=== PATIENT | male | born 1945 | race Caucasian/White ===

== ENCOUNTER 2020-08-14 23:29 | Emergency (ER) | payer MEDICARE, SELFPAY ==
[2020-08-14 23:42] VITALS: BP 143/68; PULSE 74; RESP 16; TEMP 36.4; O2SAT 96; BMI 28.4
--- NOTE | 2020-08-15 00:02 | ED_ITS ---
HPI - Male Genitourinary General Chief complaint: Urogenital-Male Stated complaint: blood in catheter Time Seen by Provider: 08/15/20 00:00 History of Present Illness HPI Narrative: Patient is a 75-year-old male paraplegic presented today with having blood in the Beth catheter. Question unable to urinate. Patient had a Beth catheter chronically. Apparently was not draining well this morning. Visiting nurse put in a new Beth catheter. Patient has no specific complaints. No coughing congestion upper respiratory symptoms. Baseline patient unable to move lower extremity. Related Data Allergies Allergy/AdvReac Type Severity Reaction Status Date / Time No Known Allergies Allergy Verified 08/14/20 23:40 [No Known Allergies*] Review of Systems Review of Systems: Constitutional: No Weight loss, No Fever, No Chills, No Night Sweats, No Fatigue, No Malaise ENT/Mouth: No Hearing loss, No Ear Pain, No Nasal Congestion, No Sinus Pain, No Hoarseness, No sore throat, No Rhinorrhea, No Swallowing Difficulty Eyes: No Eye Pain, No Swelling, No Redness, No Foreign Body, No Discharge, No Vision Changes Cardiovascular: No Chest Pain, No SOB, No Dyspnea on Exertion, No Orthopnea, No Edema, No Palpitations Respiratory: No Cough, No Sputum, No Wheezing, No Smoke Exposure, No Dyspnea Gastrointestinal: No Nausea, No Vomiting, No Diarrhea, No Constipation, No abdominal Pain, No Hematochezia, No Melena Genitourinary: no irregular bleeding, No Dysuria, No Urinary Frequency, Musculoskeletal: No joint pain, No Myalgias, No Joint Swelling Skin: No Skin Lesions, No rash Neuro: No Weakness, No Numbness, No Paresthesias, No Loss of Consciousness, No Dizziness, No Headache Psych: No Anxiety/Panic, No Depression, No SI/HI/AH/VH, No Social Issues, Heme/Lymph: No Bruising, No Bleeding,No Lymphadenopathy Endocrine: No Polyuria, No Polydipsia, No Temperature Intolerance PMFSH Past Medical History Attestation statement: The following information was validated with the patient. Medical History Spinal cord injury Physical Exam Vital Signs: Vital Signs: Last Vital Signs Temp 97.6 F 08/14/20 23:42 Pulse 74 08/14/20 23:42 Resp 16 11/07/20 23:42 BP 143/68 H 08/14/20 23:42 Pulse Ox 96 08/14/20 23:42 Body Mass Index 28.4 Appearance: Alert. Oriented X3. No acute distress. Eyes: Pupils equal, round and reactive to light. ENT: Pharynx normal. Neck: Normal inspection. Neck supple. No lymph nodes noted. No crepitus CVS: Normal heart rate and rhythm. Pulses normal. Normal S1 and S2 Respiratory: No respiratory distress. Breath sounds normal. No Wheezing. No rales Abdomen: Soft and nontender. No rigidity. No distention. good BS x4 Skin: Skin warm and dry. Normal skin color. Normal skin turgor. Extremities: No lower extremity edema. Neurovascular intact to all extremities. No Lacerations. No Rash Neuro: Oriented X 3. No motor function in bilateral lower extremity MDM - Male Genitourinary MDM Narrative Medical decision making narrative: Patient's bladder scan showed residual of 0. No evidence of retention. There is urine draining out of the catheter. It appears a Beth catheter is working. Patient's hemoglobin is 15.7. No evidence for anemia. Patient's electrolytes consistent with some mild dehydration. There is positive colonization noted in the urine. Patient has no fever no chills no symptoms. The leukocyte esterase and bacteria likely secondary to colonization. Patient in no distress. Will discharge patient home. Medical Records Attestation: I reviewed the patient's medical records. Lab Data Attestation: I reviewed the patient's lab results. Result diagrams: 08/15/20 00:17 08/15/20 00:17 Labs: Lab Results 08/15/20 08/15/20 08/15/20 Range/Units 00:17 00:17 00:17 WBC 7.3 (4.8-10.8) X10*3/uL RBC 5.01 (4.60-5.80) X10*6/uL Hgb 15.7 (14.0-18.0) g/dl Hct 48.1 (42-52) % MCV 96.0 (80-98) fL MCH 31.3 (27.0-33.0) pg MCHC 32.6 (31.0-36.0) g/dl RDW 12.8 (11.0-16.0) % Plt Count 158 L (160-400) X10*3/uL MPV 10.0 (9.4-12.4) fL Immature Gran % (Auto) 0.3 (0.0-0.4) % Neut % (Auto) 75.1 H (45-73) % Lymph % (Auto) 14.9 L (20-40) % [place] % (Auto) 7.4 (2-11) % Eos % (Auto) 1.9 (0-4) % Baso % (Auto) 0.4 (0-2) % Lymph # (Auto) 1.1 L (1.2-4.9) X10*3/uL [place] # (Auto) 0.5 (0.1-1.2) X10*3/uL Eos # (Auto) 0.1 (0.0-0.4) X10*3/uL Baso # (Auto) 0.0 (0.0-0.2) X10*3/uL Abs Immat Gran (auto) 0.02 (0.00-0.03) X10*3/uL Absolute Neuts (auto) 5.5 (2.0-8.3) X10*3/uL Absolute Nucleated RBC 0.000 (0.0-0.012) X10*3/uL Nucleated RBC % (auto) 0.0 (0.0-0.2) /100WBC Sodium 141 (135-145) mmol/L Potassium 4.6 (3.3-5.1) mmol/l Chloride 107 (96-108) mmol/L Carbon Dioxide 25 (22-29) mmol/L Anion Gap 14 (12-20) BUN 27 H (9-16) mg/dL Creatinine 0.97 (0.5-1.4) mg/dL Estim Creat Clear Calc 79.9 Estimated GFR > 60 Random Glucose 97 (60-115) mg/dL Calcium 9.1 (8.4-10.2) mg/dL Urine Color DARK YELLOW Urine Appearance HAZY Urine pH 7.0 (5.0-8.0) Ur Specific [place] 1.010 (1.005-1.025) Urine Protein 1+ H (NEG-TRACE) MG/DL Urine Glucose (UA) NEG (NEG) MG/DL Urine Ketones NEG (NEG) MG/DL Urine Blood 3+ H (NEG) Urine Nitrite POS H (NEG) Ur Leukocyte Esterase 3+ H (NEG) Urine RBC 15-29 H (0) /HPF Urine WBC 15-29 H (0-4) /HPF Ur Squamous Epith Cells NONE /LPF Triple Phos Crystals 1+ /LPF Urine Bacteria 3+ /LPF Discharge Plan Discharge Clinical Impression: Chronic indwelling Beth catheter Patient Disposition: Home, Self-Care Instructions: Beth Catheter Placement and Care (ED) Referrals: Deandre Huang MD [Physician] - 2 days
[2020-08-15 00:23] LABS: MANUAL DIFF FLAG NO
[2020-08-15 00:32] LABS: Glucose Urine UA NEG (NEG); Leukocyte Esterase Urine 3+ (NEG); Nitrite Urine POS (NEG); Urine Blood 3+ (NEG); Urine Ketones NEG (NEG); Urine Protein 1+ MG/DL (NEG-TRACE)
[2020-08-15 00:33] LABS: Basophils Percent Auto 0.4 % (0-2); Eosinophils Absolute Auto 0.1 X10*3/uL (0.0-0.4); Eosinophils Percent Auto 1.9 % (0-4); Hematocrit 48.1 % (42-52); Hemoglobin 15.7 g/dl (14.0-18.0); Imm Gran Abs Auto 0.02 X10*3/uL (0.00-0.03); Imm Gran Pct Auto 0.3 % (0.0-0.4); Lymphocytes Absolute Auto 1.1 X10*3/uL (1.2-4.9); Lymphocytes Percent Auto 14.9 % (20-40); Mean Corpuscular HGB Conc 32.6 g/dl (31.0-36.0); Mean Corpuscular Hemoglobin 31.3 pg (27.0-33.0); Monocytes Absolute Auto 0.5 X10*3/uL (0.1-1.2); Monocytes Percent Auto 7.4 % (2-11); Neutrophils Absolute Auto 5.5 X10*3/uL (2.0-8.3); Neutrophils Percent Auto 75.1 % (45-73); Platelet Count 158 X10*3/uL (160-400); Red Blood Count 5.01 X10*6/uL (4.60-5.80); Red Cell Distribution Width 12.8 % (11.0-16.0); White Blood Count 7.3 X10*3/uL (4.8-10.8)
[2020-08-15 00:34] LABS: Appearance Urine HAZY; Color Urine DARK YELLOW
[2020-08-15 00:44] LABS: Bacteria Urine 3+ /LPF
[2020-08-15 00:45] LABS: Triple Phosphate Crystal Urine 1+ /LPF
[2020-08-15 00:58] LABS: Anion Gap 14 (12-20); Blood Urea Nitrogen 27 mg/dL (9-16); Calcium 9.1 mg/dL (8.4-10.2); Carbon Dioxide 25 mmol/L (22-29); Chloride 107 mmol/L (96-108); Creatinine Clr Calc Pharmacy 79.9; Estimated Glomerular Filt Rate > 60; Glucose Random 97 mg/dL (60-115); Potassium 4.6 mmol/l (3.3-5.1); Sodium 141 mmol/L (135-145)
--- NOTE | 2020-08-15 02:26 | PC.NURSE ---
pt had 2 large soft brown BM's, pt cleaned and linen changed. 800cc's urine from [facility]. pt has lower extremity paralysis x 15 years from a spinal cord injury. bilateral edema to feet normal for pt, pt pointed this out upon arrival.
== END 2020-08-15 02:29 | disposition home or self-care (01) ==
LOC: HO.ED 08-15 01:31
PROVIDERS: Emergency Provider Emergency Medicine Emergency Medical Services
DX: T83.9XXA Unspecified complication of genitourinary prosthetic device, implant and graft, initial encounter (principal); Y82.9 Unspecified medical devices associated with adverse incidents; Y92.9 Unspecified place or not applicable
CPT/HCPCS: 36415; 80048; 81001; 85025; 87086; 99283

== ENCOUNTER 2020-09-03 08:27 | Emergency (ER) | payer MEDICARE, SELFPAY ==
--- NOTE | 2020-09-03 08:37 | ED.MALEGU ---
HPI - Male Genitourinary General Chief complaint: Urogenital-Male Stated complaint: urinary retention Time Seen by Provider: 09/03/20 08:36 History of Present Illness HPI Narrative: Patient is a 75-year-old male complaining of unable to urinate. Patient baseline has a Beth catheter. No output from the catheter. Visiting nurse attempted to place a new Beth to no avail. Nothing coming out patient sent to the emergency department for further evaluation Related Data Allergies Allergy/AdvReac Type Severity Reaction Status Date / Time No Known Allergies Allergy Verified 08/14/20 23:40 [No Known Allergies*] Review of Systems Review of Systems: Constitutional: No Weight loss, No Fever, No Chills, No Night Sweats, No Fatigue, No Malaise ENT/Mouth: No Hearing loss, No Ear Pain, No Nasal Congestion, No Sinus Pain, No Hoarseness, No sore throat, No Rhinorrhea, No Swallowing Difficulty Eyes: No Eye Pain, No Swelling, No Redness, No Foreign Body, No Discharge, No Vision Changes Cardiovascular: No Chest Pain, No SOB, No Dyspnea on Exertion, No Orthopnea, No Edema, No Palpitations Respiratory: No Cough, No Sputum, No Wheezing, No Smoke Exposure, No Dyspnea Gastrointestinal: No Nausea, No Vomiting, No Diarrhea, No Constipation, No abdominal Pain, No Hematochezia, No Melena Genitourinary: Unable to urinate Musculoskeletal: No joint pain, No Myalgias, No Joint Swelling Skin: No Skin Lesions, No rash Neuro: No Weakness, No Numbness, No Paresthesias, No Loss of Consciousness, No Dizziness, No Headache Psych: No Anxiety/Panic, No Depression, No SI/HI/AH/VH, No Social Issues, Heme/Lymph: No Bruising, No Bleeding,No Lymphadenopathy Endocrine: No Polyuria, No Polydipsia, No Temperature Intolerance [facility] Past Medical History Attestation statement: The following information was validated with the patient. Medical History Spinal cord injury Social History Social History Advance Directives: No Advance Directives Information Provided: Yes Physical Exam Vital Signs: Vital Signs: Last Vital Signs Temp 98 F 09/03/20 09:19 Pulse 72 09/03/20 09:19 Resp 18 09/03/20 09:19 Pulse Ox 98 09/03/20 09:19 Body Mass Index 26.7 Appearance: Alert. Oriented X3. No acute distress. Eyes: Pupils equal, round and reactive to light. ENT: Pharynx normal. Neck: Normal inspection. Neck supple. No lymph nodes noted. No crepitus CVS: Normal heart rate and rhythm. Pulses normal. Normal S1 and S2 Respiratory: No respiratory distress. Breath sounds normal. No Wheezing. No rales Abdomen: Soft and nontender. No rigidity. No distention. good BS x4 Skin: Skin warm and dry. Normal skin color. Normal skin turgor. Extremities: No lower extremity edema. Neurovascular intact to all extremities. No Lacerations. No Rash Neuro: Oriented X 3. No motor deficit. No sensory deficit. Moving all extermities. No slurred speech MDM - Male Genitourinary MDM Narrative Medical decision making narrative: Patient had difficulty urinating. Beth does not appear to be in place. A bladder scan was done on arrival was over 500. A new Beth catheter will be placed. After new Beth placed by nursing. Symptoms resolved. Will discharge patient home over L of urine was drained. Discharge Plan Discharge Clinical Impression: Acute retention of urine Patient Disposition: Home, Self-Care Instructions: Beth Catheter Placement and Care (ED) Referrals: Deandre Huang MD [Physician] - 2 days
[2020-09-03 08:42] VITALS: BP 147/68; PULSE 70; PULSE 72; RESP 18; TEMP 36.6; O2SAT 98; BMI 26.7
[2020-09-03] MEDS: Lidocaine HCl 2 % Urojet 10 ML JEL.PF.APP TOPICAL (08:54)
[2020-09-03 09:19] VITALS: PULSE 72; RESP 18; TEMP 36.6; O2SAT 98
== END 2020-09-03 10:20 | disposition home or self-care (01) ==
PROVIDERS: Emergency Provider Emergency Medicine Emergency Medical Services; PCP Internal Medicine
DX: R33.9 Retention of urine, unspecified (principal)
CPT/HCPCS: 99284

== ENCOUNTER 2020-10-29 10:38 | Emergency (ER) | payer MEDICARE, SELFPAY ==
[2020-10-29 10:45] VITALS: BP 139/92; PULSE 80; RESP 18; TEMP 36.6; O2SAT 98; BMI 25.6
--- NOTE | 2020-10-29 10:54 | ED_ITS ---
HPI - Male Genitourinary General Chief complaint: Urogenital-Male Stated complaint: cath issues Time Seen by Provider: 10/29/20 10:54 Source: patient Mode of arrival: EMS Limitations: no limitations History of Present Illness HPI Narrative: Patient has history of chronic Beth catheter catheter was changed 8 days ago patient comes here as unable to urinate since last night a bladder scan showed urine more than 678 cc in bladder patient feels some discomfort. No hematuria no fever Related Data Previous Rx's Medication Instructions Recorded ciprofloxacin HCl [Cipro] 500 mg PO BID #20 tab 10/29/20 Allergies Allergy/AdvReac Type Severity Reaction Status Date / Time No Known Allergies Allergy Verified 08/14/20 23:40 [No Known Allergies*] Review of Systems Review of Systems: Constitutional : No Weight loss, No Fever, No Chills ENT/Mouth : No sore throat, No Rhinorrhea Eyes: No Eye Pain, No Swelling Cardiovascular : No Chest Pain, no palpitations Respiratory : No Cough, No Sputum, no shortness of breath Gastrointestinal : no Nausea, No Vomiting, No Diarrhea, No abdominal Pain, no black stools Genitourinary : No Dysuria, No Urinary Frequency Musculoskeletal : No joint pain, No Myalgias, No Joint Swelling Skin : No Skin Lesions, No rash Neuro : No Weakness, No Numbness, No Dizziness, No Headache Psych : No Anxiety/Panic, No Depression Heme/Lymph: No Bruising, No Lymphadenopathy Endocrine : No Polyuria, No Polydipsia All other systems reviewed and are negative PMFSH Past Medical History Medical History Spinal cord injury Social History Social History Advance Directives: No Advance Directives Information Provided: Yes Physical Exam Vital Signs: Vital Signs: Last Vital Signs Temp 97.9 F 10/29/20 10:45 Pulse 80 10/29/20 10:45 Resp 18 10/29/20 10:45 BP 139/92 H 10/29/20 10:45 Pulse Ox 98 10/29/20 10:45 Body Mass Index 25.6 Appearance: Alert. Oriented X3. No acute distress. Eyes: Pupils equal, round and reactive to light. ENT: Pharynx normal. Neck: Normal inspection. Neck supple. CVS: Normal heart rate and rhythm. Pulses normal. Respiratory: No respiratory distress. Breath sounds normal. Abdomen: Soft and nontender. Bowel sounds are present, no mass palpable, no CVA tenderness Beth catheter in place Skin: Skin warm and dry. Normal skin color. Normal skin turgor. Extremities: No lower extremity edema. Neuro: Oriented X 3. Paraplegic Course Course Course Narrative: Patient with blocked Beth catheter unable to flush will change the Beth catheter and check the urine MDM - Male Genitourinary MDM Narrative Medical decision making narrative: Patient with chronic Beth catheter recurrent UTI urine shows UTI will discharge him home on Levaquin signs of sepsis at this time Lab Data Attestation: I reviewed the patient's lab results. Labs: Lab Results 10/29/20 Range/Units 11:17 Urine Color YELLOW Urine Appearance TURBID Urine pH 8.5 H (5.0-8.0) Ur Specific [place] 1.020 (1.005-1.025) Urine Protein 2+ H (NEG-TRACE) MG/DL Urine Glucose (UA) NEG (NEG) MG/DL Urine Ketones 5 (NEG) MG/DL Urine Blood 2+ H (NEG) Urine Nitrite POS H (NEG) Ur Leukocyte Esterase 3+ H (NEG) Urine RBC 15-29 H (0) /HPF Urine WBC 50-75 H (0-4) /HPF Ur Squamous Epith Cells NONE /LPF Triple Phos Crystals 1+ /LPF Urine Bacteria 3+ /LPF Discharge Plan Discharge Clinical Impression: Chronic indwelling Beth catheter Urinary tract infection Qualifiers: Urinary tract infection type: acute cystitis Hematuria presence: without hematuria Qualified Code(s): N30.00 - Acute cystitis without hematuria Patient Disposition: Home, Self-Care Instructions: Catheter-associated Urinary Tract Infection (ED) Additional Instructions: Drink plenty of water take antibiotic as prescribed. Report to the ER/PCP if fever/chills/vomiting/abdominal pain/back pain Prescriptions: New ciprofloxacin HCl [Cipro] 500 mg tablet 500 mg PO BID Qty: 20 RF: 0 Interventions: ED Discharge Assessment Last Done: 10/29/20 14:12 Discharge Date/Time: 10/29/20 14:13
[2020-10-29 11:28] LABS: Glucose Urine UA NEG (NEG); Nitrite Urine POS (NEG); PH 8.5 (5.0-8.0); UACC Culture Trigger YES; Urine Blood 2+ (NEG); Urine Ketones 5 MG/DL (NEG)
[2020-10-29 11:30] LABS: Appearance Urine TURBID; Color Urine YELLOW; Leukocyte Esterase Urine 3+ (NEG); Urine Protein 2+ MG/DL (NEG-TRACE)
[2020-10-29 11:38] LABS: Bacteria Urine 3+ /LPF; Triple Phosphate Crystal Urine 1+ /LPF; WBC Urine 50-75 /HPF (0-4)
[2020-10-29] MEDS: levoFLOXacin 500 MG TABLET PO (13:12)
== END 2020-10-29 14:13 | disposition home or self-care (01) ==
PROVIDERS: Emergency Provider Internal Medicine; PCP Internal Medicine
DX: T83.511A Infection and inflammatory reaction due to indwelling urethral catheter, initial encounter (principal); N30.00 Acute cystitis without hematuria
CPT/HCPCS: 51702; 51798; 81001; 81003; 87086; 99283

== ENCOUNTER 2021-02-20 21:40 | Emergency (ER) | payer MEDICARE, SELFPAY ==
[2021-02-20 21:46] VITALS: BP 158/84; PULSE 107; RESP 16; TEMP 36.4; O2SAT 95; BMI 23.7
[2021-02-20 22:03] LABS: Glucose Urine UA NEG (NEG); Leukocyte Esterase Urine 3+ (NEG); Nitrite Urine NEG (NEG); PH 8.5 (5.0-8.0); UACC Culture Trigger YES; Urine Blood 3+ (NEG); Urine Ketones NEG (NEG); Urine Protein NEG (NEG-TRACE)
[2021-02-20 22:05] LABS: Appearance Urine HAZY; Color Urine YELLOW
--- NOTE | 2021-02-20 22:17 | ED_ITS ---
HPI - General Adult General Chief complaint: General Medical Stated complaint: abd pain ? uti Time Seen by Provider: 02/20/21 22:17 Source: patient Mode of arrival: EMS Limitations: no limitations History of Present Illness HPI narrative: Patient paraplegic complaining of strong odor in the urine and increased sediments with lower abdominal pain. Patient chronic Beth catheter for last 10 years after spinal cord injury last time had infection was 4 weeks ago no fever no chills no nausea or vomiting catheter was changed about 11 days ago Related Data Previous Rx's Medication Instructions Recorded ciprofloxacin HCl [Cipro] 500 mg PO BID #20 tab 10/29/20 levofloxacin 500 mg PO DAILY 10 Days #10 tab 02/20/21 Allergies Allergy/AdvReac Type Severity Reaction Status Date / Time No Known Allergies Allergy Verified 08/14/20 23:40 [No Known Allergies*] Review of Systems Review of Systems: Yes all other systems are reviewed and are negative PMFSH Past Medical History Medical History Spinal cord injury Social History Social History Alcohol intake: current Alcohol intake frequency: 0-2 drinks per day Smoking Status: Never smoker Smoked in Last 30 Days: No Use of substances other than those prescribed or required for medical reasons: No Advance Directives: No Advance Directives Information Provided: No Physical Exam Vital Signs: Vital Signs: Last Vital Signs Temp 97.5 F 02/20/21 21:46 Pulse 107 H 02/20/21 21:46 Resp 16 02/20/21 21:46 BP 158/84 H 02/20/21 21:46 Pulse Ox 95 02/20/21 21:46 Body Mass Index 23.7 Const: General: comfortable and no acute distress Orientation/consciousness : patient oriented x3 HENMT: Head: Yes normocephalic Eyes: General: appearance normal, both eyes and all related structures Neck: Neck: Yes normal visual inspection Chest: Chest palpation & inspection: normal inspection of the chest Resp: Effort & Inspection: normal respiratory effort Auscultation: clear to auscultation bilaterally Cardio: Palpation: normal PMI Rate: regular rate Rhythm: regular rhythm Heart sounds: S1 normal heart sound present and S2 normal heart sound present Skin: General skin exam: no rashes or lesions noted Neuro: Other: Paraplegic General: patient oriented x3 Extrem: General: Yes no calf tenderness and Yes pedal edema (2+) Medical Decision Making MDM Narrative Medical decision making narrative: Patient with paraplegia with chronic indwelling Beth catheter. Bladder scan showed 1000 cc of urine UA was increased WBC count and sediment. New Beth catheter was replaced will start him on Levaquin for 10 days Lab Data Lab results reviewed: Yes I reviewed the patient's lab results. Labs: Lab Results 02/20/21 Range/Units 21:58 Urine Color YELLOW Urine Appearance HAZY Urine pH 8.5 H (5.0-8.0) Ur Specific [place] 1.010 (1.005-1.025) Urine Protein NEG (NEG-TRACE) MG/DL Urine Glucose (UA) NEG (NEG) MG/DL Urine Ketones NEG (NEG) MG/DL Urine Blood 3+ H (NEG) Urine Nitrite NEG (NEG) Ur Leukocyte Esterase 3+ H (NEG) Urine RBC 5-9 H (0) /HPF Urine WBC 1-4 (0-4) /HPF Ur Squamous Epith Cells NONE /LPF Triple Phos Crystals TRACE /LPF Amorphous Sediment 2+ /LPF Urine Bacteria 1+ /LPF Discharge Plan Discharge Clinical Impression: Acute urinary retention, Acute UTI Patient Disposition: Home, Self-Care Instructions: Catheter-associated Urinary Tract Infection (ED) Additional Instructions: Drink plenty of fluids Take antibiotics as prescribed Follow-up with your PCP Report to ER if high fever vomiting not feeling better Prescriptions: New levofloxacin 500 mg tablet 500 mg PO DAILY 10 Days Qty: 10 RF: 0 No Action ciprofloxacin HCl [Cipro] 500 mg tablet 500 mg PO BID Qty: 20 RF: 0
[2021-02-20 22:19] LABS: Amorphous Sediment Urine 2+ /LPF; Bacteria Urine 1+ /LPF; Triple Phosphate Crystal Urine TRACE /LPF; UACC CULT YES
[2021-02-20] MEDS: levoFLOXacin 500 MG TABLET PO (23:12)
--- NOTE | 2021-02-21 00:45 | PC.NURSE ---
PT discharged with EMS. Pt was alert, oriented and without distress noted. Previous RN's provided patient with and reviewed discharged instructions. Upon EMS' arrival the patient denied questions/concerns.
== END 2021-02-21 00:45 | disposition home or self-care (01) ==
PROVIDERS: Emergency Provider Internal Medicine
DX: R33.9 Retention of urine, unspecified (principal); N39.0 Urinary tract infection, site not specified; Z79.899 Other long term (current) drug therapy
CPT/HCPCS: 81001; 87086; 99284

== ENCOUNTER 2021-03-14 11:02 | Emergency (ER) | payer MEDICARE, SELFPAY ==
[2021-03-14 11:10] VITALS: BP 146/85; O2SAT 100; BMI 29.7
--- NOTE | 2021-03-14 11:31 | ED_ITS ---
HPI - General Adult General Chief complaint: General Medical Stated complaint: SINUS PAIN Time Seen by Provider: 03/14/21 11:31 Source: patient Mode of arrival: EMS Limitations: no limitations History of Present Illness HPI narrative: patient with severe right upper gum pain after putting in dentures. 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 States he tried to put in dentures and got severe pain that went into his right cheek. Onset (ago): minute(s) Location: mouth Radiation: other (right cheek) Severity: moderate Quality: stabbing Pain Consistency: intermittent Exacerbating factors: other (applying dentures) Related Data Previous Rx's Medication Instructions Recorded ciprofloxacin HCl [Cipro] 500 mg PO BID #20 tab 10/29/20 levofloxacin 500 mg PO DAILY 10 Days #10 tab 02/20/21 Allergies Allergy/AdvReac Type Severity Reaction Status Date / Time No Known Allergies Allergy Verified 08/14/20 23:40 [No Known Allergies*] Review of Systems Constitutional: Constitutional: Reports no additional constitutional complaints Eyes: Eyes: Reports no additional eye complaints ENT: Denies dizziness Cardiovascular: Cardiovascular: Reports no additional cardiovascular complaints Respiratory: Respiratory: Reports as per HPI Gastrointestinal: Gastrointestinal: Reports no additional gastrointestinal complaints Musculoskeletal: Musculoskeletal: Reports no additional musculoskeletal complaints Integumentary/Breasts: Skin/Breast: Denies rash Neurologic: Reports system reviewed and no additional complaints, except as documented, Denies dizziness and Denies Sensory deficit (Neuro) Psychiatric: Psychiatric: Denies anxiety [facility] Past Medical History Medical History Spinal cord injury Social History Social History Alcohol intake: current Alcohol intake frequency: 0-2 drinks per day Advance Directives: No Advance Directives Information Provided: No Physical Exam Vital Signs: Vital Signs: Last Vital Signs BP 146/85 H 03/14/21 11:10 Pulse Ox 100 03/14/21 11:10 Body Mass Index 29.7 Const: Other: elderly male quadriplegic Nutritional Appearance: average body habitus Orientation/consciousness: oriented to person and patient oriented x3 Limitations: no limitations HENMT: Other: mucous membrane erythema to right upper gum secondary to dentures Head: Yes normal to inspection Ears: external ears normal General nose exam: Normal external nose present Throat: Yes posterior oropharynx normal Eyes: General: appearance normal, both eyes and all related structures Neck: Other: supple Neck: Yes normal visual inspection Chest: Chest palpation & inspection: normal inspection of the chest Resp: Auscultation: clear to auscultation bilaterally Cardio: Jugular venous distension: no JVD Rate: regular rate Rhythm: regular rhythm Heart sounds: S1 normal heart sound present and S2 normal heart sound present GI: Inspection: Yes normal to inspection Palpation (GI): Soft to palpation, nontender and No hepatosplenomegaly present Auscultation: normal bowel sounds : General: Yes no CVA tenderness Back/Spine/Pelvis: Back: no CVA tenderness Skin: General skin exam: no rashes or lesions noted Neuro: General: oriented to person and patient oriented x3 Cranial nerves: Yes CN's II-XII intact bilaterally Sensory Exam: No Sensory deficit (Neuro) Extrem: General: Yes normal to inspection Psych: Appearance: grossly normal Course Course Course Narrative: Patient with irritation to his gums secondary to dentures Discharge Plan Discharge Clinical Impression: Gum inflammation Patient Disposition: Home, Self-Care Additional Instructions: salt water gargles, must see your dentist Prescriptions: No Action levofloxacin 500 mg tablet 500 mg PO DAILY 10 Days Qty: 10 RF: 0 ciprofloxacin HCl [Cipro] 500 mg tablet 500 mg PO BID Qty: 20 RF: 0 Referrals: Phillip Gates MD [Primary Care Provider] - 1 week
[2021-03-14] MEDS: Lidocaine HCl Viscous 2 % 15 ML SOLUTION 5 ML MUCOUS MEM (11:45)
[2021-03-14] MEDS: Amoxicillin 500 MG CAPSULE PO (12:41)
[2021-03-14 13:35] VITALS: BP 135/62; PULSE 68; RESP 16; TEMP 36.7; O2SAT 98
== END 2021-03-14 14:11 | disposition home or self-care (01) ==
PROVIDERS: Emergency Provider Emergency Medicine; PCP Internal Medicine
DX: K05.10 Chronic gingivitis, plaque induced (principal); G82.50 Quadriplegia, unspecified
CPT/HCPCS: 99283; 99284

== ENCOUNTER 2021-04-01 13:01 | Inpatient (IN) | payer MEDICARE, SELFPAY ==
--- NOTE | ~2021-04-01 | XR_ITS ---
EXAMINATION: XR FOOT, BILATERAL CLINICAL INFORMATION: Bilateral foot wound. COMPARISON: None TECHNIQUE: 2 views each foot. FINDINGS: RIGHT FOOT: There is mild hallux valgus deformity with mild degenerative spurring 1st MTP joint. There is diffuse osteopenia. No visible acute fracture, dislocation or subluxation seen. The joint space is maintained normal. The ankle mortise and subtalar joints are normal. There is moderate dorsal foot soft tissue swelling. LEFT FOOT: There is moderate dorsal midfoot soft tissue swelling. There is a nondisplaced fracture proximal segment proximal phalanx 1st digit. No other fractures seen. There is diffuse osteopenia. The ankle mortise and subtalar joints are normal. XR/XR foot RT 2V IMPRESSION: Nondisplaced fracture proximal end proximal phalanx 1st digit left foot. There is diffuse osteopenia of the entire foot with moderate dorsal foot soft tissue swelling. There is moderate right dorsal midfoot soft tissue swelling but no visible fracture or dislocation. There is diffuse osteopenia. There is degenerative spurring 1st metatarsophalangeal joint.
--- NOTE | ~2021-04-01 | XR_ITS ---
EXAMINATION: XR FOOT, BILATERAL CLINICAL INFORMATION: Bilateral foot wound. COMPARISON: None TECHNIQUE: 2 views each foot. FINDINGS: RIGHT FOOT: There is mild hallux valgus deformity with mild degenerative spurring 1st MTP joint. There is diffuse osteopenia. No visible acute fracture, dislocation or subluxation seen. The joint space is maintained normal. The ankle mortise and subtalar joints are normal. There is moderate dorsal foot soft tissue swelling. LEFT FOOT: There is moderate dorsal midfoot soft tissue swelling. There is a nondisplaced fracture proximal segment proximal phalanx 1st digit. No other fractures seen. There is diffuse osteopenia. The ankle mortise and subtalar joints are normal. XR/XR foot LT 2V IMPRESSION: Nondisplaced fracture proximal end proximal phalanx 1st digit left foot. There is diffuse osteopenia of the entire foot with moderate dorsal foot soft tissue swelling. There is moderate right dorsal midfoot soft tissue swelling but no visible fracture or dislocation. There is diffuse osteopenia. There is degenerative spurring 1st metatarsophalangeal joint.
[2021-04-01 13:12] VITALS: BP 189/79; PULSE 55; RESP 17; TEMP 36.6; O2SAT 99; BMI 26.5
[2021-04-01 13:30] VITALS: BP 183/79; PULSE 65; RESP 16; TEMP 36.6; O2SAT 99
[2021-04-01 13:49] LABS: MANUAL DIFF FLAG NO
[2021-04-01 13:50] LABS: Basophils Percent Auto 0.3 % (0-2); Eosinophils Absolute Auto 0.1 X10*3/uL (0.0-0.4); Eosinophils Percent Auto 1.8 % (0-4); Hematocrit 51.2 % (42-52); Hemoglobin 16.2 g/dl (14.0-18.0); Imm Gran Abs Auto 0.01 X10*3/uL (0.00-0.03); Imm Gran Pct Auto 0.3 % (0.0-0.4); Lymphocytes Absolute Auto 0.7 X10*3/uL (1.2-4.9); Lymphocytes Percent Auto 16.5 % (20-40); Mean Corpuscular HGB Conc 31.6 g/dl (31.0-36.0); Mean Corpuscular Hemoglobin 31.1 pg (27.0-33.0); Mean Corpuscular Volume 98.3 fL (80-98); Mean Platelet Volume 9.8 fL (9.4-12.4); Monocytes Absolute Auto 0.3 X10*3/uL (0.1-1.2); Monocytes Percent Auto 7.6 % (2-11); Neutrophils Absolute Auto 2.9 X10*3/uL (2.0-8.3); Neutrophils Percent Auto 73.5 % (45-73); Platelet Count 182 X10*3/uL (160-400); Red Blood Count 5.21 X10*6/uL (4.60-5.80); Red Cell Distribution Width 13.2 % (11.0-16.0)
[2021-04-01 13:55] LABS: INTERNATIONAL NORM RATIO 0.9 (0.9-1.1); Prothrombin Time 11.2 SEC (10.8-13.0)
[2021-04-01 14:23] LABS: Glucose Urine UA NEG (NEG); Leukocyte Esterase Urine 3+ (NEG); Nitrite Urine NEG (NEG); PH 7.5 (5.0-8.0); UACC Culture Trigger YES; Urine Blood NEG (NEG); Urine Ketones NEG (NEG); Urine Protein NEG (NEG-TRACE)
[2021-04-01 14:24] LABS: Appearance Urine HAZY; B Type Natriuretic Peptide 82 pg/mL (<100); Color Urine YELLOW
[2021-04-01 14:33] LABS: Alanine Aminotransferase 14 U/L (0-40); Albumin Level 4.1 g/dL (3.5-5.0); Alkaline Phosphatase 121 U/L (39-117); Anion Gap 13 (12-20); Aspartate Amino Transferase 28 U/L (5-37); Bilirubin Total 0.5 mg/dL (0.0-1.0); Blood Urea Nitrogen 16 mg/dL (9-16); Calcium 9.9 mg/dL (8.4-10.2); Carbon Dioxide 31 mmol/L (22-29); Chloride 103 mmol/L (96-108); Creatinine Clr Calc Pharmacy 107.5; Estimated Glomerular Filt Rate > 60; Glucose Random 108 mg/dL (60-115); Magnesium 2.3 mg/dL (1.6-2.6); Potassium 5.1 mmol/L (3.3-5.1); Sodium 142 mmol/L (135-145); Total Protein 7.4 g/dL (6.5-8.0)
--- NOTE | 2021-04-01 14:33 | HE.PHANOTE ---
Pharmacy Consult ? Medication Reconciliation Pharmacy has completed the medication reconciliation and there were no significant medication issues requiring provider attention. Wendy EngleD
[2021-04-01 14:37] VITALS: BP 179/92; PULSE 60; RESP 18; O2SAT 99
[2021-04-01 14:37] LABS: Bacteria Urine 2+ /LPF; RBC Urine 0-2 /HPF (0)
[2021-04-01 14:38] LABS: WBC Clumps Urine NOTED
--- NOTE | 2021-04-01 14:56 | ED_ITS ---
HPI - Wound/Laceration General Chief Complaint: Wound/Laceration Stated Complaint: left foot wound ?infection Time Seen by Provider: 04/01/21 13:18 Source: patient and EMS Mode of arrival: EMS Limitations: no limitations History of Present Illness HPI narrative: 75-year-old male with a past medical history of spinal cord injury now paraplegic with chronic lymphedema of bilateral lower extremities, trigeminal neuralgia, chronic UTIs with Beth catheter in place presenting to the ED with complaints of worsening pain/redness/drainage of the wound to his left lower foot dorsal aspect that he sustained approximately 3 months ago although approximately 1-2 weeks ago he re-injured it and the scab fell off and is progressively worsening. He reports that he is wheelchair-bound due to him being paralyzed from a spinal cord injury, a few weeks ago he hit his foot on the wheelchair ramp and has been trying to treat the wound himself but due to him having to transfer himself in and out of the wheelchair the wound/foot rubs against the floor and this is making the wound worse. He denies any fevers, any falls, any other injuries complaints or concerns at this time. Onset (ago): week(s) (Weeks worse today) Extremity Location: bilateral: foot Place: home Context: accidental Associated symptoms: pain and other (Redness/drainage) Treatments prior to arrival: bandage Related Data Home Medications Medication Instructions Recorded Confirmed gabapentin 1 tab PO BID PRN 04/01/21 04/01/21 Allergies Allergy/AdvReac Type Severity Reaction Status Date / Time No Known Allergies Allergy Verified 08/14/20 23:40 [No Known Allergies*] Review of Systems Review of Systems: Constitutional : No Fever, No Chills, Cardiovascular : No Chest Pain, No SOB Respiratory : No Dyspnea Gastrointestinal : No abdominal pain Musculoskeletal :positive chronic b/l LE Joint Swelling Skin : positive skin wounds, No skin laceration, No Foreign bodies, No rash, No surrounding erythema Neuro : No Weakness, No Numbness/tingling Psych : No SI/HI/thoughts of self injury Yes all other systems are reviewed and are negative [facility] Past Medical History Attestation statement: The following information was validated with the patient. Medical History (Updated 04/01/21 @ 16:27 by CATHY Mathur) Chronic UTI (urinary tract infection) Beth catheter in place Paraplegia Spinal cord injury Social History Social History Alcohol intake: never Patient Tobacco Use Status: Never used Tobacco Use of substances other than those prescribed or required for medical reasons: No Advance Directives: Yes Advance Directives Information Provided: Yes Advance Directives on File: No Physical Exam Vital Signs: Vital Signs: Last Vital Signs Temp 97.8 F 04/01/21 13:30 Pulse 60 04/01/21 14:37 Resp 18 04/01/21 14:37 BP 179/92 H 04/01/21 14:37 Pulse Ox 99 04/01/21 14:37 Body Mass Index 26.5 vital signs have been reviewed as normal and appeared to be correct. Blood pressure hypertensive at 189/79. Heart rate normal. Respiration rate normal. Temperature normal. Oxygen saturation normal. Appearance: Alert. Oriented X3. No acute distress. Head: Normal external exam. Normocephalic. Atraumatic. Eyes: PERRLA. EOMI. Conjunctiva and sclera normal. Eyelids normal. ENT: Pharynx normal. Uvula midline. Moist mucous membranes. Neck: Normal inspection. Neck supple. FROM. No adenopathy. No meningeal signs. CVS: Normal heart rate and rhythm. Heart sound normal. Pulses normal throughout. No murmurs/rales/gallops. Respiratory: No respiratory distress. Painless inspiration. Breath sounds normal. No wheezes/rales/rhonchi noted. Chest nontender. No accessory muscle usage noted or decreased air movement noted. Back: Full range of motion noted. No rashes/lesion/induration/fluctuance or signs of infection noted. Skin: Skin warm and dry. Normal skin color. Normal skin turgor. Patient with multiple wounds to bilateral lower feet see pictures below the main wound is on the left lower extremity on the dorsal aspect that has mild purulent drainage. Otherwise no streaking noted. No fluctuance is noted. No rashes noted. Extremities: positive lower extremity edema. No calf tenderness. Otherwise all other nontender to all other extremities. Neuro: Oriented X 3. Positive chronic bilateral lower extremity motor weakness. Positive bilateral lower extremity sensory defect. Otherwise no motor or sensory defect to upper extremities. No focal neuro deficits noted. Vascular: + radial pulses/+ 2 distal pedal pulses/+2 dorsalis pedis b/l. No cyanosis noted to upper extremity nails and lower extremity toes nails. Course Course Course Narrative: 13:30pm - 75-year-old male with a past medical history of spinal cord injury leaving him in paraplegic to his bilateral lower extremities with chronic Beth in felicita ce/chronic UTIs and lymphedema of bilateral lower extremities presenting to the ED with complaints of wounds to his bilateral lower extremities that he sustained months ago and has been treating himself at home although a few weeks ago the scabs came off in his wounds are progressively worsening with drainage. Plan: Labs, blood cultures, lactic acid, x-ray of bilateral feet, provide fluids then re-evaluate. Reevaluation(s) Reevaluation #1: - Labs return patient with a white blood cell count of 4000. Otherwise all other labs are within normal limits. UA revealed +3 leukocytes. - x-ray of bilateral feet revealed nondisplaced fracture proximal and proximal phalanx 1st digit left foot. Along with diffuse osteopenia of the entire foot with moderate dorsal foot soft tissue swelling. The right foot also has dorsal soft tissue swelling no visible fractures or dislocations. Also has diffuse osteopenia and bone sparring. Otherwise no evidence of osteomyelitis. - therefore at this time will admit the patient for cellulitis/wounds for IV antibiotics and wound care patient will end up needing VNA services as he re ports he has an aide once today for an hour. Dr. Munoz at bedside admitting patient. Patient understands agrees with this plan. Time: 15:45 MDM - Wound/Laceration Medical Records Attestation: I reviewed the patient's medical records. Lab Data Attestation: I reviewed the patient's lab results. Result diagrams: 04/01/21 13:38 04/01/21 13:38 Labs: Lab Results 04/01/21 04/01/21 04/01/21 Range/Units 13:38 13:38 13:38 WBC 4.0 L (4.8-10.8) X10*3/uL RBC 5.21 (4.60-5.80) X10*6/uL Hgb 16.2 (14.0-18.0) g/dl Hct 51.2 (42-52) % MCV 98.3 H (80-98) fL MCH 31.1 (27.0-33.0) pg MCHC 31.6 (31.0-36.0) g/dl RDW 13.2 (11.0-16.0) % Plt Count 182 (160-400) X10*3/uL MPV 9.8 (9.4-12.4) fL Immature Gran % (Auto) 0.3 (0.0-0.4) % Neut % (Auto) 73.5 H (45-73) % Lymph % (Auto) 16.5 L (20-40) % [place] % (Auto) 7.6 (2-11) % Eos % (Auto) 1.8 (0-4) % Baso % (Auto) 0.3 (0-2) % Lymph # (Auto) 0.7 L (1.2-4.9) X10*3/uL [place] # (Auto) 0.3 (0.1-1.2) X10*3/uL Eos # (Auto) 0.1 (0.0-0.4) X10*3/uL Baso # (Auto) 0.0 (0.0-0.2) X10*3/uL Abs Immat Gran (auto) 0.01 (0.00-0.03) X10*3/uL Absolute Neuts (auto) 2.9 (2.0-8.3) X10*3/uL Absolute Nucleated RBC 0.000 (0.0-0.012) X10*3/uL Nucleated RBC % (auto) 0.0 (0.0-0.2) /100WBC PT 11.2 (10.8-13.0) SEC INR 0.9 (0.9-1.1) Sodium 142 (135-145) mmol/L Potassium 5.1 (3.3-5.1) mmol/L Chloride 103 (96-108) mmol/L Carbon Dioxide 31 H (22-29) mmol/L Anion Gap 13 (12-20) BUN 16 (9-16) mg/dL Creatinine 0.72 (0.5-1.4) mg/dL Estim Creat Clear Calc 107.5 Estimated GFR > 60 Random Glucose 108 (60-115) mg/dL Lactic Acid (0.5-2.0) mmol/L Calcium 9.9 D (8.4-10.2) mg/dL Magnesium 2.3 (1.6-2.6) mg/dL Total Bilirubin 0.5 (0.0-1.0) mg/dL AST 28 (5-37) U/L ALT 14 (0-40) U/L Alkaline Phosphatase 121 H (39-117) U/L B-Natriuretic Peptide (<100) pg/mL Total Protein 7.4 (6.5-8.0) g/dL Albumin 4.1 (3.5-5.0) g/dL Urine Color Urine Appearance Urine pH (5.0-8.0) Ur Specific [place] (1.005-1.025) Urine Protein (NEG-TRACE) MG/DL Urine Glucose (UA) (NEG) MG/DL Urine Ketones (NEG) MG/DL Urine Blood (NEG) Urine Nitrite (NEG) Ur Leukocyte Esterase (NEG) Urine RBC (0) /HPF Urine WBC (0-4) /HPF Urine WBC Clumps Ur Squamous Epith Cells /LPF Urine Bacteria /LPF 04/01/21 04/01/21 04/01/21 Range/Units 13:38 13:38 13:38 WBC (4.8-10.8) X10*3/uL RBC (4.60-5.80) X10*6/uL Hgb (14.0-18.0) g/dl Hct (42-52) % MCV (80-98) fL MCH (27.0-33.0) pg MCHC (31.0-36.0) g/dl RDW (11.0-16.0) % Plt Count (160-400) X10*3/uL MPV (9.4-12.4) fL Immature Gran % (Auto) (0.0-0.4) % Neut % (Auto) (45-73) % Lymph % (Auto) (20-40) % [place] % (Auto) (2-11) % Eos % (Auto) (0-4) % Baso % (Auto) (0-2) % Lymph # (Auto) (1.2-4.9) X10*3/uL [place] # (Auto) (0.1-1.2) X10*3/uL Eos # (Auto) (0.0-0.4) X10*3/uL Baso # (Auto) (0.0-0.2) X10*3/uL Abs Immat Gran (auto) (0.00-0.03) X10*3/uL Absolute Neuts (auto) (2.0-8.3) X10*3/uL Absolute Nucleated RBC (0.0-0.012) X10*3/uL Nucleated RBC % (auto) (0.0-0.2) /100WBC PT (10.8-13.0) SEC INR (0.9-1.1) Sodium (135-145) mmol/L Potassium (3.3-5.1) mmol/L Chloride (96-108) mmol/L Carbon Dioxide (22-29) mmol/L Anion Gap (12-20) BUN (9-16) mg/dL Creatinine (0.5-1.4) mg/dL Estim Creat Clear Calc Estimated GFR Random Glucose (60-115) mg/dL Lactic Acid 2.0 (0.5-2.0) mmol/L Calcium (8.4-10.2) mg/dL Magnesium (1.6-2.6) mg/dL Total Bilirubin (0.0-1.0) mg/dL AST (5-37) U/L ALT (0-40) U/L Alkaline Phosphatase (39-117) U/L B-Natriuretic Peptide 82 (<100) pg/mL Total Protein (6.5-8.0) g/dL Albumin (3.5-5.0) g/dL Urine Color YELLOW Urine Appearance HAZY Urine pH 7.5 (5.0-8.0) Ur Specific [place] 1.010 (1.005-1.025) Urine Protein NEG (NEG-TRACE) MG/DL Urine Glucose (UA) NEG (NEG) MG/DL Urine Ketones NEG (NEG) MG/DL Urine Blood NEG (NEG) Urine Nitrite NEG (NEG) Ur Leukocyte Esterase 3+ H (NEG) Urine RBC 0-2 (0) /HPF Urine WBC 5-9 H (0-4) /HPF Urine WBC Clumps NOTED Ur Squamous Epith Cells NONE /LPF Urine Bacteria 2+ /LPF Imaging Data X-ray of bilateral feet: Attestation: I personally reviewed and interpreted this imaging study as follows: Radiologist's impression: FINDINGS: RIGHT FOOT: There is mild hallux valgus deformity with mild degenerative spurring 1st MTP joint. There is diffuse osteopenia. No visible acute fracture, dislocation or subluxation seen. The joint space is maintained normal. The ankle mortise and subtalar joints are normal. There is moderate dorsal foot soft tissue swelling. LEFT FOOT: There is moderate dorsal midfoot soft tissue swelling. There is a nondisplaced fracture proximal segment proximal phalanx 1st digit. No other fractures seen. There is diffuse osteopenia. The ankle mortise and subtalar joints are normal. XR/XR foot RT 2V IMPRESSION: Nondisplaced fracture proximal end proximal phalanx 1st digit left foot. There is diffuse osteopenia of the entire foot with moderate dorsal foot soft tissue swelling. There is moderate right dorsal midfoot soft tissue swelling but no visible fracture or dislocation. There is diffuse osteopenia. There is degenerative spurring 1st metatarsophalangeal joint. Critical Care Time Critical Care Time Critical Care Time: Yes Total Critical Care Time: 60 Attestation: I personally attest to this time spent taking care of the patient Discharge Plan Discharge Clinical Impression: Cellulitis, Wounds, multiple, Foot fracture, left Patient Disposition: Admitted As Inpatient Prescriptions: No Action gabapentin 800 mg tablet 1 tab PO BID PRN (Reason: Pain) RF: 0
[2021-04-01] MEDS: Piperacillin Sodium/Tazobactam 3.375 GM in 0.9 % Sodium Chloride 50 ML IV (16:06)
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
[2021-04-01 16:42] VITALS: BP 171/84; PULSE 59; RESP 18; TEMP 36.6; O2SAT 100
[2021-04-01 17:51] VITALS: BP 174/87; PULSE 62; RESP 15; TEMP 36.1; O2SAT 99
[2021-04-01] MEDS: vancomycin HCL 1,000 MG in 0.9 % Sodium Chloride 250 ML 270 MG IV (18:25)
[2021-04-01] MEDS: 0.9 % Sodium Chloride Flush 3 ML SYRINGE IVFLUSH (18:26)
[2021-04-01 19:48] VITALS: BP 145/67; PULSE 81; RESP 15; TEMP 36.6; O2SAT 98
[2021-04-02] VITALS: BP 157/70; PULSE 68; RESP 18; TEMP 36.1; O2SAT 98
[2021-04-02 00:24] LABS: COVID-19 Test Negative (Negative)
[2021-04-02] MEDS: Morphine Sulfate 4 MG/ML CARTRIDGE 2 MG IVPUSH ×2 (01:23→07:35)
[2021-04-02 03:06] VITALS: BP 181/89; PULSE 63; RESP 16; TEMP 36.4; O2SAT 99
[2021-04-02 04:30] VITALS: BP 178/88
[2021-04-02 07:09] LABS: Hematocrit 45.5 % (42-52); Hemoglobin 14.2 g/dl (14.0-18.0); Mean Corpuscular HGB Conc 31.2 g/dl (31.0-36.0); Mean Corpuscular Hemoglobin 30.4 pg (27.0-33.0); Mean Corpuscular Volume 97.4 fL (80-98); Mean Platelet Volume 10.1 fL (9.4-12.4); Platelet Count 156 X10*3/uL (160-400); Red Blood Count 4.67 X10*6/uL (4.60-5.80); White Blood Count 4.3 X10*3/uL (4.8-10.8)
[2021-04-02] MEDS: vancomycin HCL 1,000 MG in 0.9 % Sodium Chloride 250 ML 270 MG IV (07:36)
[2021-04-02] MEDS: 0.9 % Sodium Chloride Flush 3 ML SYRINGE IVFLUSH (07:37)
[2021-04-02 07:39] LABS: Anion Gap 13 (12-20); Blood Urea Nitrogen 12 mg/dL (9-16); Calcium 8.9 mg/dL (8.4-10.2); Carbon Dioxide 24 mmol/L (22-29); Chloride 107 mmol/L (96-108); Creatinine Clr Calc Pharmacy 113.9; Estimated Glomerular Filt Rate > 60; Glucose Random 85 mg/dL (60-115); Potassium 4.5 mmol/L (3.3-5.1); Sodium 139 mmol/L (135-145)
[2021-04-02 08:00] VITALS: BP 140/80; PULSE 100; RESP 18; TEMP 36.2; O2SAT 98
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
--- NOTE | 2021-04-02 10:56 | PM.CNGS ---
History of Present Illness Consult details Consult date: 04/02/21 Reason for consult: wound care Requesting physician: Gregorio Munoz Narrative: 75 year old male paraplegic with wounds on his legs/feet - followed by his [facility] team but one looked worse on his dorsal foot yesterday - red etc and ? draining so he was sent to the ER - dx with cellulitis and admitted. pt has no feeling on his feet and cannot move below the chest/waist area. has had other wounds healing with scabs. Review of Systems Review of Systems: Constitutional: Denies fever, denies Chills Eyes: denies blurry vision ENT: denies sore throat CVS: denies chest pain Respiratory: Denies dyspnea GI: no abdominal pain : chornic clark MSK: denies neck pain Skin: multiple wounds on lle Neuro: paraplegia Psych: denies suicidal ideation Endocrine: denies heat/cold intoleratnce Hematologic: denies easy bleeding Allergy: denies hives Yes all other systems are reviewed and are negative [facility] Past Medical History Medical History Chronic UTI (urinary tract infection) Clark catheter in place Paraplegia Spinal cord injury Functional capacity: independent ambulation Family History Family history: reviewed and not pertinent Social History Social History Household Members: None Housing: House Do you presently have visiting nurse or other home services: Yes Alcohol intake: never Patient Tobacco Use Status: Never used Tobacco Use of substances other than those prescribed or required for medical reasons: No Currently Displaying Signs/Symptoms of Drug Intoxication Withdrawal: No Have you been hit, kicked, punched, or otherwise hurt by someone within the past year? If so, by whom?: No Do you feel safe in your current relationship?: No Current Relationship Is there a partner from a previous relationship who is making you feel unsafe now?: No Are you made to feel afraid or neglected: No Advance Directives: Yes (unknown date) Advance Directives Information Provided: Yes (unknown date) Advance Directives on File: No Advance Directives Date on File: 04/01/21 Do you have thoughts of harming others: None Do you have a plan to hurt others: No Plan Recently lost weight without trying: No Eating poorly because of decreased appetite: No Nutrition Risks: No Nutritional Risk Poor oral hygiene: No service: Yes Current occupational status: disabled Meds Allergies Allergy/AdvReac Type Severity Reaction Status Date / Time No Known Allergies Allergy Verified 08/14/20 23:40 [No Known Allergies*] Active Medications: Current Medications Generic Name Dose Route Start Last Admin Trade Name Freq PRN Reason Stop Dose Admin Acetaminophen 650 mg 04/02/21 10:02 Acetaminophen 325 Mg Tablet PO Q6H PRN pain Enoxaparin Sodium 40 mg 04/01/21 18:02 04/01/21 18:38 Enoxaparin Sodium 40 Mg/0.4 Ml Syringe SUBCUT Not Given Q24H FRANC Gabapentin 800 mg 04/01/21 18:02 Gabapentin 400 Mg Capsule PO BID PRN Pain Vancomycin HCl 1,000 mg/ 270 mls @ 270 mls/hr 04/01/21 19:00 04/02/21 09:09 Sodium Chloride IV Infused Q12H FRANC Infusion Morphine Sulfate 2 mg 04/01/21 18:02 04/02/21 07:35 Morphine Sulfate 4 Mg/Ml Cartridge IVPUSH 2 mg Q4H PRN Administration Pain, Severe (Pain Scale 7-10) Pharmacy Consult 1 each 04/01/21 18:02 Consult Rx Vancomycin Dosing MISCELLANE DAILY PRN Consult order Sodium Chloride 3 ml 04/02/21 00:00 04/02/21 07:37 0.9 % Sodium Chloride Flush 3 Ml Syringe IVFLUSH 3 ml QSHIFT FRANC Administration Home Medications Medication Instructions Recorded Confirmed Last Taken Type gabapentin 1 tab PO BID PRN 04/01/21 04/01/21 Unknown History Physical Exam Vital Signs: Vital Signs: Last Vital Signs Temp 97.2 F 04/02/21 08:00 Pulse 100 04/02/21 08:00 Resp 18 04/02/21 08:00 BP 140/80 H 04/02/21 08:00 Pulse Ox 98 04/02/21 08:00 Body Mass Index 26.5 Skin: Other: pt unable to move his feet- bilateral lower extremity baseine swelling, no putting edema, the left foot looks a little thickened at willam ankle consistent with bone restructuring. dried wounds on dorsum of foot and medial foot - no active cellulits obvious at this time. no palpable pulses but foot seems perfused. the toes also have random dry scabs. no sensation or movement lower legs. Results Labs Result diagrams: 04/02/21 06:08 04/02/21 06:08 Labs: Abnormal lab results 04/01/21 04/01/21 04/01/21 Range/Units 13:38 13:38 13:38 WBC 4.0 L (4.8-10.8) X10*3/uL MCV 98.3 H (80-98) fL Plt Count (160-400) X10*3/uL Neut % (Auto) 73.5 H (45-73) % Lymph % (Auto) 16.5 L (20-40) % Lymph # (Auto) 0.7 L (1.2-4.9) X10*3/uL Carbon Dioxide 31 H (22-29) mmol/L Alkaline Phosphatase 121 H (39-117) U/L Ur Leukocyte Esterase 3+ H (NEG) Urine WBC 5-9 H (0-4) /HPF 04/02/21 Range/Units 06:08 WBC 4.3 L (4.8-10.8) X10*3/uL MCV (80-98) fL Plt Count 156 L (160-400) X10*3/uL Neut % (Auto) (45-73) % Lymph % (Auto) (20-40) % Lymph # (Auto) (1.2-4.9) X10*3/uL Carbon Dioxide (22-29) mmol/L Alkaline Phosphatase (39-117) U/L Ur Leukocyte Esterase (NEG) Urine WBC (0-4) /HPF Short CBC 04/01/21 04/02/21 Range/Units 13:38 06:08 WBC 4.0 L 4.3 L (4.8-10.8) X10*3/uL Hgb 16.2 14.2 (14.0-18.0) g/dl Hct 51.2 45.5 (42-52) % Plt Count 182 156 L (160-400) X10*3/uL BMP 04/01/21 04/02/21 13:38 06:08 Sodium 142 139 Potassium 5.1 4.5 Chloride 103 107 Carbon Dioxide 31 H 24 BUN 16 12 Creatinine 0.72 0.68 Calcium 9.9 D 8.9 D Liver Function 04/01/21 Range/Units 13:38 Total Bilirubin 0.5 (0.0-1.0) mg/dL AST 28 (5-37) U/L ALT 14 (0-40) U/L Alkaline Phosphatase 121 H (39-117) U/L Albumin 4.1 (3.5-5.0) g/dL Urine 04/01/21 Range/Units 13:38 Urine Color YELLOW Urine Appearance HAZY Urine pH 7.5 (5.0-8.0) Ur Specific [place] 1.010 (1.005-1.025) Urine Protein NEG (NEG-TRACE) MG/DL Urine Glucose (UA) NEG (NEG) MG/DL All other labs normal. Assessment and Plan (1) Cellulitis: Status: Acute (2) Wounds, multiple: Status: Acute 75 yo male with paraplegia - not moving lower legs with wounds on his feet and newer one on left dorsum - looks dry today and cellulitis seems to have improved. plan - to complete a 7 day course of antibiotics as an outpt, betadine paint to the wounds on foot and tubi metallurgist process compression to legs bilaterally. can follow up with us as an outpt in wound care office. Procedures Date of Service Date of Service: 04/02/21
[2021-04-02 11:23] VITALS: BP 124/69; PULSE 102; RESP 18; TEMP 35.9; O2SAT 98
--- NOTE | 2021-04-02 12:15 | P.F2F_ITS ---
Service Date Service Date: 04/02/21 Reasons for Services Reason for longterm: wound care (betadine dressings) and teach disease management Homebound: Leaving the home is medically contraindicated at this time without the asist of a device and/or another person due th the listed conditions above and below. Certification: Based on the above findings, I certify that this patient is con fined to the home and needs intermittent longterm care, physical therapy and/or speech therapy, or continues to need occupational therapy. The patient is under my care, and I have initiated the establishment of the plan of care. The patient will be followed by a physician who will periodically review the plan of care.
--- NOTE | 2021-04-02 12:15 | PM.DS ---
DS: Providers Provider Date of Service: 04/02/21 Date of admission: 04/01/21 16:39 Primary care physician: Unknown Physician Consults: 04/01/21 18:02 Consult to General Surgery Routine Consulting Provider: Katia Marroquin Reason for consultation: non healing wounds DS: Diagnosis Discharge Diagnosis (1) Cellulitis: Status: Acute (2) Wounds, multiple: Status: Acute DS: Medications Discharge Medications Home Medications: Home Medications Medication Instructions Recorded Confirmed gabapentin 1 tab PO BID PRN 04/01/21 04/01/21 Previous Rx's Medication Instructions Recorded doxycycline hyclate 100 mg PO BID #14 cap 04/02/21 povidone-iodine [Betadine] 1 appl TOPICAL DAILY #236 ml 04/02/21 DS: Summary Hospital Course Hospital Course: patient was admitted for non healing wounds associated with celulitis, he was given vanco with improvement of cellulitis. he was seen by surgery who recommended oral antibiotics, betadine dressings, and wound care follow up. Time Spent with Patient Time attestation: Total time spent providing and/or coordinating discharge services: Discharge coordination time: Greater than 30 minutes Quality: Stroke Does the patient have a stroke diagnosis?: No Physical Exam Vital Signs: Vital Signs: Last Vital Signs Temp 96.7 F L 04/02/21 11:23 Pulse 102 H 04/02/21 11:23 Resp 18 04/02/21 11:23 BP 124/69 04/02/21 11:23 Pulse Ox 98 04/02/21 11:23 Body Mass Index 26.5 General: AO X 3, no acute distress Resp: CTA bilateral CVS: S1,S2,RRR GI: soft, non tender, non distended Neuro: paraplegia Psych: appropriate affect skin: bilateral lymphedema, LLE wounds as pictured previously DS: Data Data Completed and Pending Labs on day of discharge: Laboratory Results - last 24 hr 04/01/21 04/01/21 04/01/21 13:38 13:38 13:38 WBC 4.0 L RBC 5.21 Hgb 16.2 Hct 51.2 MCV 98.3 H MCH 31.1 MCHC 31.6 RDW 13.2 Plt Count 182 MPV 9.8 Immature Gran % (Auto) 0.3 Neut % (Auto) 73.5 H Lymph % (Auto) 16.5 L [place] % (Auto) 7.6 Eos % (Auto) 1.8 Baso % (Auto) 0.3 Lymph # (Auto) 0.7 L [place] # (Auto) 0.3 Eos # (Auto) 0.1 Baso # (Auto) 0.0 Abs Immat Gran (auto) 0.01 Absolute Neuts (auto) 2.9 Absolute Nucleated RBC 0.000 Nucleated RBC % (auto) 0.0 PT 11.2 INR 0.9 Sodium 142 Potassium 5.1 Chloride 103 Carbon Dioxide 31 H Anion Gap 13 BUN 16 Creatinine 0.72 Estim Creat Clear Calc 107.5 Estimated GFR > 60 Random Glucose 108 Lactic Acid Calcium 9.9 D Magnesium 2.3 Total Bilirubin 0.5 AST 28 ALT 14 Alkaline Phosphatase 121 H B-Natriuretic Peptide Total Protein 7.4 Albumin 4.1 Urine Color Urine Appearance Urine pH Ur Specific [place] Urine Protein Urine Glucose (UA) Urine Ketones Urine Blood Urine Nitrite Ur Leukocyte Esterase Urine RBC Urine WBC Urine WBC Clumps Ur Squamous Epith Cells Urine Bacteria COVID-19 (JOSE) COVID-[employer] Clin Com 04/01/21 04/01/21 04/01/21 13:38 13:38 13:38 WBC RBC Hgb Hct MCV MCH MCHC RDW Plt Count MPV Immature Gran % (Auto) Neut % (Auto) Lymph % (Auto) [place] % (Auto) Eos % (Auto) Baso % (Auto) Lymph # (Auto) [place] # (Auto) Eos # (Auto) Baso # (Auto) Abs Immat Gran (auto) Absolute Neuts (auto) Absolute Nucleated RBC Nucleated RBC % (auto) PT INR Sodium Potassium Chloride Carbon Dioxide Anion Gap BUN Creatinine Estim Creat Clear Calc Estimated GFR Random Glucose Lactic Acid 2.0 Calcium Magnesium Total Bilirubin AST ALT Alkaline Phosphatase B-Natriuretic Peptide 82 Total Protein Albumin Urine Color Urine Appearance Urine pH Ur Specific [place] Urine Protein Urine Glucose (UA) Urine Ketones Urine Blood Urine Nitrite Ur Leukocyte Esterase Urine RBC Urine WBC Urine WBC Clumps Ur Squamous Epith Cells Urine Bacteria COVID-19 (JOSE) Negative COVIDThe [employer]wick Project Com See Note 04/01/21 04/02/21 04/02/21 13:38 06:08 06:08 WBC 4.3 L RBC 4.67 Hgb 14.2 Hct 45.5 MCV 97.4 MCH 30.4 MCHC 31.2 RDW 13.0 Plt Count 156 L MPV 10.1 Immature Gran % (Auto) Neut % (Auto) Lymph % (Auto) [place] % (Auto) Eos % (Auto) Baso % (Auto) Lymph # (Auto) [place] # (Auto) Eos # (Auto) Baso # (Auto) Abs Immat Gran (auto) Absolute Neuts (auto) Absolute Nucleated RBC 0.000 Nucleated RBC % (auto) 0.0 PT INR Sodium 139 Potassium 4.5 Chloride 107 Carbon Dioxide 24 Anion Gap 13 BUN 12 Creatinine 0.68 Estim Creat Clear Calc 113.9 Estimated GFR > 60 Random Glucose 85 Lactic Acid Calcium 8.9 D Magnesium Total Bilirubin AST ALT Alkaline Phosphatase B-Natriuretic Peptide Total Protein Albumin Urine Color YELLOW Urine Appearance HAZY Urine pH 7.5 Ur Specific [place] 1.010 Urine Protein NEG Urine Glucose (UA) NEG Urine Ketones NEG Urine Blood NEG Urine Nitrite NEG Ur Leukocyte Esterase 3+ H Urine RBC 0-2 Urine WBC 5-9 H Urine WBC Clumps NOTED Ur Squamous Epith Cells NONE Urine Bacteria 2+ COVID-19 (JOSE) COVID-19 Clin [facility] Discharge Plan Discharge Patient Disposition: Home Health Service Discharge Diagnosis: cellulitis Referrals: Katia Marroquin MD [Physician] - 1 Week Physician,Unknown [Primary Care Provider] - 1 Week Discharge Medications: New doxycycline hyclate 100 mg capsule 100 mg PO BID Qty: 14 RF: 0 povidone-iodine [Betadine] 10 % solution 1 appl topical DAILY Qty: 236 RF: 0 Continued gabapentin 800 mg tablet 1 tab PO BID PRN (Reason: Pain) RF: 0 Discharge Orders: Discharge Order (Routine); Ordered 04/02/21 Ordered By: Gregorio Munoz Diet: advance to usual diet Activity on Discharge: As tolerated Stand Alone Forms: Patient Portal Discharge page Care Plan Goals: recovery Health Concerns: wounds Plan of Treatment: betadine dressings, doxycyline, wound care follow up Assessment: see above
--- NOTE | 2021-04-02 13:45 | MHC.CM.PN ---
NURSE SINK CUTTER NOTE DISCHARGE PLAN -PATIENT WILL BE DISCHARGED HOME TODAY AFTER BEING EVALUATED BY WOUND CARE SURGEON [facility] TO FOLLOW NURSING VISITS QD AND RESUMPTION OF HIS HOME HIS HOME HEALTH AIDE HOURS T/C CALL TO HIS DTR LUCAS BENTON [phone] SHE WILL AUTISM TUTOR HIS NEW PRESCRIPTION AT THE PHARMACY [facility]SP[facility]TT[facility]
--- NOTE | 2021-04-02 14:30 | MHC.INPTTRAN ---
jamie lower leg and pedal edema. Has several unstageable areas on left foot. Betadine applied. right foot toes has unstageable on great toe Has paraplegia OOB with susan lift or slider. Has chronic F/C. Will cont with po A/B therapy. Brandon diet, VSS
== END 2021-04-02 15:55 | disposition home health service (06) | DRG 603 ==
LOC: HO.ED 16:27 → HO.EDOVER 16:56 → HO.S3 16:59
PROVIDERS: Physician Assistant Medical; Admitting Provider Internal Medicine; Emergency Provider Emergency Medicine; Visit Provider Internal Medicine
DX: L03.116 Cellulitis of left lower limb (principal); G82.20 Paraplegia, unspecified; L03.115 Cellulitis of right lower limb; G50.0 Trigeminal neuralgia; T14.8XXS Other injury of unspecified body region, sequela; Z87.440 Personal history of urinary (tract) infections; Z96.0 Presence of urogenital implants; Z20.822 Contact with and (suspected) exposure to COVID-19; Z79.899 Other long term (current) drug therapy
CPT/HCPCS: 36415; 73620; 80048; 80053; 81001; 81003; 83605; 83735; 83880; 85025; 85027; 85610; 87040; 87086; 87635; 99221; 99284; J2270; J2543; J3370

== ENCOUNTER 2021-06-04 14:48 | Emergency (ER) | payer MEDICARE, SELFPAY ==
--- NOTE | ~2021-06-04 | US_ITS ---
EXAMINATION: LEFT LOWER EXTREMITY DEEP VENOUS ULTRASOUND CLINICAL INFORMATION: Swollen left ankle. COMPARISON: None. TECHNIQUE: Duplex Doppler imaging with compression maneuvers were performed of the left lower extremity deep venous system. Today's examination is mildly limited secondary to edema, particularly calf evaluation. FINDINGS: The visualized common femoral, femoral and popliteal veins demonstrate normal compressibility and color flow without evidence of venous thrombosis. Visualized portions of the calf veins demonstrate normal color fill-in suggesting patency. There is no evidence of a Kimbrough's cyst. US/US venous duplex LE LT IMPRESSION: No evidence of deep venous thrombosis involving the left lower extremity.
[2021-06-04 14:55] VITALS: BP 177/88; PULSE 57; RESP 20; TEMP 36.5; O2SAT 100; BMI 24.4
[2021-06-04 16:05] VITALS: BP 167/71; PULSE 49; RESP 16; O2SAT 99
[2021-06-04 16:18] LABS: MANUAL DIFF FLAG NO
[2021-06-04] MEDS: Ketorolac Tromethamine 15 MG/ML VIAL IVPUSH (16:19)
[2021-06-04] MEDS: 0.9 % Sodium Chloride 1,000 ML 999 ML IV (16:19)
[2021-06-04 16:21] LABS: Basophils Percent Auto 0.3 % (0-2); Eosinophils Absolute Auto 0.1 X10*3/uL (0.0-0.4); Eosinophils Percent Auto 3.2 % (0-4); Hematocrit 47.8 % (42-52); Hemoglobin 15.1 g/dl (14.0-18.0); Imm Gran Abs Auto 0.01 X10*3/uL (0.00-0.03); Imm Gran Pct Auto 0.3 % (0.0-0.4); Lymphocytes Absolute Auto 0.7 X10*3/uL (1.2-4.9); Lymphocytes Percent Auto 18.5 % (20-40); Mean Corpuscular HGB Conc 31.6 g/dl (31.0-36.0); Mean Corpuscular Hemoglobin 30.8 pg (27.0-33.0); Mean Corpuscular Volume 97.6 fL (80-98); Mean Platelet Volume 9.5 fL (9.4-12.4); Monocytes Absolute Auto 0.3 X10*3/uL (0.1-1.2); Monocytes Percent Auto 8.6 % (2-11); Neutrophils Absolute Auto 2.6 X10*3/uL (2.0-8.3); Neutrophils Percent Auto 69.1 % (45-73); Platelet Count 115 X10*3/uL (160-400); Red Cell Distribution Width 12.6 % (11.0-16.0); White Blood Count 3.7 X10*3/uL (4.8-10.8)
[2021-06-04 16:35] LABS: COVID-19 Test Negative (Negative); IDNOW Serial# 9DD0AD1C
[2021-06-04 16:50] LABS: Alanine Aminotransferase 13 U/L (0-40); Alkaline Phosphatase 116 U/L (39-117); Anion Gap 12 (12-20); Aspartate Amino Transferase 18 U/L (5-37); Bilirubin Total 0.5 mg/dL (0.0-1.0); Blood Urea Nitrogen 12 mg/dL (9-16); Calcium 9.5 mg/dL (8.4-10.2); Carbon Dioxide 30 mmol/L (22-29); Chloride 105 mmol/L (96-108); Creatinine Clr Calc Pharmacy 103.3; Estimated Glomerular Filt Rate > 60; Glucose Random 91 mg/dL (60-115); Potassium 4.6 mmol/L (3.3-5.1); Sodium 142 mmol/L (135-145); Total Protein 6.7 g/dL (6.5-8.0)
[2021-06-04 17:00] LABS: Erythrocyte Sedimentation Rate 6 MM/HR (0-15)
--- NOTE | 2021-06-04 17:08 | ED_ITS ---
HPI - General Adult General Chief complaint: General Medical Stated complaint: right sided face and ear pain Time Seen by Provider: 06/04/21 15:16 Source: patient Mode of arrival: EMS Limitations: physical limitation History of Present Illness HPI narrative: 75-year-old male with a history of spinal cord injury resulting paraplegia, chronic UTI with Beth catheter, chronic lower extremity lymphedema, and trigeminal neuralgia presents with right-sided facial pain that started at 6:00 p.m. last night. The pain is intermittent, and is like electrical shocks. It is worse when he bends his head forward, talks, moves his jaw, or swallows. States the pain is in his upper right sinus and radiates to his right ear. The pain is severe when it happens, and feels like phone is hitting him with a sledgehammer. He has history of similar pain, and states when he sleeps on the right side his face in the past will get this pain. Patient cannot eat or drink due to this pain. Patient has chronic foot swelling and lymphedema in his lower extremities, reports his left ankle is more swollen than usual. Onset (ago): day(s) (1) Location: face Radiation: non-radiation Severity: severe Severity scale (1-10): 10 Quality: stabbing Pain Consistency: intermittent Relieving factors: rest Exacerbating factors: eating and movement Associated symptoms: denies other symptoms Treatments prior to arrival: none Related Data Home Medications Medication Instructions Recorded Confirmed gabapentin 800 mg tablet 1 tab PO BID PRN 04/01/21 04/01/21 Previous Rx's Medication Instructions Recorded doxycycline hyclate 100 mg capsule 100 mg PO BID #14 cap 04/02/21 povidone-iodine 10 % topical 1 appl TOPICAL DAILY #236 ml 04/02/21 solution (Betadine) carbamazepine 100 mg 100 mg PO BID 7 Days #14 cap 06/04/21 capsule,extended release [id number] ketorolac 10 mg tablet 10 mg PO Q6H 5 Days #20 tab 06/04/21 Allergies Allergy/AdvReac Type Severity Reaction Status Date / Time No Known Allergies Allergy Verified 08/14/20 23:40 [No Known Allergies*] Review of Systems Constitutional: Constitutional: Denies body ache(s), Denies chills, Denies fever(s) and Denies headache(s) Eyes: Eyes: Denies blurry vision, Denies diplopia and Denies eye pain ENT: Denies dizziness, Reports facial pain, Denies headache(s), Denies mouth pain and Denies neck pain Cardiovascular: Cardiovascular: Denies chest pain, Reports leg edema and Denies dyspnea Respiratory: Respiratory: Denies chest congestion, Denies cough and Denies dyspnea Gastrointestinal: Gastrointestinal: Denies abdominal pain, Denies diarrhea, Denies nausea and Denies vomiting Genitourinary: Comments: Beth cath in place Musculoskeletal: Musculoskeletal: Denies neck pain Comments: Paraplegia LE Integumentary/Breasts: Skin/Breast: Denies rash and Reports skin swelling Neurologic: Denies dizziness and Denies headache(s) [facility] Past Medical History Medical History Chronic UTI (urinary tract infection) Beth catheter in place Paraplegia Spinal cord injury Social History Social History Household Members: None Housing: House Do you presently have visiting nurse or other home services: Yes Alcohol intake: never Patient Tobacco Use Status: Never used Tobacco Use of substances other than those prescribed or required for medical reasons: No Advance Directives: Yes Advance Directives on File: Yes Advance Directives Date on File: 04/01/21 service: Yes Current occupational status: disabled Physical Exam Vital Signs: Vital Signs: Last Vital Signs Temp 97.7 F 06/04/21 14:55 Pulse 49 L 06/04/21 16:05 Resp 16 06/04/21 19:31 BP 167/71 H 06/04/21 16:05 Pulse Ox 99 06/04/21 16:05 Body Mass Index 24.4 Const: General: alert, awake and ill appearing chronically Nutritional Appearance: average body habitus Orientation/consciousness: patient oriented x3 Limitations: other limitations ([place] of hearing, paraplegic) HENMT: Other: TM dull on right, no bulging, no erythema, no purulence effusion Cannot reproduce facial pain by palpating maxillary sinuses Patient not tender over congregational Head: Yes normal to inspection, Yes normocephalic and Yes atraumatic Ears: external ears normal, mastoids normal and other ([place]) Face and sinus: Yes sinuses nontender, Yes face symmetric, No erythema, No edema and Yes dry mucous membranes Mouth: oropharynx normal and mucous membranes dry Throat: Yes posterior oropharynx normal Eyes: Pupils: Equal, round and reactive pupils present EOM: EOMs intact bilaterally Neck: Neck: Yes full ROM and Yes trachea midline Chest: Chest palpation & inspection: normal inspection of the chest Resp: Effort & Inspection: normal respiratory effort and able to speak in complete sentences Auscultation: clear to auscultation bilaterally, no crackles, no rales, no rhonchi and no wheezes Cardio: Rate: regular rate Rhythm: regular rhythm Heart sounds: S1 normal heart sound present and S2 normal heart sound present GI: Inspection: Yes normal to inspection Palpation (GI): Soft to palpation, nontender and no guarding Skin: Other: Hemosiderin deposits bilaterally and feet, feet are swollen and ankles are swollen a Neuro: General: patient oriented x3 Cranial nerves: Yes Equal, round and reactive pupils present Extrem: Other: Bilaterally swollen ankles and feet, patient has a history of l ymph edema, left ankle more swollen than right. Course Course Course Narrative: 75-year-old male who is paraplegic presents for right-sided facial pain. Patient has a history of trigeminal neuralgia. Patient states shooting electrical shock-like pain that is severe with moving his jaw. More swollen than normal left lower extremity, Ultrasound of left lower extremity shows no DVT. Bladder scan shows 44 cc. Patient had concern he was not emptying his bladder, but he is. White blood count 3.7, platelets 115, patient had a white blood cell count of 4.0 in March as well as platelets of 156 in March. ESR is 6. Unlikely temporal arteritis with this ESR level. Most likely trigeminal neuralgia. Patient reporting some resolution of pain with ketorolac Will trial p.o. challenge, see if patient can tolerate eating and drinking, if he can will send home with prescription for carbamazepine for trigeminal neuralgia and follow-up with PCP Reevaluation(s) Reevaluation #1: On re-examine, patient states his pain is better, he is able to eat and drink . Counseled patient to fill his prescription for carbamazepine, and to call PCP for follow-up appointment Reevaluation #2: Nurse stated patient has more pain. Gave gabapentin. Attempted to admit. Hospitalist denied admission. Will add Ketorolac as outpatient prescription, as that worked for a short time here. Reevaluation #3: Patient is not comfortable going home. He feels his pain is too severe and he cannot manage at home. Will contact bilingual social worker, patient will spend the night here tonight. Signed pt out to Dr Moses Medical Decision Making Lab Data Result diagrams: 06/04/21 16:14 06/04/21 16:14 Labs: Lab Results 06/04/21 06/04/21 06/04/21 Range/Units 16:09 16:14 16:14 WBC 3.7 L (4.8-10.8) X10*3/uL RBC 4.90 (4.60-5.80) X10*6/uL Hgb 15.1 (14.0-18.0) g/dl Hct 47.8 (42-52) % MCV 97.6 (80-98) fL MCH 30.8 (27.0-33.0) pg MCHC 31.6 (31.0-36.0) g/dl RDW 12.6 (11.0-16.0) % Plt Count 115 L D (160-400) X10*3/uL MPV 9.5 (9.4-12.4) fL Immature Gran % (Auto) 0.3 (0.0-0.4) % Neut % (Auto) 69.1 (45-73) % Lymph % (Auto) 18.5 L (20-40) % [place] % (Auto) 8.6 (2-11) % Eos % (Auto) 3.2 (0-4) % Baso % (Auto) 0.3 (0-2) % Lymph # (Auto) 0.7 L (1.2-4.9) X10*3/uL [place] # (Auto) 0.3 (0.1-1.2) X10*3/uL Eos # (Auto) 0.1 (0.0-0.4) X10*3/uL Baso # (Auto) 0.0 (0.0-0.2) X10*3/uL Abs Immat Gran (auto) 0.01 (0.00-0.03) X10*3/uL Absolute Neuts (auto) 2.6 (2.0-8.3) X10*3/uL Absolute Nucleated RBC 0.000 (0.0-0.012) X10*3/uL Nucleated RBC % (auto) 0.0 (0.0-0.2) /100WBC ESR 6 (0-15) MM/HR Sodium (135-145) mmol/L Potassium (3.3-5.1) mmol/L Chloride (96-108) mmol/L Carbon Dioxide (22-29) mmol/L Anion Gap (12-20) BUN (9-16) mg/dL Creatinine (0.5-1.4) mg/dL Estim Creat Clear Calc Estimated GFR Random Glucose (60-115) mg/dL Calcium (8.4-10.2) mg/dL Total Bilirubin (0.0-1.0) mg/dL AST (5-37) U/L ALT (0-40) U/L Alkaline Phosphatase (39-117) U/L Total Protein (6.5-8.0) g/dL Albumin (3.5-5.0) g/dL COVID-19 (JOSE) Negative (Negative) COVID-19 Clin Com See Note 06/04/21 Range/Units 16:14 WBC (4.8-10.8) X10*3/uL RBC (4.60-5.80) X10*6/uL Hgb (14.0-18.0) g/dl Hct (42-52) % MCV (80-98) fL MCH (27.0-33.0) pg MCHC (31.0-36.0) g/dl RDW (11.0-16.0) % Plt Count (160-400) X10*3/uL MPV (9.4-12.4) fL Immature Gran % (Auto) (0.0-0.4) % Neut % (Auto) (45-73) % Lymph % (Auto) (20-40) % [place] % (Auto) (2-11) % Eos % (Auto) (0-4) % Baso % (Auto) (0-2) % Lymph # (Auto) (1.2-4.9) X10*3/uL [place] # (Auto) (0.1-1.2) X10*3/uL Eos # (Auto) (0.0-0.4) X10*3/uL Baso # (Auto) (0.0-0.2) X10*3/uL Abs Immat Gran (auto) (0.00-0.03) X10*3/uL Absolute Neuts (auto) (2.0-8.3) X10*3/uL Absolute Nucleated RBC (0.0-0.012) X10*3/uL Nucleated RBC % (auto) (0.0-0.2) /100WBC ESR (0-15) MM/HR Sodium 142 (135-145) mmol/L Potassium 4.6 (3.3-5.1) mmol/L Chloride 105 (96-108) mmol/L Carbon Dioxide 30 H (22-29) mmol/L Anion Gap 12 (12-20) BUN 12 (9-16) mg/dL Creatinine 0.77 (0.5-1.4) mg/dL Estim Creat Clear Calc 103.3 Estimated GFR > 60 Random Glucose 91 (60-115) mg/dL Calcium 9.5 D (8.4-10.2) mg/dL Total Bilirubin 0.5 (0.0-1.0) mg/dL AST 18 (5-37) U/L ALT 13 (0-40) U/L Alkaline Phosphatase 116 (39-117) U/L Total Protein 6.7 (6.5-8.0) g/dL Albumin 4.0 (3.5-5.0) g/dL COVID-19 (JOSE) (Negative) COVID-19 Clin Com Discharge Plan Discharge Clinical Impression: Trigeminal neuralgia Patient Disposition: Home, Self-Care Instructions: Trigeminal Neuralgia (ED) Additional Instructions: Please fill your prescription for carbamazepine, as well as ketorolac. KEtorolac helped your discomfort.today, please take as prescribed. Carbamazepine, this is a drug that can treat trigeminal neuralgia. I have given you a low dose of Carbamazepine for only 7 days. I want you to speak with your primary care provider within the next week, they may want to increase your dose Please return to emergency room if you are unable to eat or drink due to pain, or if you have any other new or concerning symptoms. Prescriptions: New carbamazepine 100 mg capsule, ER multiphase 12 hr 100 mg PO BID 7 Days Qty: 14 RF: 0 ketorolac 10 mg tablet 10 mg PO Q6H 5 Days Qty: 20 RF: 0 No Action gabapentin 800 mg tablet 1 tab PO BID PRN (Reason: Pain) RF: 0 doxycycline hyclate 100 mg capsule 100 mg PO BID Qty: 14 RF: 0 povidone-iodine [Betadine] 10 % solution 1 appl topical DAILY Qty: 236 RF: 0
[2021-06-04] MEDS: carBAMazepine 100 MG TAB.CHEW PO (17:39)
[2021-06-04] MEDS: Gabapentin 600 MG TABLET PO (19:28)
--- NOTE | 2021-06-04 19:30 | PC.NURSE ---
prior to being discharged pt stated is still having right sided jaw pain when he chews, swallows or turns his head a certain way. pt stated none of the medications given to him so far have seemed to help with his pain. pt described pain as sporadic and coming in random bursts or when chewing, swallowing, turning head. provider notified.
[2021-06-04 19:31] VITALS: RESP 16
[2021-06-04] MEDS: Amoxicillin/Potassium Clav 875 MG TABLET PO (21:40)
[2021-06-04 22:48] VITALS: RESP 16
--- NOTE | 2021-06-05 01:31 | PC.NURSE ---
pt sleeping comfortably in bed at this time in semi fowlers. no facial grimacing or signs of pain/distress noted at this time. respirations even and unlabored. call edmond in reach.
[2021-06-05 01:35] VITALS: RESP 16
[2021-06-05 07:52] VITALS: BP 160/83; PULSE 58; RESP 18; O2SAT 97
--- NOTE | 2021-06-05 07:55 | PC.NURSE ---
pt alert and oriented, skin pwd respiration even and unlabored, pt denies pain and is feeling good and strong to go back home, pt is requesting to go back home, states he has a aid at home coming every day for about one hour. pt ate 100% of his breakfast, this rn emptied the clark and 700cc of darker urine
--- NOTE | 2021-06-05 08:46 | MHC.CM.ED ---
Received case management consult overnight. Patient came to the ER due to facial neuralgia pain. Patient is from home. 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 He has limited use of his arms. He has [employer] and [employer]'s at home and is requesting to return home. [facility] booked. Patient, Jolanta MATTA and Khalida JACKSON aware. Continue to monitor for d/c needs.
== END 2021-06-05 09:44 | disposition home or self-care (01) ==
PROVIDERS: Physician Assistant; Emergency Provider Emergency Medicine
DX: G50.0 Trigeminal neuralgia (principal); M25.472 Effusion, left ankle; Z20.822 Contact with and (suspected) exposure to COVID-19; G82.20 Paraplegia, unspecified; Z96.0 Presence of urogenital implants
CPT/HCPCS: 36415; 80053; 85025; 85652; 87635; 93971; 96361; 96374; 99285; J1885

== ENCOUNTER 2021-06-11 02:35 | Emergency (ER) | payer MEDICARE, SELFPAY ==
--- NOTE | ~2021-06-11 | CT_ITS ---
EXAMINATION: CT FACIAL BONES WITH CONTRAST CLINICAL INFORMATION: Rule out right facial abscess COMPARISON: None TECHNIQUE: Axial images through the face with contrast. Patient received 85 mL Omnipaque 350 intravenous contrast. Sagittal and coronal reconstructions on the technologist workstation were performed. This CT examination was performed using dose optimization techniques as appropriate, variously including the following: *Automated exposure control *Adjustment of mA and/or kV according to patient size (this includes techniques or standardized protocols for targeted exams where dose is matched to indication/reason for exam; i.e. extremities or head) *Use of iterative reconstruction technique DLP: 327 mGy-cm FINDINGS: Bone alignment is normal. No fracture or dislocation is seen. There is a small polyp or cyst in the right maxillary sinus. Paranasal sinuses are otherwise clear. Mastoid air cells and middle ears are clear. The orbits are normal appearing. The naso,aimee-and hypopharynx are normal. The patient is a edentulous. No facial abscess is seen. The salivary glands are normal. There is shotty lymphadenopathy. Visualized intracranial structures are unremarkable. Vascular structures are unremarkable. There are degenerative changes of the cervical spine. CT/CT facial bones w con IMPRESSION: No abscess seen.
--- NOTE | 2021-06-11 02:45 | PC.NURSE ---
PATIENT CAME IN VIA [facility] ,PATIENT WAS SHORT GOODS DRIER TO HOSPITAL ATTIRE ,VITALS WAS TAKEN ,PATIENT HAS RED AREA BETWEEN GROIN RN SEMAJ IS AWARE OF RED AREA ON GROIN .
[2021-06-11 02:49] VITALS: BP 155/77; BP 180/120; PULSE 76; PULSE 90; RESP 18; TEMP 36.4; O2SAT 96; O2SAT 98; BMI 24.3
[2021-06-11 05:09] VITALS: BP 164/75; PULSE 80; RESP 18; O2SAT 97
[2021-06-11 05:27] VITALS: BP 172/76; PULSE 75; RESP 16; O2SAT 96
[2021-06-11 06:00] VITALS: RESP 18
--- NOTE | 2021-06-11 06:07 | ED_ITS ---
HPI - General Adult General Chief complaint: General Medical Stated complaint: facial pain r side Time Seen by Provider: 06/11/21 05:55 Source: patient Mode of arrival: ambulatory Limitations: no limitations History of Present Illness HPI narrative: Patient comes emergency room complaining of right-sided facial pain. Patient states that he has history of trigeminal neuralgia, however he also has been treated multiple times for cellulitis. Patient states that he can usually tell when his pain from trigeminal neuralgia, but this time it feels different patient denies fever chills Related Data Home Medications Medication Instructions Recorded Confirmed gabapentin 800 mg tablet 1 tab PO BID PRN 04/01/21 04/01/21 Previous Rx's Medication Instructions Recorded doxycycline hyclate 100 mg capsule 100 mg PO BID #14 cap 04/02/21 povidone-iodine 10 % topical 1 appl TOPICAL DAILY #236 ml 04/02/21 solution (Betadine) carbamazepine 100 mg 100 mg PO BID 7 Days #14 cap 06/04/21 capsule,extended release [id number] ketorolac 10 mg tablet 10 mg PO Q6H 5 Days #20 tab 06/04/21 oxycodone-acetaminophen 5 mg-325 1 tab PO Q6H PRN #10 tab 06/11/21 mg tablet (Percocet) Allergies Allergy/AdvReac Type Severity Reaction Status Date / Time No Known Allergies Allergy Verified 08/14/20 23:40 [No Known Allergies*] Review of Systems Review of Systems: Constitutional : No Weight loss, No Fever, No Chills, No Night Sweats, No Fatigue, No Malaise ENT/Mouth : No Hearing loss, No Ear Pain, No Nasal Congestion, No Sinus Pain, No Hoarseness, No sore throat, No Rhinorrhea, No Swallowing Difficulty, complaining of right-sided facial pain Eyes: No Eye Pain, No Swelling, No Redness, No Foreign Body, No Discharge, No Vision Changes Cardiovascular : No Chest Pain, No SOB, No Dyspnea on Exertion, No Orthopnea, No Edema, No Palpitations Respiratory : No Cough, No Sputum, No Wheezing, No Smoke Exposure, No Dyspnea Gastrointestinal : No Nausea, No Vomiting, No Diarrhea, No Constipation, No abdominal Pain, No Hematochezia, No Melena Genitourinary : no irregular bleeding, No Dysuria, No Urinary Frequency, No Hematuria, No Urinary Incontinence, No Urgency, No Flank Pain, No Urinary Flow Changes, No Hesitancy Musculoskeletal : No joint pain, No Myalgias, No Joint Swelling Skin : No Skin Lesions, No rash Neuro : No Weakness, No Numbness, No Paresthesias, No Loss of Consciousness, No Dizziness, No Headache Psych : No Anxiety/Panic, No Depression, No SI/HI/AH/VH, No Social Issues, Heme/Lymph: No Bruising, No Bleeding,No Lymphadenopathy Endocrine : No Polyuria, No Polydipsia, No Temperature Intolerance [facility] Past Medical History Medical History Chronic UTI (urinary tract infection) Beth catheter in place Paraplegia Spinal cord injury Social History Social History Household Members: None Housing: House Do you presently have visiting nurse or other home services: Yes Alcohol intake: never Patient Tobacco Use Status: Never used Tobacco Advance Directives: Yes Advance Directives on File: Yes Advance Directives Date on File: 04/01/21 service: Yes Current occupational status: disabled Physical Exam Vital Signs: Vital Signs: Last Vital Signs Temp 97.5 F 06/11/21 02:49 Pulse 75 06/11/21 05:27 Resp 18 06/11/21 06:00 BP 172/76 H 06/11/21 05:27 Pulse Ox 96 06/11/21 05:27 Body Mass Index 24.3 Const: Other: Appearance: Alert. Oriented X3. No acute distress. Eyes: Pupils equal, round and reactive to light. ENT: Pharynx normal. No pain to palpation over right side of the face Neck: Normal inspection. Neck supple. No lymph nodes noted. No crepitus CVS: Normal heart rate and rhythm. Pulses normal. Normal S1 and S2 Respiratory: No respiratory distress. Breath sounds normal. No Wheezing. No rales Abdomen: Soft and nontender. No rigidity. No distention. good BS x4 Skin: Skin warm and dry. Flushed skin in the face, does not seem like cellulitis, Extremities: No lower extremity edema. No lower extremity edema. No Lacerations. No Rash Neuro: Oriented X 3. No motor deficit. No sensory deficit. Moving all extermities. No slurred speech. Course Course Course Narrative: At this time, it seems that patient is having pain from trigeminal neuralgia, patient did not have any abscess in the gums, no teeth, no pain to palpation in the gums or sinuses. Labs and CT scan of facial bones pending. Sign out given to Dr. Darden. Discharge Plan Discharge Clinical Impression: Trigeminal neuralgia Patient Disposition: Home, Self-Care Instructions: Trigeminal Neuralgia (ED) Additional Instructions: Please follow-up with your primary care physician tomorrow. If you have any worsening or new symptoms, please return to the emergency room or call 911 Prescriptions: New oxycodone-acetaminophen [Percocet] 5-325 mg tablet 1 tab PO Q6H PRN (Reason: pain) Qty: 10 RF: 0 No [facility] gabapentin 800 mg tablet 1 tab PO BID PRN (Reason: Pain) RF: 0 doxycycline hyclate 100 mg capsule 100 mg PO BID Qty: 14 RF: 0 povidone-iodine [Betadine] 10 % solution 1 appl topical DAILY Qty: 236 RF: 0 carbamazepine 100 mg capsule, ER multiphase 12 hr 100 mg PO BID 7 Days Qty: 14 RF: 0 ketorolac 10 mg tablet 10 mg PO Q6H 5 Days Qty: 20 RF: 0
[2021-06-11 07:25] LABS: Basophils Percent Auto 0.4 % (0-2); Hemoglobin 14.1 g/dl (14.0-18.0); Mean Corpuscular Hemoglobin 31.5 pg (27.0-33.0); Mean Corpuscular Volume 95.5 fL (80-98)
[2021-06-11 07:26] LABS: Eosinophils Absolute Auto 0.1 X10*3/uL (0.0-0.4); Eosinophils Percent Auto 1.3 % (0-4); Hematocrit 42.8 % (42-52); Lymphocytes Absolute Auto 0.8 X10*3/uL (1.2-4.9); Lymphocytes Percent Auto 15.3 % (20-40); Mean Corpuscular HGB Conc 32.9 g/dl (31.0-36.0); Mean Platelet Volume 10.1 fL (9.4-12.4); Monocytes Absolute Auto 0.5 X10*3/uL (0.1-1.2); Monocytes Percent Auto 9.3 % (2-11); Neutrophils Absolute Auto 3.9 X10*3/uL (2.0-8.3); Neutrophils Percent Auto 73.7 % (45-73); Platelet Count 119 X10*3/uL (160-400); Red Blood Count 4.48 X10*6/uL (4.60-5.80); Red Cell Distribution Width 12.6 % (11.0-16.0); White Blood Count 5.4 X10*3/uL (4.8-10.8)
[2021-06-11 07:27] LABS: MANUAL DIFF FLAG NO
[2021-06-11 07:45] LABS: Anion Gap 13 (12-20); Blood Urea Nitrogen 15 mg/dL (9-16); Calcium 8.9 mg/dL (8.4-10.2); Carbon Dioxide 24 mmol/L (22-29); Chloride 107 mmol/L (96-108); Creatinine Clr Calc Pharmacy 118.7; Estimated Glomerular Filt Rate > 60; Glucose Random 89 mg/dL (60-115); Sodium 140 mmol/L (135-145)
[2021-06-11] MEDS: iohexoL 350 MG/ML 100 ML INFUS..BTL IV (10:08)
[2021-06-11 10:38] VITALS: BP 149/70; PULSE 66; RESP 15; TEMP 36.5; O2SAT 96
--- NOTE | 2021-06-11 12:34 | PC.NURSE ---
pt provided lunch and a drink while awaiting transport home
== END 2021-06-11 13:55 | disposition home or self-care (01) ==
PROVIDERS: Emergency Provider Emergency Medicine
DX: G50.0 Trigeminal neuralgia (principal)
CPT/HCPCS: 36415; 70487; 80048; 85025; 99284; Q9967

== ENCOUNTER 2021-07-05 13:04 | Emergency (ER) | payer MEDICARE, SELFPAY ==
[2021-07-05] VITALS (7 sets, daily range): BP systolic 152–174; BP diastolic 72–89; PULSE 60–63; RESP 18; TEMP 36.4–36.7; O2SAT 97–100; BMI 24.3
--- NOTE | 2021-07-05 14:07 | ED.GENADULT ---
HPI - General Adult General Chief complaint: Dental/Oral Stated complaint: MOUTH PAIN Time Seen by Provider: 07/05/21 13:56 Source: patient and EMS Mode of arrival: EMS Limitations: no limitations History of Present Illness HPI narrative: 75-year-old male with a history of spinal cord injury resulting paraplegia, chronic UTI with Beth catheter, chronic lower extremity lymphedema, and trigeminal neuralgia presents with right-sided facial pain that started last night. Patient also has a h/o of facial cellulitis and took a course of amoxicillin 06/08-06/21 and feels this helped. However, pain returned last evening and is worse with bending his head forward, talking, moving his jaw and swallowing. It shoots like lightening from his right side of his face to his ear to his upper jaw. He tells me it feels different then his trigeminal neuralgia pain. Related Data Home Medications Medication Instructions Recorded Confirmed gabapentin 800 mg tablet 1 tab PO BID PRN 04/01/21 04/01/21 Previous Rx's Medication Instructions Recorded doxycycline hyclate 100 mg capsule 100 mg PO BID #14 cap 04/02/21 povidone-iodine 10 % topical 1 appl TOPICAL DAILY #236 ml 04/02/21 solution (Betadine) carbamazepine 100 mg 100 mg PO BID 7 Days #14 cap 06/04/21 capsule,extended release [id number] ketorolac 10 mg tablet 10 mg PO Q6H 5 Days #20 tab 06/04/21 oxycodone-acetaminophen 5 mg-325 1 tab PO Q6H PRN #10 tab 06/11/21 mg tablet (Percocet) oxycodone 5 mg tablet 5 mg PO Q8H PRN #8 tab 07/05/21 Allergies Allergy/AdvReac Type Severity Reaction Status Date / Time No Known Allergies Allergy Verified 08/14/20 23:40 [No Known Allergies*] Review of Systems Review of Systems: Yes all other systems are reviewed and are negative Constitutional: Constitutional: Reports no additional constitutional complaints, Denies body ache(s), Denies chills, Denies fever(s), Denies headache(s) and Denies weakness Eyes: Eyes: Reports no additional eye complaints and Denies change in vision ENT: Reports system reviewed and no additional complaints, except as documented, Denies dizziness, Reports facial pain, Denies headache(s), Denies nasal congestion, Denies nasal discharge and Denies neck pain Cardiovascular: Cardiovascular: Reports no additional cardiovascular complaints, Denies chest pain, Denies leg edema and Denies dyspnea Respiratory: Respiratory: Reports no additional respiratory complaints, Denies cough and Denies dyspnea Gastrointestinal: Gastrointestinal: Reports no additional gastrointestinal complaints, Denies abdominal pain, Denies diarrhea, Denies nausea and Denies vomiting Genitourinary: Genitourinary: Denies urinary incontinence Musculoskeletal: Musculoskeletal: Reports no additional musculoskeletal complaints, Denies back pain, Denies arthralgias, Denies joint swelling, Denies neck pain, Denies numbness and Denies tingling Integumentary/Breasts: Skin/Breast: Reports system reviewed and no additional complaints, except as docu and Denies rash Neurologic: Reports system reviewed and no additional complaints, except as documented, Denies Abnormal speech present, Denies dizziness, Denies headache(s), Denies numbness, Denies tingling and Denies weakness PMFSH Past Medical History Attestation statement: The following information was validated with the patient. Source: old records reviewed and nursing notes reviewed Medical History Chronic UTI (urinary tract infection) Beth catheter in place Paraplegia Spinal cord injury Social History Social History Household Members: None Housing: House Do you presently have visiting nurse or other home services: Yes Alcohol intake: never Patient Tobacco Use Status: Never used Tobacco Advance Directives: Yes Advance Directives Information Provided: Yes Advance Directives on File: No Advance Directives Date on File: 04/01/21 service: Yes Current occupational status: disabled Physical Exam Vital Signs: Vital Signs: Last Vital Signs Temp 97.6 F 07/05/21 13:18 Pulse 63 07/05/21 15:13 Resp 18 07/05/21 16:04 BP 174/89 H 07/05/21 15:13 Pulse Ox 97 07/05/21 15:13 Body Mass Index 24.3 Const: General: cooperative, healthy appearing, comfortable and no acute distress Orientation/consciousness: patient oriented x3 Limitations: no limitations HENMT: Other: No temporal artery tenderness Head: Yes normal to inspection Ears: hearing grossly normal bilaterally and TM's normal bilaterally General nose exam: Normal external nose present Face and sinus: Yes normal facial exam, Yes sinuses nontender and Yes face symmetric Mouth: Normal oral and palatal mucosa present Throat: Yes posterior oropharynx normal, Yes tonsils normal and Yes uvula midline Eyes: General: appearance normal, both eyes and all related structures Pupils: Equal, round and reactive pupils present Neck: Neck: Yes normal visual inspection, Yes full ROM, Yes no lymphadenopathy and Yes no meningeal signs Chest: Chest palpation & inspection: normal inspection of the chest Resp: Effort & Inspection: normal respiratory effort Auscultation: clear to auscultation bilaterally Cardio: Rate: regular rate Rhythm: regular rhythm Peripheral pulses: Peripheral pulses 2+ throughout GI: Inspection: Yes normal to inspection Palpation (GI): Soft to palpation and nontender Auscultation: normal bowel sounds Back/Spine/Pelvis: Thoracic/Lumbar Spine: thoracic and lumbar spine normal to inspection Skin: General skin exam: no rashes or lesions noted Neuro: General: patient oriented x3, no meningeal signs, no focal motor deficits and normal sensation to monofilament Cranial nerves: Yes Equal, round and reactive pupils present Cognition (Neuro): normal cognition Speech: No Abnormal speech present Gait exam (Neuro): Normal gait present Motor exam (neuro): 5/5 motor strength present throughout Extrem: General: Yes normal to inspection Course Course Course Narrative: ?75-year-old male who is paraplegic presents for right-sided facial pain.? Patient has a history of trigeminal neuralgia.? Patient states shooting electrical shock-like pain that is severe with moving his jaw.? Per patient he also has a history of facial cellulitis and feels that this is cellulitis. Clinically he has no evidence of redness or warmth or swelling over the cheek. His gumline is normal and there is no abrasions in the gum line or open wounds. Do not appreciate any abscess or infection inside the mouth. Of note the patient tells me that he was diagnosed with trigeminal neuralgia and January of this year. He tells me he has had intermittent persistent pain and has seen several specialists and has had 2 CT scans of the face done and MRI all normal. He has trialed carbamazepine with no success. He is currently on gabapentin. He has had oxycodone in the past but does not feel like it really helps. Will get some labs including inflammatory markers to rule out temporal arteritis. Provide analgesia and reassess. Clinically this appears to be a trigeminal neuralgia flare 1505-Labs including inflammatory markers negative. Continued pain despite toradol IM. Will trial IM morphine and re-assess. 175-Overall pain improved although patient tells me he still has intermittent shocks. Lengthy discussion >60 minutes with patient about trigeminal neuralgia and being a lifelong diagnosis. We discussed trialing Tegretol again as this is shown to be helpful but patient tried this once with no success and is not willing to try it again. Therefore I will prescribe a small amount of narcotic and refer him back to his PCP. Offered additional services at home and CM involvement or even placement but patient declined this. Medical Decision Making Medical Records Medical records reviewed: Yes I reviewed the patient's medical records. Lab Data Lab results reviewed: Yes I reviewed the patient's lab results. Result diagrams: 07/05/21 14:08 07/05/21 14:08 Labs: Lab Results 07/05/21 07/05/21 07/05/21 Range/Units 14:08 14:08 14:08 WBC 3.9 L (4.8-10.8) X10*3/uL RBC 5.14 (4.60-5.80) X10*6/uL Hgb 15.8 (14.0-18.0) g/dl Hct 49.3 (42-52) % MCV 95.9 (80-98) fL MCH 30.7 (27.0-33.0) pg MCHC 32.0 (31.0-36.0) g/dl RDW 12.5 (11.0-16.0) % Plt Count 133 L (160-400) X10*3/uL MPV 9.5 (9.4-12.4) fL Immature Gran % (Auto) 0.3 (0.0-0.4) % Neut % (Auto) 73.7 H (45-73) % Lymph % (Auto) 15.8 L (20-40) % Clayton % (Auto) 8.1 (2-11) % Eos % (Auto) 1.8 (0-4) % Baso % (Auto) 0.3 (0-2) % Lymph # (Auto) 0.6 L (1.2-4.9) X10*3/uL Clayton # (Auto) 0.3 (0.1-1.2) X10*3/uL Eos # (Auto) 0.1 (0.0-0.4) X10*3/uL Baso # (Auto) 0.0 (0.0-0.2) X10*3/uL Abs Immat Gran (auto) 0.01 (0.00-0.03) X10*3/uL Absolute Neuts (auto) 2.9 (2.0-8.3) X10*3/uL Absolute Nucleated RBC 0.000 (0.0-0.012) X10*3/uL Nucleated RBC % (auto) 0.0 (0.0-0.2) /100WBC ESR 4 (0-15) MM/HR Sodium 144 (135-145) mmol/L Potassium 4.6 (3.3-5.1) mmol/L Chloride 108 (96-108) mmol/L Carbon Dioxide 27 (22-29) mmol/L Anion Gap 14 (12-20) BUN 11 (9-16) mg/dL Creatinine 0.79 (0.5-1.4) mg/dL Estim Creat Clear Calc 96.5 Estimated GFR > 60 Random Glucose 97 (60-115) mg/dL Calcium 9.5 D (8.4-10.2) mg/dL C-Reactive Protein 0.26 (< or = 0.50) mg/dL Discharge Plan Discharge Clinical Impression: Trigeminal neuralgia Patient Disposition: Home, Self-Care Instructions: Trigeminal Neuralgia (ED) Prescriptions: New oxycodone 5 mg tablet 5 mg PO Q8H PRN (Reason: pain) Qty: 8 RF: 0 No [facility] gabapentin 800 mg tablet 1 tab PO BID PRN (Reason: Pain) RF: 0 doxycycline hyclate 100 mg capsule 100 mg PO BID Qty: 14 RF: 0 povidone-iodine [Betadine] 10 % solution 1 appl topical DAILY Qty: 236 RF: 0 carbamazepine 100 mg capsule, ER multiphase 12 hr 100 mg PO BID 7 Days Qty: 14 RF: 0 ketorolac 10 mg tablet 10 mg PO Q6H 5 Days Qty: 20 RF: 0 oxycodone-acetaminophen [Percocet] 5-325 mg tablet 1 tab PO Q6H PRN (Reason: pain) Qty: 10 RF: 0 Referrals: Phillip Gates MD [Primary Care Provider] - 2 days
[2021-07-05] MEDS: Ketorolac Tromethamine 60 MG/2 ML VIAL IM (14:11)
[2021-07-05 14:12] LABS: MANUAL DIFF FLAG NO
[2021-07-05 14:14] LABS: Basophils Percent Auto 0.3 % (0-2); Eosinophils Absolute Auto 0.1 X10*3/uL (0.0-0.4); Eosinophils Percent Auto 1.8 % (0-4); Hematocrit 49.3 % (42-52); Hemoglobin 15.8 g/dl (14.0-18.0); Imm Gran Abs Auto 0.01 X10*3/uL (0.00-0.03); Imm Gran Pct Auto 0.3 % (0.0-0.4); Lymphocytes Absolute Auto 0.6 X10*3/uL (1.2-4.9); Lymphocytes Percent Auto 15.8 % (20-40); Mean Corpuscular Hemoglobin 30.7 pg (27.0-33.0); Mean Corpuscular Volume 95.9 fL (80-98); Mean Platelet Volume 9.5 fL (9.4-12.4); Monocytes Absolute Auto 0.3 X10*3/uL (0.1-1.2); Monocytes Percent Auto 8.1 % (2-11); Neutrophils Absolute Auto 2.9 X10*3/uL (2.0-8.3); Neutrophils Percent Auto 73.7 % (45-73); Platelet Count 133 X10*3/uL (160-400); Red Blood Count 5.14 X10*6/uL (4.60-5.80); Red Cell Distribution Width 12.5 % (11.0-16.0); White Blood Count 3.9 X10*3/uL (4.8-10.8)
[2021-07-05 14:31] LABS: Anion Gap 14 (12-20); Blood Urea Nitrogen 11 mg/dL (9-16); C Reactive Protein 0.26 mg/dL (< or = 0.50); Calcium 9.5 mg/dL (8.4-10.2); Carbon Dioxide 27 mmol/L (22-29); Chloride 108 mmol/L (96-108); Creatinine Clr Calc Pharmacy 96.5; Estimated Glomerular Filt Rate > 60; Glucose Random 97 mg/dL (60-115); Potassium 4.6 mmol/L (3.3-5.1); Sodium 144 mmol/L (135-145)
[2021-07-05 14:57] LABS: Erythrocyte Sedimentation Rate 4 MM/HR (0-15)
[2021-07-05] MEDS: Morphine Sulfate 4 MG/ML CARTRIDGE IM (15:16)
== END 2021-07-05 20:19 | disposition home or self-care (01) ==
PROVIDERS: Nurse Practitioner Family; Emergency Provider Emergency Medicine; PCP Internal Medicine
DX: G50.0 Trigeminal neuralgia (principal); Z79.899 Other long term (current) drug therapy
CPT/HCPCS: 36415; 80048; 85025; 85652; 86140; 96372; 99284; J1885; J2270

== ENCOUNTER 2021-07-11 13:39 | Inpatient (IN) | payer MEDICARE, SELFPAY ==
--- NOTE | ~2021-07-11 | XR_ITS ---
EXAMINATION: RIGHT FOOT AND ANKLE X-RAY CLINICAL INFORMATION: Pain. Fall. COMPARISON: Right foot x-ray March 2021 TECHNIQUE: 3 views of the right foot and 3 views of the right ankle FINDINGS: Right foot: No fracture or dislocation is seen. The bones are osteopenic. There is hallux valgus deformity and arthritis at the first MTP joint. Joint spaces are otherwise normal. There is diffuse soft tissue swelling about the midfoot. Right ankle: The bones are osteopenic. No fracture or dislocation is seen. The ankle mortise is normal. There is diffuse soft tissue swelling, greatest laterally. XR/XR ankle RT min 3V IMPRESSION: Osteopenia and diffuse soft tissue swelling. No fracture or dislocation seen. Arthritis and hallux valgus deformity of the first MTP joint.
--- NOTE | ~2021-07-11 | XR_ITS ---
EXAMINATION: RIGHT FOOT AND ANKLE X-RAY CLINICAL INFORMATION: Pain. Fall. COMPARISON: Right foot x-ray March 2021 TECHNIQUE: 3 views of the right foot and 3 views of the right ankle FINDINGS: Right foot: No fracture or dislocation is seen. The bones are osteopenic. There is hallux valgus deformity and arthritis at the first MTP joint. Joint spaces are otherwise normal. There is diffuse soft tissue swelling about the midfoot. Right ankle: The bones are osteopenic. No fracture or dislocation is seen. The ankle mortise is normal. There is diffuse soft tissue swelling, greatest laterally. XR/XR foot RT min 3V IMPRESSION: Osteopenia and diffuse soft tissue swelling. No fracture or dislocation seen. Arthritis and hallux valgus deformity of the first MTP joint.
--- NOTE | ~2021-07-11 | CT_ITS ---
EXAMINATION: CT ABDOMEN AND PELVIS WITHOUT CONTRAST CLINICAL INFORMATION: Pain. Urinary retention. COMPARISON: None TECHNIQUE: Multidetector volumetric imaging was performed from the superior aspect of the liver through the pubic symphysis. Sagittal and coronal reformatted images were obtained on the technologist's workstation. Images of the upper abdomen are limited due to motion artifact. This CT examination was performed using dose optimization techniques as appropriate, variously including the following: *Automated exposure control *Adjustment of mA and/or kV according to patient size (this includes techniques or standardized protocols for targeted exams where dose is matched to indication/reason for exam; i.e. extremities or head) *Use of iterative reconstruction technique DLP: 657 mGy-cm FINDINGS: LUNG BASES: The visualized lung bases are unremarkable. LIVER, GALLBLADDER, AND BILIARY TREE: The liver is normal in size, shape, and attenuation. No focal hepatic lesion or biliary ductal dilatation is present. The gallbladder is without wall visualize due to motion artifact. No gallstones are seen. PANCREAS: Unremarkable. SPLEEN: Unremarkable. ADRENAL GLANDS: Unremarkable. KIDNEYS AND URETERS: There is a 7 x 8 cm cyst in the upper pole of the right kidney. There is mild bilateral hydronephrosis and proximal ureteral dilatation. No renal or ureteral stone is seen. BLADDER: There is a Beth catheter in the bladder. There is a small amount of air seen in the bladder. There is a 1.2 x 1.6 cm bladder stone. GASTROINTESTINAL TRACT: There is a large amount of stool seen in the colon suggestive of constipation and fecal impaction. Small and large bowel is otherwise unremarkable. The appendix is unremarkable. ABDOMINAL WALL: No significant hernia. LYMPH NODES: Normal. VASCULAR: There is evidence of atherosclerotic disease. No aneurysm is seen. PELVIC VISCERA: Unremarkable. OSSEOUS STRUCTURES: There are degenerative changes of the spine and hip joints. There is a old trauma or bony exostosis seen involving the left iliac crest. CT/CT abdomen pelvis wo con IMPRESSION: Limited exam due to motion artifact. Beth catheter in the bladder. Large 1.2 x 1.6 cm bladder stone. Small amount of air in the bladder, presumably related to Beth catheter. Mild bilateral hydronephrosis and proximal ureteral dilatation. No renal or ureteral stone seen. Large 7 x 8 cm right renal cyst constipation. Constipation and fecal impaction. Atherosclerotic disease.
--- NOTE | ~2021-07-11 | US_ITS ---
EXAMINATION: US RETROPERITONEAL LIMITED (RENAL ONLY) CLINICAL INFORMATION: Bilateral hydronephrosis. COMPARISON: CT abdomen and pelvis 07/11/2021. TECHNIQUE: Real-time imaging of the kidneys. Limited exam due to patient mobility. FINDINGS: RIGHT KIDNEY: 13.1 x 6.4 x 7.5 cm (SAG x AP x TRV). The kidney is normal in size, contour, and echogenicity. Renal cortical thickness is normal. No renal calculi or hydronephrosis. Redemonstration of a right renal cyst measuring up to 7.7 cm with a single thin septation. LEFT KIDNEY: 11.5 x 6.5 x 5.0 cm (SAG x AP x TRV). The kidney is normal in size, contour, and echogenicity. Renal cortical thickness is normal. No calculi or focal parenchymal lesions. No hydronephrosis. US/US renal BI IMPRESSION: No hydronephrosis. Stable right renal cyst with thin septation.
--- NOTE | ~2021-07-11 | XR_ITS ---
EXAMINATION: XR KNEE, RIGHT CLINICAL INFORMATION: Fall COMPARISON: None TECHNIQUE: Four views of the right knee. FINDINGS: There is osteopenia. There is a comminuted fracture of the right proximal tibia. There is a transverse fracture of the proximal tibial metaphysis. There appears to be a vertical component that extends to the lateral tibial plateau. There is a nondisplaced fracture of the fibular head. The joint spaces are normal. There is a joint effusion and fat fluid level. There is evidence of atherosclerotic disease. XR/XR knee RT 4V IMPRESSION: Right proximal tibial fracture involving the lateral tibial plateau and fibular head fracture. Joint effusion and fat fluid level.
--- NOTE | ~2021-07-11 | XR_ITS ---
EXAMINATION: XR CHEST CLINICAL INFORMATION: Weakness COMPARISON: None TECHNIQUE: Frontal view of the chest was obtained. FINDINGS: The cardiac and mediastinal contours are normal. The lungs are clear. There is no pleural effusion or pneumothorax. There are degenerative changes of the spine. XR/XR chest 1V IMPRESSION: No evidence for acute disease in the chest.
--- NOTE | 2021-07-11 14:03 | ED_ITS ---
HPI - Abdominal Pain General Chief Complaint: Urogenital-Male Stated Complaint: LOW ABD PAIN, BLOCKED CATH Time Seen by Provider: 07/11/21 14:02 Source: patient and EMS Mode of arrival: EMS Limitations: no limitations History of Present Illness HPI narrative: notes he fell because he tripped over a bubble in the rug and was on the floor for almost 8 hours MD elicited complaint: abdominal pain and other (fall last night due to tripping) Pertinent past history: other (chronic clark and C5 SCI) Onset (ago): day(s) (yesterday) Pain Consistency: intermittent Location: suprapubic Severity: mild Quality: fullness and dull Radiation: none Exacerbating factors: nothing Relieving factors: nothing Context: history of similar episodes Associated symptoms: other (tripped and fell yesterday due to rug issue, scraped his left elbow, R foot hurts and he states he scraped his R great toe - was on the floor last night for about 8 hours, EMS instructed him to come but he refused. he also notes his clark was changed about 1.5 weeks ago) Related Data Home Medications Medication Instructions Recorded Confirmed gabapentin 800 mg tablet 1 tab PO BID PRN 04/01/21 07/11/21 Previous Rx's Medication Instructions Recorded oxycodone 5 mg tablet 5 mg PO Q8H PRN #8 tab 07/05/21 Allergies Allergy/AdvReac Type Severity Reaction Status Date / Time No Known Allergies Allergy Verified 08/14/20 23:40 [No Known Allergies*] Review of Systems Review of Systems Constitutional : No Weight loss, No Fever, No Chills ENT/Mouth : No sore throat, No Rhinorrhea Eyes: No Swelling, No Redness Cardiovascular : No Chest Pain, No SOB, NoEdema Respiratory : No Cough, No Sputum, No Wheezing Gastrointestinal : no Nausea, no Vomiting, no Diarrhea, positive abdominal Pain, No Hematochezia, No Melena Genitourinary : No Dysuria, No Urinary Frequency, pos Hematuria, No Urgency Musculoskeletal :pos joint pain, No Myalgias, pos Joint Swelling Skin : No Skin Lesions, No rash Neuro : No Weakness, No Numbness, No Dizziness, No Headache, pos fall last night Psych : No Anxiety/Panic, No Depression Heme/Lymph: No Bruising, No Lymphadenopathy Endocrine : No Polyuria, No Polydipsia All other systems reviewed and are negative. Physical Exam Vital Signs: Vital Signs: Last Vital Signs Temp 97.6 F 07/11/21 16:00 Pulse 88 07/11/21 16:00 Resp 16 07/11/21 16:00 BP 99/62 07/11/21 16:00 Pulse Ox 99 07/11/21 16:00 Body Mass Index 22.5 Appearance: Alert. Oriented X3. No acute distress. Eyes: Pupils equal, round and reactive to light. ENT: Pharynx normal. Neck: Normal inspection. Neck supple. CVS: Normal heart rate and rhythm. Pulses normal. Respiratory: No respiratory distress. Breath sounds normal. Abdomen: Soft and mild suprapubic ttp some distention : no signs of infection Skin: Skin warm and dry. Normal skin color. superficial abrasion to L elbow and R great toe Extremities: 1+ pitting bilateral lower extremity edema. No calf ttp R foot seems somewhat angulated swelling around R ankle, R knee moderate effusion noted with contusion to patella Neuro: Oriented X 3. paraplegia Procedures Orthopedic Splinting/Casting Injury #1: Side: right Lower Extremity Injury Location: knee Lower Extremity Immobilizer: knee immobilizer Course Course Course Narrative: patient was retaining - clark placed 800cc per RN 3L of NS ordered - lactic acid 7 empiric ceftriaxone for possible infection suspected at 414pm nonambulatory I do not suspect any orthopedic fixation at this time for his injuries MDM - Abdominal Pain MDM Narrative Medical decision making narrative: 76 yo male with C5 SCI hx of chronic clark reports darker urine, lower abdominal pain yesterday then states he fell last night and was on the floor for several hours - denies LOC or head trauma reports scraping L elbow and R foot - at this time labs, change clark, CT scan for obstruction, labs, xrays of RLE. Dispo per results and findings. Lab Data Result diagrams: 07/11/21 15:47 07/11/21 15:47 Labs: Lab Results 07/11/21 07/11/21 07/11/21 Range/Units 15:46 15:47 15:47 WBC 14.4 H (4.8-10.8) X10*3/uL RBC 5.27 (4.60-5.80) X10*6/uL Hgb 16.5 (14.0-18.0) g/dl Hct 51.4 (42-52) % MCV 97.5 (80-98) fL MCH 31.3 (27.0-33.0) pg MCHC 32.1 (31.0-36.0) g/dl RDW 13.8 (11.0-16.0) % Plt Count 166 (160-400) X10*3/uL MPV 10.2 (9.4-12.4) fL Immature Gran % (Auto) 0.3 (0.0-0.4) % Neut % (Auto) 88.2 H (45-73) % Lymph % (Auto) 4.8 L (20-40) % [place] % (Auto) 6.5 (2-11) % Eos % (Auto) 0.1 (0-4) % Baso % (Auto) 0.1 (0-2) % Lymph # (Auto) 0.7 L (1.2-4.9) X10*3/uL [place] # (Auto) 0.9 (0.1-1.2) X10*3/uL Eos # (Auto) 0.0 (0.0-0.4) X10*3/uL Baso # (Auto) 0.0 (0.0-0.2) X10*3/uL Abs Immat Gran (auto) 0.04 H (0.00-0.03) X10*3/uL Absolute Neuts (auto) 12.7 H (2.0-8.3) X10*3/uL Absolute Nucleated RBC 0.000 (0.0-0.012) X10*3/uL Nucleated RBC % (auto) 0.0 (0.0-0.2) /100WBC Sodium 138 (135-145) mmol/L Potassium 5.1 (3.3-5.1) mmol/L Chloride 101 (96-108) mmol/L Carbon Dioxide 21 L (22-29) mmol/L Anion Gap 21 H (12-20) BUN 33 H D (9-16) mg/dL Creatinine 2.31 H (0.5-1.4) mg/dL Estim Creat Clear Calc 32.7 Estimated GFR 28 Random Glucose 139 H D (60-115) mg/dL Lactic Acid (0.5-2.0) mmol/L Calcium 9.3 (8.4-10.2) mg/dL Magnesium 2.1 (1.6-2.6) mg/dL Total Bilirubin 1.6 H (0.0-1.0) mg/dL Direct Bilirubin 0.6 H (0.0-0.5) mg/dL AST 111 H (5-37) U/L ALT 36 (0-40) U/L Alkaline Phosphatase 104 (39-117) U/L Total Creatine Kinase 4341 H (38-174) U/L Troponin I High Sens (<3.5-35.0) ng/L Total Protein 6.4 L (6.5-8.0) g/dL Albumin 3.8 (3.5-5.0) g/dL Urine Color RED Urine Appearance CLOUDY Urine pH 8.5 H (5.0-8.0) Ur Specific [place] 1.010 (1.005-1.025) Urine Protein 2+ H (NEG-TRACE) MG/DL Urine Glucose (UA) NEG (NEG) MG/DL Urine Ketones NEG (NEG) MG/DL Urine Blood 3+ H (NEG) Urine Nitrite POS H (NEG) Ur Leukocyte Esterase 2+ H (NEG) Urine RBC 50-75 H (0) /HPF Urine WBC 50-75 H (0-4) /HPF Ur Squamous Epith Cells TRACE /LPF Urine Bacteria 3+ /LPF COVID-19 (JOSE) (Negative) COVID-19 Clin Com 07/11/21 07/11/21 07/11/21 Range/Units 15:47 15:47 15:47 WBC (4.8-10.8) X10*3/uL RBC (4.60-5.80) X10*6/uL Hgb (14.0-18.0) g/dl Hct (42-52) % MCV (80-98) fL MCH (27.0-33.0) pg MCHC (31.0-36.0) g/dl RDW (11.0-16.0) % Plt Count (160-400) X10*3/uL MPV (9.4-12.4) fL Immature Gran % (Auto) (0.0-0.4) % Neut % (Auto) (45-73) % Lymph % (Auto) (20-40) % [place] % (Auto) (2-11) % Eos % (Auto) (0-4) % Baso % (Auto) (0-2) % Lymph # (Auto) (1.2-4.9) X10*3/uL [place] # (Auto) (0.1-1.2) X10*3/uL Eos # (Auto) (0.0-0.4) X10*3/uL Baso # (Auto) (0.0-0.2) X10*3/uL Abs Immat Gran (auto) (0.00-0.03) X10*3/uL Absolute Neuts (auto) (2.0-8.3) X10*3/uL Absolute Nucleated RBC (0.0-0.012) X10*3/uL Nucleated RBC % (auto) (0.0-0.2) /100WBC Sodium (135-145) mmol/L Potassium (3.3-5.1) mmol/L Chloride (96-108) mmol/L Carbon Dioxide (22-29) mmol/L Anion Gap (12-20) BUN (9-16) mg/dL Creatinine (0.5-1.4) mg/dL Estim Creat Clear Calc Estimated GFR Random Glucose (60-115) mg/dL Lactic Acid 7.6 H* (0.5-2.0) mmol/L Calcium (8.4-10.2) mg/dL Magnesium (1.6-2.6) mg/dL Total Bilirubin (0.0-1.0) mg/dL Direct Bilirubin (0.0-0.5) mg/dL AST (5-37) U/L ALT (0-40) U/L Alkaline Phosphatase (39-117) U/L Total Creatine Kinase (38-174) U/L Troponin I High Sens 94.0 H* (<3.5-35.0) ng/L Total Protein (6.5-8.0) g/dL Albumin (3.5-5.0) g/dL Urine Color Urine Appearance Urine pH (5.0-8.0) Ur Specific [place] (1.005-1.025) Urine Protein (NEG-TRACE) MG/DL Urine Glucose (UA) (NEG) MG/DL Urine Ketones (NEG) MG/DL Urine Blood (NEG) Urine Nitrite (NEG) Ur Leukocyte Esterase (NEG) Urine RBC (0) /HPF Urine WBC (0-4) /HPF Ur Squamous Epith Cells /LPF Urine Bacteria /LPF COVID-19 (JOSE) Negative (Negative) COVID-19 Clin Com See Note ECG Data Attestation: I personally reviewed and interpreted this ECG as follows: ECG interpretation date: 07/11/21 ECG interpretation time: 16:26 Interpretation: Rate: 86 Rhythm: NSR [place]: normal Normal P waves. Normal COURT. Normal QRS complex. ST T wave : ST depressions lateral leads, no KARSTEN qTC: normal prior studies: no priors The study has been interpreted contemporaneously by me. . Critical Care Time Critical Care Time Critical Care Time: Yes Total Critical Care Time: 35 Attestation: 3L of IVF, reassessments. I attest to this time spent taking care of the patient Discharge Plan Discharge Clinical Impression: Fracture, tibial plateau, Acute urinary retention, Closed fracture fibula, head, Rhabdomyolysis, ALEAH (acute kidney injury), Acidosis, lactic, Acute UTI Patient Disposition: Admitted As Inpatient [facility] Past Medical History Attestation statement: The following information was validated with the patient. Medical History Chronic UTI (urinary tract infection) Clark catheter in place Paraplegia Spinal cord injury Social History Social History Household Members: None Housing: House Do you presently have visiting nurse or other home services: Yes Alcohol intake: never Patient Tobacco Use Status: Former Tobacco user Use of substances other than those prescribed or required for medical reasons: No Advance Directives: Yes Advance Directives Information Provided: Yes Advance Directives on File: No Advance Directives Date on File: 04/01/21 service: Yes Current occupational status: disabled
[2021-07-11 14:08] VITALS: BP 164/125; PULSE 79; RESP 16; TEMP 36.8; O2SAT 96; BMI 22.5
--- NOTE | 2021-07-11 14:16 | ECG_ITS ---
Test Reason : MEDICAL Blood Pressure : / mmHG Vent. Rate : 086 BPM Atrial Rate : 086 BPM P-R Int : 160 ms QRS Dur : 074 ms QT Int : 392 ms P-R-T Axes : 068 017 062 degrees QTc Int : 469 ms Normal sinus rhythm Possible Left atrial enlargement Inferior infarct , age undetermined Abnormal ECG No previous ECGs available Referred By: Elisabeth Alex Electronically Signed By:KIMBERLY ANAYA
[2021-07-11 15:55] LABS: MANUAL DIFF FLAG NO
[2021-07-11 15:59] LABS: Appearance Urine CLOUDY; Color Urine RED; Glucose Urine UA NEG (NEG); Leukocyte Esterase Urine 2+ (NEG); Nitrite Urine POS (NEG); PH 8.5 (5.0-8.0); UACC Culture Trigger YES; Urine Blood 3+ (NEG); Urine Ketones NEG (NEG)
[2021-07-11 15:59] LABS: Basophils Percent Auto 0.1 % (0-2); Eosinophils Percent Auto 0.1 % (0-4); Hematocrit 51.4 % (42-52); Hemoglobin 16.5 g/dl (14.0-18.0); Imm Gran Abs Auto 0.04 X10*3/uL (0.00-0.03); Imm Gran Pct Auto 0.3 % (0.0-0.4); Lymphocytes Absolute Auto 0.7 X10*3/uL (1.2-4.9); Lymphocytes Percent Auto 4.8 % (20-40); Mean Corpuscular HGB Conc 32.1 g/dl (31.0-36.0); Mean Corpuscular Hemoglobin 31.3 pg (27.0-33.0); Mean Corpuscular Volume 97.5 fL (80-98); Mean Platelet Volume 10.2 fL (9.4-12.4); Monocytes Absolute Auto 0.9 X10*3/uL (0.1-1.2); Monocytes Percent Auto 6.5 % (2-11); Neutrophils Absolute Auto 12.7 X10*3/uL (2.0-8.3); Neutrophils Percent Auto 88.2 % (45-73); Platelet Count 166 X10*3/uL (160-400); Red Blood Count 5.27 X10*6/uL (4.60-5.80); Red Cell Distribution Width 13.8 % (11.0-16.0); White Blood Count 14.4 X10*3/uL (4.8-10.8)
[2021-07-11 16:00] VITALS: BP 99/62; PULSE 88; RESP 16; TEMP 36.4; O2SAT 99
[2021-07-11 16:13] LABS: Lactic Acid 7.6 mmol/L (0.5-2.0)
[2021-07-11 16:15] LABS: COVID-19 Test Negative (Negative); IDNOW Serial# 08D9AD1C
[2021-07-11 16:16] LABS: Alanine Aminotransferase 36 U/L (0-40); Albumin Level 3.8 g/dL (3.5-5.0); Alkaline Phosphatase 104 U/L (39-117); Anion Gap 21 (12-20); Aspartate Amino Transferase 111 U/L (5-37); Bilirubin Direct 0.6 mg/dL (0.0-0.5); Bilirubin Total 1.6 mg/dL (0.0-1.0); Blood Urea Nitrogen 33 mg/dL (9-16); Calcium 9.3 mg/dL (8.4-10.2); Carbon Dioxide 21 mmol/L (22-29); Chloride 101 mmol/L (96-108); Creatinine Clr Calc Pharmacy 32.7; Estimated Glomerular Filt Rate 28; Glucose Random 139 mg/dL (60-115); Magnesium 2.1 mg/dL (1.6-2.6); Potassium 5.1 mmol/L (3.3-5.1); Sodium 138 mmol/L (135-145); Total Protein 6.4 g/dL (6.5-8.0)
--- NOTE | 2021-07-11 16:20 | PC.NURSE ---
new clark draining well, about 500cc of very dark ariane like in color with some blood visible, pt denies pain at this time
[2021-07-11] MEDS: 0.9 % Sodium Chloride 1,000 ML 999 ML IVCONT ×2 (16:29→18:37)
[2021-07-11 16:42] LABS: Urine Protein 2+ MG/DL (NEG-TRACE)
[2021-07-11 16:43] LABS: Bacteria Urine 3+ /LPF; RBC Urine 50-75 /HPF (0); Squamous Epithelial Cell Urine TRACE /LPF; WBC Urine 50-75 /HPF (0-4)
--- NOTE | 2021-07-11 16:51 | PC.NURSE ---
PATIENT WAS CHANGE AND REPOSITION ,PATIENT HAD 1000 ML URINE IN CATHETER BAG .
[2021-07-11] MEDS: cefTRIAXone sodium 1 GM in 0.9 % Sodium Chloride 50 ML IV (16:57)
[2021-07-11] MEDS: 0.9 % Sodium Chloride 1,000 ML 999 ML IV (17:01)
--- NOTE | 2021-07-11 17:09 | PM.IMHP ---
History of Present Illness Date of Service: 07/11/21 <Gali Spence NP - Last Filed: 07/11/21 17:54> Chief Complaint: Fall <Gali Spence NP - Last Filed: 07/11/21 17:54> 76 year old man presenting after falling from his wheelchair last night. He was on the floor for about 8-9 hours and finally was able to get someone's attention after yelling for some time. He reported right leg pain and knee x-ray showed right proximal tibial fracture involving the lateral tibial plateau and fibular head fracture. Abdominal CT showed large bladder stone with mild bilateral hydronephrosis and proximal ureteral dilatation with constipation and fecal impaction noted as well. He denied chest pain, shortness of breath, nausea, vomiting, diarrhea. Has very limited function of his lower extremities as he does have a cervical spine injury from previous time. He was noted to have an elevation in his CK at 4341 as well as his troponin with no ischemic changes on EKG. he was given 2 L of IV fluid, Rocephin. He will be admitted for further management and treatment of mild rhabdomyolysis, tibial fracture. <Gali Spence NP - Last Filed: 07/11/21 17:54> Review of Systems Review of Systems: Denies any recent fever chills or decrease in appetite respiratory denies any shortness of breath coverage production cardiovascular Denies chest pain gastrointestinal denies any dysphagia abdominal pain nausea vomiting or diarrhea genitourinary denies any dysuria frequency or hematuria musculoskeletal reports right leg pain neuropsych paraplegia all other systems reviewed are negative <Gali Spence NP - Last Filed: 07/11/21 17:54> [facility] Medical History: Medical History Chronic UTI (urinary tract infection) Beth catheter in place Paraplegia Spinal cord injury <Gali Spence NP - Last Filed: 07/11/21 17:54> Pertinent family history: no cardiac disease <Gali Spence NP - Last Filed: 07/11/21 17:54> Social History: Social History Household Members: None Housing: House Do you presently have visiting nurse or other home services: Yes (aid comes 1 hr every morning) Alcohol intake: never Patient Tobacco Use Status: Former Tobacco user Advance Directives Date on File: 04/01/21 service: Yes Current occupational status: disabled <Gali Spence NP - Last Filed: 07/11/21 17:54> Meds Allergies/Adverse reactions: Allergies Allergy/AdvReac Type Severity Reaction Status Date / Time No Known Allergies Allergy Verified 08/14/20 23:40 [No Known Allergies*] <Gali Spence NP - Last Filed: 07/11/21 17:54> Active Medications: Current Medications Sodium Chloride (Ns) 1,000 mls @ 999 mls/hr IVCONT .Q1H1M FRANC Stop: 07/11/21 18:15 Last Admin: 07/11/21 16:29 Dose: 999 mls/hr Documented by: Sodium Chloride (Ns) 1,000 mls @ 999 mls/hr IV .Q1H1M FRANC Stop: 07/11/21 17:15 Last Admin: 07/11/21 17:01 Dose: 999 mls/hr Documented by: Pharmacy Consult (Consult Rx Perform Med Rec) 1 each MISCELLANE ONCE PRN PRN Reason: Consult order <Gali Spence NP - Last Filed: 07/11/21 17:54> Home medications: Home Medications Medication Instructions Recorded Confirmed Last Taken Type gabapentin 800 mg tablet 1 tab PO BID PRN 04/01/21 07/11/21 Unknown History <Gali Spence NP - Last Filed: 07/11/21 17:54> Physical Exam Vital Signs and Narrative: Vital Signs: Last Vital Signs Temp 97.6 F 07/11/21 16:00 Pulse 88 07/11/21 16:00 Resp 16 07/11/21 16:00 BP 99/62 07/11/21 16:00 Pulse Ox 99 07/11/21 16:00 Body Mass Index 22.5 <Gali Spence NP - Last Filed: 07/11/21 17:54> Appearing in no acute distress head is normocephalic atraumatic eyes pupils are PERRLA sclera is anicteric mouth throat mucous membranes are intact and moist neck is supple no lymphadenopathy, no JVD noted lung sounds are clear to auscultation heart regular rate rhythm, clear S1, S2 positive bowel sounds, abdomen is soft, nontender neuro paraplegia from cervical spine injury <Gali Spence NP - Last Filed: 07/11/21 17:54> Results Labs CBC and Chem 7: : 07/15/21 05:51 07/14/21 17:34 <Gali Jordy, RETAIL MANAGER - Last Filed: 07/11/21 17:54> Labs: Laboratory Results - last 24 hr 07/11/21 07/11/21 07/11/21 15:46 15:47 15:47 MCV 97.5 MCH 31.3 MCHC 32.1 RDW 13.8 Plt Count 166 MPV 10.2 Immature Gran % (Auto) 0.3 Neut % (Auto) 88.2 H Lymph % (Auto) 4.8 L [place] % (Auto) 6.5 Eos % (Auto) 0.1 Baso % (Auto) 0.1 Lymph # (Auto) 0.7 L [place] # (Auto) 0.9 Eos # (Auto) 0.0 Baso # (Auto) 0.0 Abs Immat Gran (auto) 0.04 H Absolute Neuts (auto) 12.7 H Absolute Nucleated RBC 0.000 Nucleated RBC % (auto) 0.0 Anion Gap 21 H Estim Creat Clear Calc 32.7 Estimated GFR 28 Random Glucose 139 H D Lactic Acid Calcium 9.3 Magnesium 2.1 Total Bilirubin 1.6 H Direct Bilirubin 0.6 H AST 111 H ALT 36 Alkaline Phosphatase 104 Total Creatine Kinase 4341 H Troponin I High Sens Total Protein 6.4 L Albumin 3.8 Urine Color RED Urine Appearance CLOUDY Urine pH 8.5 H Ur Specific [place] 1.010 Urine Protein 2+ H Urine Glucose (UA) NEG Urine Ketones NEG Urine Blood 3+ H Urine Nitrite POS H Ur Leukocyte Esterase 2+ H Urine RBC 50-75 H Urine WBC 50-75 H Ur Squamous Epith Cells TRACE Urine Bacteria 3+ COVID-19 (JOSE) COVID-19 Clin Com 07/11/21 07/11/21 07/11/21 15:47 15:47 15:47 MCV MCH MCHC RDW Plt Count MPV Immature Gran % (Auto) Neut % (Auto) Lymph % (Auto) [place] % (Auto) Eos % (Auto) Baso % (Auto) Lymph # (Auto) [place] # (Auto) Eos # (Auto) Baso # (Auto) Abs Immat Gran (auto) Absolute Neuts (auto) Absolute Nucleated RBC Nucleated RBC % (auto) Anion Gap Estim Creat Clear Calc Estimated GFR Random Glucose Lactic Acid 7.6 H* Calcium Magnesium Total Bilirubin Direct Bilirubin AST ALT Alkaline Phosphatase Total Creatine Kinase Troponin I High Sens 94.0 H* Total Protein Albumin Urine Color Urine Appearance Urine pH Ur Specific [place] Urine Protein Urine Glucose (UA) Urine Ketones Urine Blood Urine Nitrite Ur Leukocyte Esterase Urine RBC Urine WBC Ur Squamous Epith Cells Urine Bacteria COVID-19 (JOSE) Negative COVID-19 Clin Com See Note <Gali Spence NP - Last Filed: 07/11/21 17:54> Imaging Radiologist's Impressions: Impressions Abdomen/Pelvis CT 07/11/21 14:16 IMPRESSION: Limited exam due to motion artifact. Beth catheter in the bladder. Large 1.2 x 1.6 cm bladder stone. Small amount of air in the bladder, presumably related to Beth catheter. Mild bilateral hydronephrosis and proximal ureteral dilatation. No renal or ureteral stone seen. Large 7 x 8 cm right renal cyst constipation. Constipation and fecal impaction. Atherosclerotic disease. Ankle X-Ray 07/11/21 14:16 IMPRESSION: Osteopenia and diffuse soft tissue swelling. No fracture or dislocation seen. Arthritis and hallux valgus deformity of the first MTP joint. Foot X-Ray 07/11/21 14:16 IMPRESSION: Osteopenia and diffuse soft tissue swelling. No fracture or dislocation seen. Arthritis and hallux valgus deformity of the first MTP joint. Knee X-Ray 07/11/21 14:16 IMPRESSION: Right proximal tibial fracture involving the lateral tibial plateau and fibular head fracture. Joint effusion and fat fluid level. Chest X-Ray 07/11/21 14:17 IMPRESSION: No evidence for acute disease in the chest. <Gali Spence NP - Last Filed: 07/11/21 17:54> Assessment and Plan (1) Fracture, tibial plateau: Qualifiers: Encounter type: initial encounter Fracture type: closed Laterality: right Qualified Code(s): S82.141A - Displaced bicondylar fracture of right tibia, initial encounter for closed fracture <Gali Spence NP - Last Filed: 07/11/21 17:54> Status: Acute <Gali Spence NP - Last Filed: 07/11/21 17:54> (2) Rhabdomyolysis: Qualifiers: Encounter type: initial encounter Rhabdomyolysis type: traumatic Qualified Code(s): T79.6XXA - Traumatic ischemia of muscle, initial encounter <Gali Spence NP - Last Filed: 07/11/21 17:54> Status: Acute <Gali Spence NP - Last Filed: 07/11/21 17:54> (3) ALEAH (acute kidney injury): Status: Acute <Gali Spence NP - Last Filed: 07/11/21 17:54> (4) Chronic UTI (urinary tract infection): Status: Acute <Gali Spence NP - Last Filed: 07/11/21 17:54> (5) Constipation: Status: Acute <Gali Spence NP - Last Filed: 07/11/21 17:54> (6) Bladder stones: Status: Acute <Gali Spence NP - Last Filed: 07/11/21 17:54> 76-year-old man with paraplegia admitted after a fall who developed rhabdomyolysis from being on the floor for 8 hours Mild rhabdomyolysis. CK 4341 Secondary to fall IV fluids Monitor CK daily Monitor renal function UTI/chronic Beth catheter. Chronic UTIs, however reports blockage as this catheter has not been changed recently Will continue Rocephin for now Follow urine culture Elevated troponin. No chest pain Likely secondary to rhabdomyolysis and ALEAH Trend troponin No ischemic changes noted on EKG ALEAH. Secondary to rhabdomyolysis Avoid nephrotoxins IV fluids Follow BMP closely Tibial plateau fracture Orthopedic consultation Brace on Pain management Mild hydronephrosis, renal cyst Neurology consultation Constipation/fecal impaction Fleets enema MiraLax DVT prophylaxis Attending Dr. Serna <Gali Spence NP - Last Filed: 07/11/21 17:54> 76-year-old man with paraplegia admitted after a fall who developed rhabdomyolysis from being on the floor for 8 hours Mild rhabdomyolysis. CK 4341 Secondary to fall IV fluids Monitor CK daily Monitor renal function UTI/chronic Beth catheter. Chronic UTIs, however reports blockage as this catheter has not been changed recently Will continue Rocephin for now Follow urine culture Elevated troponin. No chest pain Likely secondary to rhabdomyolysis and ALEAH Trend troponin No ischemic changes noted on EKG ALEAH. Secondary to rhabdomyolysis Avoid nephrotoxins IV fluids Follow BMP closely Tibial plateau fracture Orthopedic consultation Brace on Pain management Mild hydronephrosis, renal cyst Neurology consultation Constipation/fecal impaction Fleets enema MiraLax DVT prophylaxis Attending Dr. Serna I saw and examined ptient wit RETAIL MANAGER and discussed physical finding, labs, meds, imaging and assessment and plan as well as dispisition and I agree with above. Debbie Serna MD DOS 07/11/21 <Óscar Serna MD - Last Filed: 07/16/21 12:19> Quality Stroke Does the patient have a stroke diagnosis?: No <Gali Spence NP - Last Filed: 07/11/21 17:54> VTE Prior VTE?: No <Gali Spence NP - Last Filed: 07/11/21 17:54> VTE Risk Level:: Medical - moderate - high <Gali Spence NP - Last Filed: 07/11/21 17:54> VTE Device Contraindication: Treatment Not Indicated <Gali Spence NP - Last Filed: 07/11/21 17:54> VTE Drug Contraindication: N/A - Med Ordered <Gali Spence NP - Last Filed: 07/11/21 17:54>
[2021-07-11 17:14] VITALS: BP 143/63; PULSE 87; RESP 17; TEMP 36.4; O2SAT 96
--- NOTE | 2021-07-11 17:37 | PC.NURSE ---
Knee mobilizer apply on patient right leg
[2021-07-11 17:54] LABS: Reflex Lactate? Lactic Acid Added
[2021-07-11 18:04] LABS: Troponin-I High Sensitivity 70.2 ng/L (<3.5-35.0)
[2021-07-11 18:29] LABS: ~Lactic Acid-LAB USE ONLY 8.7 mmol/L (0.5-2.0)
--- NOTE | 2021-07-11 18:35 | PC.NURSE ---
report given to [facility] rn
[2021-07-11 19:46] LABS: Lactic Acid 7.2 mmol/L (0.5-2.0)
[2021-07-11 20:00] VITALS: BP 137/89; PULSE 98; RESP 19; TEMP 36.3; O2SAT 96
[2021-07-11 20:15] LABS: Reflex Lactate? 2 Y
[2021-07-11] MEDS: 0.9 % Sodium Chloride 1,000 ML 100 ML IVCONT (21:09)
[2021-07-11 21:26] LABS: Reflex Lactate? Lactic Acid Added
[2021-07-11 21:57] LABS: ~Lactic Acid-LAB USE ONLY 6.4 mmol/L (0.5-2.0)
[2021-07-11 23:38] LABS: Reflex Lactate? 2 Y
[2021-07-11 23:49] VITALS: BP 146/93; PULSE 104; RESP 18; TEMP 36.8; O2SAT 95
[2021-07-12 00:57] LABS: ~Lactic Acid-LAB USE ONLY 4.4 mmol/L (0.5-2.0)
[2021-07-12 04:00] VITALS: BP 119/79; PULSE 100; RESP 20; TEMP 37.1; O2SAT 94
[2021-07-12] MEDS: Heparin Sodium,Porcine 5,000 UNIT/ML VIAL 5000 UNIT SUBCUT ×2 (06:34→16:13)
[2021-07-12] MEDS: 0.9 % Sodium Chloride 1,000 ML 100 ML IVCONT ×2 (06:35→16:12)
[2021-07-12 07:06] VITALS: BP 111/54; PULSE 94; RESP 18; TEMP 36; O2SAT 96
--- NOTE | 2021-07-12 08:33 | P.CDIC_ITS ---
CDI Concurrent Query Documentation Clarification: PHYSICIAN'S DOCUMENTATION REQUEST Date of Query: 07/12/21 0834 Patient Name: Jorge Alberto Dasilva Admit Date: 07/11/21 Dear Doctor, A review of the medical record indicates additional documentation may be indicated. Please review below and update the documentation accordingly. Clinical Indicators: Current documentation includes a diagnosis of UTI. Additional clinical indicators in the record include: Risk Factors/Clinical Indicators/Treatments Patient has chronic clark catheter hasnt been changed in 1.5 weeks. UTI/chronic clark catheter, however reports blockage. cloudy urine, nitrite + leukocyte 2+ red IV ceftriaxone paraplegia, H/O spinal cord injury. Please provide further specificity regarding the site, etiology, acuity, and known or suspected organism: Urinary tract infection * Other (please specify) * Unable to determine site * Indicate known or suspected organism * E-coli * Klebsiella * Rain * Other (please specify) * Indicate if associated with hematuria * Indicate if associated with a device, specify if Clark cath, suprapubic cath, etc. Use of terms such as suspected, likely, concern for, or probable (associated with a specific diagnosis that is being evaluated, monitored, or treated as if it exists) are acceptable and can be coded in the inpatient setting, when documented at the time of discharge. Thank you, Sarah Sunshine [facility], CDIS Extension: [phone] Please use your independent medical judgment in providing your response. THIS QUERY IS PART OF THE PERMANENT MEDICAL RECORD Provider Response: Other Other Diagnosis: Related to Clark catheter
[2021-07-12 09:03] LABS: MANUAL DIFF FLAG NO
[2021-07-12 09:08] LABS: Basophils Percent Auto 0.1 % (0-2); Eosinophils Absolute Auto 0.1 X10*3/uL (0.0-0.4); Eosinophils Percent Auto 1.3 % (0-4); Hematocrit 36.8 % (42-52); Imm Gran Abs Auto 0.04 X10*3/uL (0.00-0.03); Imm Gran Pct Auto 0.5 % (0.0-0.4); Lymphocytes Absolute Auto 0.6 X10*3/uL (1.2-4.9); Lymphocytes Percent Auto 7.5 % (20-40); Mean Corpuscular HGB Conc 32.6 g/dl (31.0-36.0); Mean Corpuscular Hemoglobin 30.9 pg (27.0-33.0); Mean Corpuscular Volume 94.8 fL (80-98); Mean Platelet Volume 10.2 fL (9.4-12.4); Monocytes Absolute Auto 0.7 X10*3/uL (0.1-1.2); Neutrophils Absolute Auto 7.1 X10*3/uL (2.0-8.3); Neutrophils Percent Auto 82.6 % (45-73); Platelet Count 101 X10*3/uL (160-400); Red Blood Count 3.88 X10*6/uL (4.60-5.80); Red Cell Distribution Width 13.2 % (11.0-16.0); White Blood Count 8.5 X10*3/uL (4.8-10.8)
--- NOTE | 2021-07-12 09:09 | PM.UROCN ---
History of Present Illness Consult details Consult date: 07/12/21 Narrative: Jorge Alberto is a older male. Admitted to hospital after fall Vague historian Does describe having some difficulty with urination prior to admission Beth catheter placed for acute urinary retention 600 cc Paraplegic Bladder stone seen on imaging with mild bilateral hydroureteronephrosis consistent with obstructive uropathy Start combination prostate therapy Repeat imaging in 24 hours with renal ultrasound for resolution Remain with Beth catheter drainage Review of Systems Constitutional: Constitutional: Denies chills and Denies fever(s) Cardiovascular: Cardiovascular: Reports no additional cardiovascular complaints and Denies syncope Respiratory: Respiratory: Denies cough Gastrointestinal: Gastrointestinal: Denies abdominal pain and Denies heartburn Genitourinary: Genitourinary: Reports as per HPI and Denies change in libido Neurologic: Denies syncope Psychiatric: Psychiatric: Denies change in libido Endocrine: Endocrine: Denies change in libido PENDING SALE TO [facility] Past Medical History Medical History Chronic UTI (urinary tract infection) Beth catheter in place Paraplegia Spinal cord injury Social History Social History Household Members: None Housing: House Do you presently have visiting nurse or other home services: Yes (aid comes 1 hr every morning) Alcohol intake: never Patient Tobacco Use Status: Former Tobacco user Use of substances other than those prescribed or required for medical reasons: No Currently Displaying Signs/Symptoms of Drug Intoxication Withdrawal: No Have you been hit, kicked, punched, or otherwise hurt by someone within the past year? If so, by whom?: No Do you feel safe in your current relationship?: No Current Relationship Is there a partner from a previous relationship who is making you feel unsafe now?: No Are you made to feel afraid or neglected: No Advance Directives: Yes Advance Directives Information Provided: Yes Advance Directives on File: No Advance Directives Date on File: 04/01/21 Do you have thoughts of harming others: None Do you have a plan to hurt others: No Plan Recently lost weight without trying: No How much weight loss: Not applicable Eating poorly because of decreased appetite: No Nutrition screen score: 0 Nutrition Risks: No Nutritional Risk Poor oral hygiene: No service: Yes Current occupational status: disabled Meds Allergies Allergy/AdvReac Type Severity Reaction Status Date / Time No Known Allergies Allergy Verified 08/14/20 23:40 [No Known Allergies*] Active Medications: Current Medications Acetaminophen (Acetaminophen 325 Mg Tablet) 650 mg PO Q6H PRN PRN Reason: Pain, Mild (Pain Scale 1-3) Heparin Sodium (Porcine) (Heparin Sodium,Porcine 5,000 Unit/Ml Vial) 5,000 unit SUBCUT Q12H [facility] Last Admin: 07/12/21 06:34 Dose: 5,000 unit Documented by: Sodium Chloride (Ns) 1,000 mls @ 100 mls/hr IVCONT .Q10H [facility] Last Admin: 07/12/21 06:35 Dose: 100 mls/hr Documented by: Ceftriaxone Sodium 1 gm/ (Sodium Chloride) 50 mls @ 100 mls/hr IV Q24H FRANC Ondansetron HCl (Ondansetron Hcl 4 Mg/2 Ml Vial) 4 mg IVPUSH Q8H PRN PRN Reason: Nausea and Vomiting Oxycodone HCl (Oxycodone Hcl Immed Release 5 Mg Tablet) 5 mg PO Q4H PRN PRN Reason: pain Pharmacy Consult (Consult Rx Perform Med Rec) 1 each MISCELLANE ONCE PRN PRN Reason: Consult order Polyethylene Glycol (Polyethylene Glycol 3350 17 Gm Powd.Pack) 17 gm PO DAILY [facility] Last Admin: 07/12/21 08:33 Dose: Not Given Documented by: Sodium Chloride (0.9 % Sodium Chloride Flush 3 Ml Syringe) 3 ml IVFLUSH QSHIFT [facility] Last Admin: 07/12/21 00:50 Dose: Not Given Documented by: Home Medications Medication Instructions Recorded Confirmed Last Taken Type gabapentin 800 mg tablet 1 tab PO BID PRN 04/01/21 07/11/21 Unknown History Physical Exam Vital Signs: Vital Signs: Last Vital Signs Temp 96.8 F 07/12/21 07:06 Pulse 94 07/12/21 07:06 Resp 18 07/12/21 07:06 BP 111/54 L 07/12/21 07:06 Pulse Ox 96 07/12/21 07:06 Body Mass Index 22.5 Const: General: cooperative, healthy appearing, comfortable and no acute distress Orientation/consciousness: patient oriented x3 HENMT: Face and sinus: Yes normal facial exam Mouth: moist mucous membranes Neck: Neck: Yes normal visual inspection, Yes full ROM and Yes trachea midline Chest: Chest palpation & inspection: normal inspection of the chest Resp: Effort & Inspection: normal respiratory effort, able to speak in complete sentences and no respiratory distress GI: Inspection: Yes normal to inspection Back/Spine/Pelvis: Cervical Spine: normal cervical lordosis Thoracic/Lumbar Spine: thoracic and lumbar spine normal to inspection Skin: General skin exam: no rashes or lesions noted Neuro: General: patient oriented x3, gait normal, tone normal and moves all extremities Extrem: General: Yes normal to inspection and Yes capillary refill normal Results Labs Result diagrams: 07/11/21 15:47 07/11/21 15:47 Labs: Abnormal lab results 07/11/21 07/11/21 07/11/21 Range/Units 15:46 15:47 15:47 WBC 14.4 H (4.8-10.8) X10*3/uL Neut % (Auto) 88.2 H (45-73) % Lymph % (Auto) 4.8 L (20-40) % Lymph # (Auto) 0.7 L (1.2-4.9) X10*3/uL Abs Immat Gran (auto) 0.04 H (0.00-0.03) X10*3/uL Absolute Neuts (auto) 12.7 H (2.0-8.3) X10*3/uL Carbon Dioxide 21 L (22-29) mmol/L Anion Gap 21 H (12-20) BUN 33 H D (9-16) mg/dL Creatinine 2.31 H (0.5-1.4) mg/dL Random Glucose 139 H D (60-115) mg/dL Lactic Acid (0.5-2.0) mmol/L Lactic Acid Fup @ 2Hr (0.5-2.0) mmol/L Lactic Acid Fup @ 4Hr (0.5-2.0) mmol/L Total Bilirubin 1.6 H (0.0-1.0) mg/dL Direct Bilirubin 0.6 H (0.0-0.5) mg/dL AST 111 H (5-37) U/L Total Creatine Kinase 4341 H (38-174) U/L Troponin I High Sens (<3.5-35.0) ng/L Total Protein 6.4 L (6.5-8.0) g/dL Urine pH 8.5 H (5.0-8.0) Urine Protein 2+ H (NEG-TRACE) MG/DL Urine Blood 3+ H (NEG) Urine Nitrite POS H (NEG) Ur Leukocyte Esterase 2+ H (NEG) Urine RBC 50-75 H (0) /HPF Urine WBC 50-75 H (0-4) /HPF 07/11/21 07/11/21 07/11/21 Range/Units 15:47 15:47 17:29 WBC (4.8-10.8) X10*3/uL Neut % (Auto) (45-73) % Lymph % (Auto) (20-40) % Lymph # (Auto) (1.2-4.9) X10*3/uL Abs Immat Gran (auto) (0.00-0.03) X10*3/uL Absolute Neuts (auto) (2.0-8.3) X10*3/uL Carbon Dioxide (22-29) mmol/L Anion Gap (12-20) BUN (9-16) mg/dL Creatinine (0.5-1.4) mg/dL Random Glucose (60-115) mg/dL Lactic Acid 7.6 H* (0.5-2.0) mmol/L Lactic Acid Fup @ 2Hr (0.5-2.0) mmol/L Lactic Acid Fup @ 4Hr (0.5-2.0) mmol/L Total Bilirubin (0.0-1.0) mg/dL Direct Bilirubin (0.0-0.5) mg/dL AST (5-37) U/L Total Creatine Kinase (38-174) U/L Troponin I High Sens 94.0 H* 70.2 H* (<3.5-35.0) ng/L Total Protein (6.5-8.0) g/dL Urine pH (5.0-8.0) Urine Protein (NEG-TRACE) MG/DL Urine Blood (NEG) Urine Nitrite (NEG) Ur Leukocyte Esterase (NEG) Urine RBC (0) /HPF Urine WBC (0-4) /HPF 07/11/21 07/11/21 07/11/21 Range/Units 18:09 19:20 21:32 WBC (4.8-10.8) X10*3/uL Neut % (Auto) (45-73) % Lymph % (Auto) (20-40) % Lymph # (Auto) (1.2-4.9) X10*3/uL Abs Immat Gran (auto) (0.00-0.03) X10*3/uL Absolute Neuts (auto) (2.0-8.3) X10*3/uL Carbon Dioxide (22-29) mmol/L Anion Gap (12-20) BUN (9-16) mg/dL Creatinine (0.5-1.4) mg/dL Random Glucose (60-115) mg/dL Lactic Acid 7.2 H* (0.5-2.0) mmol/L Lactic Acid Fup @ 2Hr 8.7 H* 6.4 H* (0.5-2.0) mmol/L Lactic Acid Fup @ 4Hr (0.5-2.0) mmol/L Total Bilirubin (0.0-1.0) mg/dL Direct Bilirubin (0.0-0.5) mg/dL AST (5-37) U/L Total Creatine Kinase (38-174) U/L Troponin I High Sens (<3.5-35.0) ng/L Total Protein (6.5-8.0) g/dL Urine pH (5.0-8.0) Urine Protein (NEG-TRACE) MG/DL Urine Blood (NEG) Urine Nitrite (NEG) Ur Leukocyte Esterase (NEG) Urine RBC (0) /HPF Urine WBC (0-4) /HPF 07/12/21 Range/Units 00:19 WBC (4.8-10.8) X10*3/uL Neut % (Auto) (45-73) % Lymph % (Auto) (20-40) % Lymph # (Auto) (1.2-4.9) X10*3/uL Abs Immat Gran (auto) (0.00-0.03) X10*3/uL Absolute Neuts (auto) (2.0-8.3) X10*3/uL Carbon Dioxide (22-29) mmol/L Anion Gap (12-20) BUN (9-16) mg/dL Creatinine (0.5-1.4) mg/dL Random Glucose (60-115) mg/dL Lactic Acid (0.5-2.0) mmol/L Lactic Acid Fup @ 2Hr (0.5-2.0) mmol/L Lactic Acid Fup @ 4Hr 4.4 H* (0.5-2.0) mmol/L Total Bilirubin (0.0-1.0) mg/dL Direct Bilirubin (0.0-0.5) mg/dL AST (5-37) U/L Total Creatine Kinase (38-174) U/L Troponin I High Sens (<3.5-35.0) ng/L Total Protein (6.5-8.0) g/dL Urine pH (5.0-8.0) Urine Protein (NEG-TRACE) MG/DL Urine Blood (NEG) Urine Nitrite (NEG) Ur Leukocyte Esterase (NEG) Urine RBC (0) /HPF Urine WBC (0-4) /HPF Short CBC 07/11/21 Range/Units 15:47 WBC 14.4 H (4.8-10.8) X10*3/uL Hgb 16.5 (14.0-18.0) g/dl Hct 51.4 (42-52) % Plt Count 166 (160-400) X10*3/uL BMP 07/11/21 15:47 Sodium 138 Potassium 5.1 Chloride 101 Carbon Dioxide 21 L BUN 33 H D Creatinine 2.31 H Calcium 9.3 Cardiac Enzymes 07/11/21 Range/Units 15:47 Total Creatine Kinase 4341 H (38-174) U/L Liver Function 07/11/21 Range/Units 15:47 Total Bilirubin 1.6 H (0.0-1.0) mg/dL Direct Bilirubin 0.6 H (0.0-0.5) mg/dL AST 111 H (5-37) U/L ALT 36 (0-40) U/L Alkaline Phosphatase 104 (39-117) U/L Albumin 3.8 (3.5-5.0) g/dL Urine 07/11/21 Range/Units 15:46 Urine Color RED Urine Appearance CLOUDY Urine pH 8.5 H (5.0-8.0) Ur Specific [place] 1.010 (1.005-1.025) Urine Protein 2+ H (NEG-TRACE) MG/DL Urine Glucose (UA) NEG (NEG) MG/DL All other labs normal. Assessment and Plan (1) Bladder stones: Status: Acute (2) Acute urinary retention: Status: Acute (3) ALEAH (acute kidney injury): Status: Acute Combination prostate therapy Beth catheter Imaging in 24 hours Procedures Date of Service Date of Service: 07/12/21
[2021-07-12] MEDS: Finasteride 5 MG TABLET PO (10:18)
[2021-07-12 10:31] LABS: Anion Gap 11 (12-20); Blood Urea Nitrogen 30 mg/dL (9-16); Calcium 7.6 mg/dL (8.4-10.2); Carbon Dioxide 22 mmol/L (22-29); Chloride 106 mmol/L (96-108); Creatinine Clr Calc Pharmacy 57.8; Estimated Glomerular Filt Rate 53; Glucose Random 102 mg/dL (60-115); Potassium 4.2 mmol/L (3.3-5.1); Sodium 135 mmol/L (135-145)
[2021-07-12 11:07] VITALS: BP 137/54; PULSE 80; RESP 22; TEMP 37.8; O2SAT 96
--- NOTE | 2021-07-12 11:29 | P.PNIM_ITS ---
Progress Note: A&P (1) Sepsis due to gram-negative UTI: Status: Acute (2) Rhabdomyolysis: Status: Acute (3) ALEAH (acute kidney injury): Status: Acute (4) Fracture, tibial plateau: Status: Acute (5) Constipation: Status: Acute (6) Bladder stones: Status: Acute Assessment and Plan: 76-year-old man with paraplegia admitted after a fall who developed rhabdomyolysis from being on the floor for 8 hours Mild rhabdomyolysis.? CK slowly trending down Secondary to fall IV fluids Monitor CK daily Monitor renal function Gram negative UTI/chronic Beth catheter.? Chronic UTIs, however reports blockage as this catheter has not been changed recently Will continue Rocephin for now Follow urine culture for final species Lactic acidosis. Likely secondary to rhabdomyolysis Slowly trending down Elevated troponin.? No chest pain Likely secondary to rhabdomyolysis and ALEAH Trend troponin No ischemic changes noted on EKG ALEAH.? Secondary to rhabdomyolysis. trending down Avoid nephrotoxins IV fluids Follow BMP closely Tibial plateau fracture Orthopedic consultation Brace on Pain management Mild hydronephrosis, renal cyst Seen by urology rec repeat renal us in 24 hours start flomax and finesteride Constipation/fecal impaction Fleets enema MiraLax DVT prophylaxis Attending Dr. Kevin Subjective Subjective Date of Service: 07/12/21 Review of Systems Follow up rhabdo, fall Tired today pain to leg Physical Exam Vital Signs: Vital Signs: Last Vital Signs Temp 100.1 F 07/12/21 11:07 Pulse 80 07/12/21 11:07 Resp 22 H 07/12/21 11:07 BP 137/54 L 07/12/21 11:07 Pulse Ox 96 07/12/21 11:07 Body Mass Index 22.5 Appearing in no acute distress lung sounds are clear to auscultation heart regular rate rhythm, clear S1, S2 positive bowel sounds, abdomen is soft, nontender neuro patient is alert x3, no focal deficits Objective Data Current Medications Acetaminophen (Acetaminophen 325 Mg Tablet) 650 mg PO Q6H PRN PRN Reason: Pain, Mild (Pain Scale 1-3) Doxazosin Mesylate (Doxazosin Mesylate 2 Mg Tablet) 4 mg PO BEDTIME [facility]; Protocol Finasteride (Finasteride 5 Mg Tablet) 5 mg PO DAILY [facility] Last Admin: 07/12/21 10:18 Dose: 5 mg Documented by: Heparin Sodium (Porcine) (Heparin Sodium,Porcine 5,000 Unit/Ml Vial) 5,000 unit SUBCUT Q12H [facility] Last Admin: 07/12/21 06:34 Dose: 5,000 unit Documented by: Sodium Chloride (Ns) 1,000 mls @ 100 mls/hr IVCONT .Q10H [facility] Last Admin: 07/12/21 06:35 Dose: 100 mls/hr Documented by: Ceftriaxone Sodium 1 gm/ (Sodium Chloride) 50 mls @ 100 mls/hr IV Q24H [facility] Ondansetron HCl (Ondansetron Hcl 4 Mg/2 Ml Vial) 4 mg IVPUSH Q8H PRN PRN Reason: Nausea and Vomiting Oxycodone HCl (Oxycodone Hcl Immed Release 5 Mg Tablet) 5 mg PO Q4H PRN PRN Reason: pain Pharmacy Consult (Consult Rx Perform Med Rec) 1 each MISCELLANE ONCE PRN PRN Reason: Consult order Polyethylene Glycol (Polyethylene Glycol 3350 17 Gm Powd.Pack) 17 gm PO DAILY [facility] Last Admin: 07/12/21 08:33 Dose: Not Given Documented by: Sodium Chloride (0.9 % Sodium Chloride Flush 3 Ml Syringe) 3 ml IVFLUSH QSHIFT [facility] Last Admin: 07/12/21 09:54 Dose: Not Given Documented by: Labs CBC & Chem 7: 07/12/21 08:35 07/12/21 08:35 Labs: Laboratory Results - last 24 hr 07/11/21 07/11/21 07/11/21 15:46 15:47 15:47 MCV 97.5 MCH 31.3 MCHC 32.1 RDW 13.8 Plt Count 166 MPV 10.2 Immature Gran % (Auto) 0.3 Neut % (Auto) 88.2 H Lymph % (Auto) 4.8 L [place] % (Auto) 6.5 Eos % (Auto) 0.1 Baso % (Auto) 0.1 Lymph # (Auto) 0.7 L [place] # (Auto) 0.9 Eos # (Auto) 0.0 Baso # (Auto) 0.0 Abs Immat Gran (auto) 0.04 H Absolute Neuts (auto) 12.7 H Absolute Nucleated RBC 0.000 Nucleated RBC % (auto) 0.0 Anion Gap 21 H Estim Creat Clear Calc 32.7 Estimated GFR 28 Random Glucose 139 H D Lactic Acid Lactic Acid Fup @ 2Hr Lactic Acid Fup @ 4Hr Calcium 9.3 Magnesium 2.1 Total Bilirubin 1.6 H Direct Bilirubin 0.6 H AST 111 H ALT 36 Alkaline Phosphatase 104 Total Creatine Kinase 4341 H Troponin I High Sens Total Protein 6.4 L Albumin 3.8 Urine Color RED Urine Appearance CLOUDY Urine pH 8.5 H Ur Specific [place] 1.010 Urine Protein 2+ H Urine Glucose (UA) NEG Urine Ketones NEG Urine Blood 3+ H Urine Nitrite POS H Ur Leukocyte Esterase 2+ H Urine RBC 50-75 H Urine WBC 50-75 H Ur Squamous Epith Cells TRACE Urine Bacteria 3+ COVID-19 (JOSE) COVID-19 Helpa Com 07/11/21 07/11/21 07/11/21 15:47 15:47 15:47 MCV MCH MCHC RDW Plt Count MPV Immature Gran % (Auto) Neut % (Auto) Lymph % (Auto) [place] % (Auto) Eos % (Auto) Baso % (Auto) Lymph # (Auto) [place] # (Auto) Eos # (Auto) Baso # (Auto) Abs Immat Gran (auto) Absolute Neuts (auto) Absolute Nucleated RBC Nucleated RBC % (auto) Anion Gap Estim Creat Clear Calc Estimated GFR Random Glucose Lactic Acid 7.6 H* Lactic Acid Fup @ 2Hr Lactic Acid Fup @ 4Hr Calcium Magnesium Total Bilirubin Direct Bilirubin AST ALT Alkaline Phosphatase Total Creatine Kinase Troponin I High Sens 94.0 H* Total Protein Albumin Urine Color Urine Appearance Urine pH Ur Specific [place] Urine Protein Urine Glucose (UA) Urine Ketones Urine Blood Urine Nitrite Ur Leukocyte Esterase Urine RBC Urine WBC Ur Squamous Epith Cells Urine Bacteria COVID-19 (JOSE) Negative COVID-19 Helpa Com See Note 07/11/21 07/11/21 07/11/21 17:29 18:09 19:20 MCV MCH MCHC RDW Plt Count MPV Immature Gran % (Auto) Neut % (Auto) Lymph % (Auto) [place] % (Auto) Eos % (Auto) Baso % (Auto) Lymph # (Auto) [place] # (Auto) Eos # (Auto) Baso # (Auto) Abs Immat Gran (auto) Absolute Neuts (auto) Absolute Nucleated RBC Nucleated RBC % (auto) Anion Gap Estim Creat Clear Calc Estimated GFR Random Glucose Lactic Acid 7.2 H* Lactic Acid Fup @ 2Hr 8.7 H* Lactic Acid Fup @ 4Hr Calcium Magnesium Total Bilirubin Direct Bilirubin AST ALT Alkaline Phosphatase Total Creatine Kinase Troponin I High Sens 70.2 H* Total Protein Albumin Urine Color Urine Appearance Urine pH Ur Specific [place] Urine Protein Urine Glucose (UA) Urine Ketones Urine Blood Urine Nitrite Ur Leukocyte Esterase Urine RBC Urine WBC Ur Squamous Epith Cells Urine Bacteria COVID-19 (JOSE) COVID-19 Clin Com 07/11/21 07/12/21 07/12/21 21:32 00:19 08:35 MCV 94.8 MCH 30.9 MCHC 32.6 RDW 13.2 Plt Count 101 L D MPV 10.2 Immature Gran % (Auto) 0.5 H Neut % (Auto) 82.6 H Lymph % (Auto) 7.5 L [place] % (Auto) 8.0 Eos % (Auto) 1.3 Baso % (Auto) 0.1 Lymph # (Auto) 0.6 L [place] # (Auto) 0.7 Eos # (Auto) 0.1 Baso # (Auto) 0.0 Abs Immat Gran (auto) 0.04 H Absolute Neuts (auto) 7.1 Absolute Nucleated RBC 0.000 Nucleated RBC % (auto) 0.0 Anion Gap Estim Creat Clear Calc Estimated GFR Random Glucose Lactic Acid Lactic Acid Fup @ 2Hr 6.4 H* Lactic Acid Fup @ 4Hr 4.4 H* Calcium Magnesium Total Bilirubin Direct Bilirubin AST ALT Alkaline Phosphatase Total Creatine Kinase Troponin I High Sens Total Protein Albumin Urine Color Urine Appearance Urine pH Ur Specific [place] Urine Protein Urine Glucose (UA) Urine Ketones Urine Blood Urine Nitrite Ur Leukocyte Esterase Urine RBC Urine WBC Ur Squamous Epith Cells Urine Bacteria COVID-19 (JOSE) COVID-19 Clin Com 07/12/21 08:35 MCV MCH MCHC RDW Plt Count MPV Immature Gran % (Auto) Neut % (Auto) Lymph % (Auto) [place] % (Auto) Eos % (Auto) Baso % (Auto) Lymph # (Auto) [place] # (Auto) Eos # (Auto) Baso # (Auto) Abs Immat Gran (auto) Absolute Neuts (auto) Absolute Nucleated RBC Nucleated RBC % (auto) Anion Gap 11 L Estim Creat Clear Calc 57.8 Estimated GFR 53 Random Glucose 102 Lactic Acid Lactic Acid Fup @ 2Hr Lactic Acid Fup @ 4Hr Calcium 7.6 L D Magnesium Total Bilirubin Direct Bilirubin AST ALT Alkaline Phosphatase Total Creatine Kinase 3286 H Troponin I High Sens Total Protein Albumin Urine Color Urine Appearance Urine pH Ur Specific [place] Urine Protein Urine Glucose (UA) Urine Ketones Urine Blood Urine Nitrite Ur Leukocyte Esterase Urine RBC Urine WBC Ur Squamous Epith Cells Urine Bacteria COVID-19 (JOSE) COVID-19 Clin Com Microbiology Microbiology Results: Microbiology 07/11/21 Unknown Urine Catheterized - Beth Catheter Urine Culture - Preliminary Gram negative yue Quality Stroke Does the patient have a stroke diagnosis?: No VTE Prior VTE?: No VTE Risk Level:: Medical - moderate - high VTE Device Contraindication: Treatment Not Indicated VTE Drug Contraindication: N/A - Med Ordered
--- NOTE | 2021-07-12 13:03 | MHC.CM.PN ---
IMM 07/12/21 DX S/P FALL TIB FX ALEAH RHABDO PMH PARAPLEGIC [place]QU[place]. Met with patient in his room. He lives alone with assist from [facility] and [facility]. [facility] 1h/day. A referral requesting resumption of services sent. 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 Preferences obtained. Referrals sent to the patients Justin sifuentes and Kym [facility]. Transport via BLS to home or facility..
[2021-07-12 15:07] VITALS: BP 130/56; PULSE 83; RESP 19; TEMP 36.9; O2SAT 94
[2021-07-12] MEDS: cefTRIAXone sodium 1 GM in 0.9 % Sodium Chloride 50 ML IV (16:12)
[2021-07-12 19:29] VITALS: BP 160/73; PULSE 97; RESP 19; TEMP 37.2; O2SAT 96
[2021-07-12] MEDS: Doxazosin Mesylate 2 MG TABLET 4 MG PO (20:52)
[2021-07-12] MEDS: Acetaminophen 325 MG TABLET 650 MG PO (20:52)
[2021-07-12 23:38] VITALS: BP 114/52; PULSE 87; RESP 18; TEMP 36.8; O2SAT 94
[2021-07-13] VITALS (8 sets, daily range): BP systolic 116–154; BP diastolic 61–76; PULSE 70–92; RESP 18–20; TEMP 35.5–37.4; O2SAT 92–98
[2021-07-13] MEDS: 0.9 % Sodium Chloride 1,000 ML 100 ML IVCONT ×2 (03:27→14:38)
[2021-07-13] MEDS: Heparin Sodium,Porcine 5,000 UNIT/ML VIAL 5000 UNIT SUBCUT (05:14)
[2021-07-13] MEDS: oxyCODONE HCl Immed Release 5 MG TABLET PO ×2 (05:14→17:08)
[2021-07-13 07:05] LABS: Hematocrit 32.4 % (42-52); Hemoglobin 10.5 g/dl (14.0-18.0); Mean Corpuscular HGB Conc 32.4 g/dl (31.0-36.0); Mean Corpuscular Hemoglobin 31.3 pg (27.0-33.0); Mean Corpuscular Volume 96.7 fL (80-98); Mean Platelet Volume 10.2 fL (9.4-12.4); Red Blood Count 3.35 X10*6/uL (4.60-5.80); Red Cell Distribution Width 13.3 % (11.0-16.0); White Blood Count 6.5 X10*3/uL (4.8-10.8)
[2021-07-13 07:06] LABS: Anion Gap 11 (12-20); Blood Urea Nitrogen 23 mg/dL (9-16); Calcium 7.8 mg/dL (8.4-10.2); Carbon Dioxide 24 mmol/L (22-29); Chloride 108 mmol/L (96-108); Creatinine Clr Calc Pharmacy 79.7; Estimated Glomerular Filt Rate > 60; Glucose Random 98 mg/dL (60-115); Platelet Count 83 X10*3/uL (160-400); Potassium 3.7 mmol/L (3.3-5.1); Sodium 139 mmol/L (135-145)
[2021-07-13] MEDS: Finasteride 5 MG TABLET PO (08:49)
--- NOTE | 2021-07-13 10:14 | MHC.CM.PN ---
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
--- NOTE | 2021-07-13 11:18 | MHC.CLN ---
RE: CONSULT NO PRESSURE INJURIES NOTED CONTINUE CURRENT CARE PLAN
--- NOTE | 2021-07-13 12:39 | P.PNIM_ITS ---
Subjective Subjective Date of Service: 07/13/21 Interval History: States right leg pain bothersome; oxycodone ineffective. Mild fatigue but otherwise no acute issues Review of Systems Denies chest pain Denies shortness of breath Denies nausea vomiting diarrhea Physical Exam Vital Signs: Vital Signs: Last Vital Signs Temp 96 F L 07/13/21 11:11 Pulse 70 07/13/21 11:11 Resp 18 07/13/21 11:11 BP 116/61 07/13/21 11:11 Pulse Ox 94 07/13/21 11:11 Body Mass Index 22.5 Const: Other: Awake alert no acute distress HENMT: Other: Oropharynx clear; membranes moist Resp: Other: Clear all osuna; no wheezes rales or rhonchi. Good aeration to the bases Cardio: Other: No S4; positive S1-S2; no S3 no murmurs rubs or gallops GI: Other: Soft nontender nondistended with normoactive bowel sounds. No peritoneal signs Extrem: Other: Right lower extremity brace on secondary a tibial plateau fracture Objective Data Active Medications Acetaminophen (Acetaminophen 325 Mg Tablet) 650 mg PO Q6H PRN PRN Reason: Pain, Mild (Pain Scale 1-3) Last Admin: 07/12/21 20:52 Dose: 650 mg Documented by: AIMEE Doxazosin Mesylate (Doxazosin Mesylate 2 Mg Tablet) 4 mg PO BEDTIME [facility]; Protocol Last Admin: 07/12/21 20:52 Dose: 4 mg Documented by: AIMEE Finasteride (Finasteride 5 Mg Tablet) 5 mg PO DAILY [facility] Last Admin: 07/13/21 08:49 Dose: 5 mg Documented by: DESEAN Heparin Sodium (Porcine) (Heparin Sodium,Porcine 5,000 Unit/Ml Vial) 5,000 unit SUBCUT Q12H [facility] Last Admin: 07/13/21 05:14 Dose: 5,000 unit Documented by: AIMEE Sodium Chloride (Ns) 1,000 mls @ 100 mls/hr IVCONT .Q10H [facility] Last Admin: 07/13/21 08:49 Dose: Not Given Documented by: DESEAN Non-Admin Reason: IV Running Ceftriaxone Sodium 1 gm/ (Sodium Chloride) 50 mls @ 100 mls/hr IV Q24H [facility] Last Infusion: 07/12/21 16:42 Dose: 0 mls/hr Documented by: DESEAN Ondansetron HCl (Ondansetron Hcl 4 Mg/2 Ml Vial) 4 mg IVPUSH Q8H PRN PRN Reason: Nausea and Vomiting Oxycodone HCl (Oxycodone Hcl Immed Release 5 Mg Tablet) 5 mg PO Q4H PRN PRN Reason: pain Last Admin: 07/13/21 05:14 Dose: 5 mg Documented by: AIMEE Pharmacy Consult (Consult Rx Perform Med Rec) 1 each MISCELLANE ONCE PRN PRN Reason: Consult order Polyethylene Glycol (Polyethylene Glycol 3350 17 Gm Powd.Pack) 17 gm PO DAILY [facility] Last Admin: 07/13/21 08:07 Dose: Not Given Documented by: DESEAN Non-Admin Reason: Patient Condition Contraindication Sodium Chloride (0.9 % Sodium Chloride Flush 3 Ml Syringe) 3 ml IVFLUSH QSHIFT [facility] Last Admin: 07/13/21 08:07 Dose: Not Given Documented by: DESEAN Non-Admin Reason: IV Running Labs CBC & Chem 7: 07/13/21 06:12 07/13/21 06:12 Labs: Laboratory Results - last 24 hr 07/13/21 07/13/21 06:12 06:12 MCV 96.7 MCH 31.3 MCHC 32.4 RDW 13.3 Plt Count 83 L MPV 10.2 Absolute Nucleated RBC 0.000 Nucleated RBC % (auto) 0.0 Anion Gap 11 L Estim Creat Clear Calc 79.7 Estimated GFR > 60 Random Glucose 98 Calcium 7.8 L Total Creatine Kinase 2468 H Microbiology Microbiology Results: Microbiology 07/11/21 Unknown Urine Culture - Final Urine Catheterized - Clark Catheter Providencia rettgeri 07/11/21 16:33 Blood Culture - Preliminary Blood - Venous No growth after 24 hours. 07/11/21 15:47 Blood Culture - Preliminary Blood - Venous No growth after 24 hours. Assessment and Plan (1) Rhabdomyolysis: Status: Acute Assessment and Plan: 76-year-old man with paraplegia admitted after a fall who developed rhabdomyolysis from being on the floor for 8 hours 1.Mild rhabdomyolysis; improving IV fluids until CKs normalize S p.o. intake limited Monitor CK/Cr daily 2.UTI; Providencia rettgeri: Catheter inserted 07/11/21 Will continue Rocephin for now; switch to oral therapy when appropriate 3.Lactic acidosis: Resolving with IV fluids Repeat in a.m. 4.ALEAH: Return to baseline. Continue IV fluids; follow creatinine daily 5.Tibial plateau fracture: Continue non weight-bearing status right lower extremity Orthopedic consultation PT consult Pain management; titrate to comfort 6. Hydronephrosis/hydroureter: Renal ultrasound done today demonstrates resolution of hydronephrosis/ hydroureter.. Continue IV fluids/clark pending normalization of tota CK'sl DVT prophylaxis Quality Stroke Does the patient have a stroke diagnosis?: No VTE Prior VTE?: No VTE Risk Level:: Medical - moderate - high VTE Device Contraindication: Treatment Not Indicated VTE Drug Contraindication: N/A - Med Ordered
[2021-07-13 14:00] LABS: Lactic Acid 1.2 mmol/L (0.5-2.0)
[2021-07-13 14:12] LABS: Alanine Aminotransferase 40 U/L (0-40); Albumin Level 2.6 g/dL (3.5-5.0); Alkaline Phosphatase 63 U/L (39-117); Anion Gap 10 (12-20); Aspartate Amino Transferase 92 U/L (5-37); Bilirubin Total 0.7 mg/dL (0.0-1.0); Blood Urea Nitrogen 22 mg/dL (9-16); Calcium 7.9 mg/dL (8.4-10.2); Carbon Dioxide 26 mmol/L (22-29); Chloride 108 mmol/L (96-108); Creatinine Clr Calc Pharmacy 83.2; Estimated Glomerular Filt Rate > 60; Glucose Fasting 111 mg/dL (60-99); Potassium 3.8 mmol/L (3.3-5.1); Sodium 140 mmol/L (135-145); Total Protein 4.6 g/dL (6.5-8.0)
[2021-07-13] MEDS: cefTRIAXone sodium 1 GM in 0.9 % Sodium Chloride 50 ML IV (14:39)
[2021-07-13] MEDS: Acetaminophen 325 MG TABLET 650 MG PO (19:11)
[2021-07-13] MEDS: oxyCODONE HCl Immed Release 5 MG TABLET 10 MG PO (23:24)
[2021-07-13] MEDS: Doxazosin Mesylate 2 MG TABLET 4 MG PO (23:25)
[2021-07-13] MEDS: Gabapentin 300 MG CAPSULE 900 MG PO (23:25)
[2021-07-14] VITALS (10 sets, daily range): BP systolic 98–151; BP diastolic 50–65; PULSE 72–86; RESP 12–20; TEMP 36.2–37.1; O2SAT 90–97
[2021-07-14] MEDS: 0.9 % Sodium Chloride 1,000 ML 100 ML IVCONT ×2 (02:09→11:11)
[2021-07-14 05:59] LABS: MANUAL DIFF FLAG NO
[2021-07-14 06:08] LABS: Basophils Percent Auto 0.2 % (0-2); Eosinophils Absolute Auto 0.2 X10*3/uL (0.0-0.4); Eosinophils Percent Auto 4.6 % (0-4); Hematocrit 30.2 % (42-52); Hemoglobin 9.6 g/dl (14.0-18.0); Imm Gran Abs Auto 0.02 X10*3/uL (0.00-0.03); Imm Gran Pct Auto 0.4 % (0.0-0.4); Lymphocytes Absolute Auto 0.6 X10*3/uL (1.2-4.9); Lymphocytes Percent Auto 11.8 % (20-40); Mean Corpuscular HGB Conc 31.8 g/dl (31.0-36.0); Mean Corpuscular Hemoglobin 30.4 pg (27.0-33.0); Mean Corpuscular Volume 95.6 fL (80-98); Mean Platelet Volume 10.5 fL (9.4-12.4); Monocytes Absolute Auto 0.4 X10*3/uL (0.1-1.2); Monocytes Percent Auto 8.2 % (2-11); Neutrophils Absolute Auto 3.8 X10*3/uL (2.0-8.3); Neutrophils Percent Auto 74.8 % (45-73); Red Blood Count 3.16 X10*6/uL (4.60-5.80); Red Cell Distribution Width 13.1 % (11.0-16.0)
[2021-07-14 06:13] LABS: Platelet Count 89 X10*3/uL (160-400)
[2021-07-14] MEDS: oxyCODONE HCl Immed Release 5 MG TABLET 10 MG PO ×2 (06:35→11:13)
--- NOTE | 2021-07-14 09:14 | P.CDIC_ITS ---
CDI Concurrent Query Documentation Clarification: PHYSICIAN'S DOCUMENTATION REQUEST Date of Query: 07/14/21 0915 Patient Name: Jorge Alberto Dasilva Admit Date: 07/11/21 Dear Doctor, A review of the medical record indicates additional documentation may be indicated. Please review below and update the documentation accordingly. Clinical Indicators: Current documentation includes a diagnosis of UTI. Additional clinical indicators in the record include: Risk Factors/Clinical Indicators/Treatments Patient has a chronic clark catheter and hasnt been changed for 1.5 weeks. Reports blockage, cloudy urine, nitrite + leukocyte + red urine Spinal cord injury, paraplegia. Please provide further specificity regarding the site, etiology, acuity, and known or suspected organism: * UTI due to Chronic clark catheter or other etiology * Other (please specify) * Unable to determine site * Indicate known or suspected organism * E-coli * Klebsiella * Rain * Other (please specify) Providencia rettgen * Indicate if associated with hematuria * Indicate if associated with a device, specify if Clark cath, suprapubic cath, etc. Use of terms such as suspected, likely, concern for, or probable (associated with a specific diagnosis that is being evaluated, monitored, or treated as if it exists) are acceptable and can be coded in the inpatient setting, when documented at the time of discharge. Thank you, Sarah Sunshine [facility], CDIS Extension: [phone] Please use your independent medical judgment in providing your response. THIS QUERY IS PART OF THE PERMANENT MEDICAL RECORD Provider Response: Other Other Diagnosis: UTI associated with chronic indwelling Clark catheter which was changed 07/11/2021. Organism of Providencia rettgeri treated with ceftriaxone
[2021-07-14] MEDS: polyethylene glycoL 3350 17 GM POWD.PACK PO (09:53)
[2021-07-14] MEDS: Acetaminophen 325 MG TABLET 650 MG PO (09:53)
[2021-07-14] MEDS: Gabapentin 300 MG CAPSULE 900 MG PO ×2 (09:54→21:39)
[2021-07-14] MEDS: Finasteride 5 MG TABLET PO (09:55)
--- NOTE | 2021-07-14 12:08 | PC.NURSE ---
Skin/Wound assessment completed today. Patient has skin tears to left upper arm, right elbow, right great toe. Abrasions to right back and left 5th toe. Xeroform applied to all wounds covered with band-aids, foam dressing. A laceration to bridge of nose which is now scabbed/healed.
[2021-07-14] MEDS: Morphine Sulfate 4 MG/ML CARTRIDGE IVPUSH ×2 (13:34→21:43)
[2021-07-14] MEDS: 0.9 % Sodium Chloride Flush 3 ML SYRINGE IVFLUSH ×2 (13:35→21:40)
--- NOTE | 2021-07-14 16:51 | HO.PM.IMPN ---
Subjective Subjective Date of Service: 07/14/21 Interval History: States TGN painful; oxycodone ineffective. Mild fatigue but otherwise no acute issues. Review of Systems Denies chest pain Denies shortness of breath Denies nausea vomiting diarrhea Physical Exam Vital Signs: Vital Signs: Last Vital Signs Temp 98.7 F 07/14/21 16:00 Pulse 72 07/14/21 16:00 Resp 12 07/14/21 16:00 BP 98/54 L 07/14/21 16:00 Pulse Ox 90 L 07/14/21 16:00 Body Mass Index 22.5 Const: Other: Awake alert no acute distress HENMT: Other: Oropharynx clear; membranes moist Resp: Other: Clear all osuna; no wheezes rales or rhonchi. Good aeration to the bases Cardio: Other: No S4; positive S1-S2; no S3 no murmurs rubs or gallops GI: Other: Soft nontender nondistended with normoactive bowel sounds. No peritoneal signs Extrem: Other: Right lower extremity brace on secondary a tibial plateau fracture Objective Data Active Medications Acetaminophen (Acetaminophen 325 Mg Tablet) 650 mg PO Q6H PRN PRN Reason: Pain, Mild (Pain Scale 1-3) Last Admin: 07/14/21 09:53 Dose: 650 mg Documented by: VERENIEC Doxazosin Mesylate (Doxazosin Mesylate 2 Mg Tablet) 4 mg PO BEDTIME [facility]; Protocol Last Admin: 07/13/21 23:25 Dose: 4 mg Documented by: SHILPA Finasteride (Finasteride 5 Mg Tablet) 5 mg PO DAILY [facility] Last Admin: 07/14/21 09:55 Dose: 5 mg Documented by: VERENICE Gabapentin (Gabapentin 300 Mg Capsule) 900 mg PO BID [facility] Last Admin: 07/14/21 09:54 Dose: 900 mg Documented by: VERENICE Heparin Sodium (Porcine) (Heparin Sodium,Porcine 5,000 Unit/Ml Vial) 5,000 unit SUBCUT Q12H [facility] Last Admin: 07/14/21 05:18 Dose: Not Given Documented by: SHILPA Non-Admin Reason: Patient Refused Sodium Chloride (Ns) 1,000 mls @ 100 mls/hr IVCONT .Q10H [facility] Last Admin: 07/14/21 13:34 Dose: Not Given Documented by: VERENICE Non-Admin Reason: IV Running Ceftriaxone Sodium 1 gm/ (Sodium Chloride) 50 mls @ 100 mls/hr IV Q24H [facility] Last Infusion: 07/13/21 15:22 Dose: 0 mls/hr Documented by: DESEAN Morphine Sulfate (Morphine Sulfate 4 Mg/Ml Cartridge) 4 mg IVPUSH Q4H PRN; Protocol PRN Reason: Pain not relieved by oxycodone Last Admin: 07/14/21 13:34 Dose: 4 mg Documented by: VERENICE Ondansetron HCl (Ondansetron Hcl 4 Mg/2 Ml Vial) 4 mg IVPUSH Q8H PRN PRN Reason: Nausea and Vomiting Oxycodone HCl (Oxycodone Hcl Immed Release 5 Mg Tablet) 10 mg PO Q4H PRN PRN Reason: trigeminal neuralgia pain Last Admin: 07/14/21 11:13 Dose: 10 mg Documented by: VERENICE Pharmacy Consult (Consult Rx Perform Med Rec) 1 each MISCELLANE ONCE PRN PRN Reason: Consult order Polyethylene Glycol (Polyethylene Glycol 3350 17 Gm Powd.Pack) 17 gm PO DAILY [facility] Last Admin: 07/14/21 09:53 Dose: 17 gm Documented by: VERENICE Sodium Chloride (0.9 % Sodium Chloride Flush 3 Ml Syringe) 3 ml IVFLUSH QSHIFT [facility] Last Admin: 07/14/21 13:35 Dose: 3 ml Documented by: VERENICE Labs CBC & Chem 7: 07/14/21 05:47 07/13/21 13:43 Labs: Laboratory Results - last 24 hr 07/14/21 05:47 MCV 95.6 MCH 30.4 MCHC 31.8 RDW 13.1 Plt Count 89 L MPV 10.5 Immature Gran % (Auto) 0.4 Neut % (Auto) 74.8 H Lymph % (Auto) 11.8 L [place] % (Auto) 8.2 Eos % (Auto) 4.6 H Baso % (Auto) 0.2 Lymph # (Auto) 0.6 L [place] # (Auto) 0.4 Eos # (Auto) 0.2 Baso # (Auto) 0.0 Abs Immat Gran (auto) 0.02 Absolute Neuts (auto) 3.8 Absolute Nucleated RBC 0.000 Nucleated RBC % (auto) 0.0 Microbiology Microbiology Results: Microbiology 10/04/21 16:33 Blood Culture - Preliminary Blood - Venous No growth after 48 hours. 07/11/21 15:47 Blood Culture - Preliminary Blood - Venous No growth after 48 hours. Assessment and Plan (1) Rhabdomyolysis: Status: Acute Assessment and Plan: 76-year-old man with paraplegia admitted after a fall who developed rhabdomyolysis from being on the floor for 8 hours 1.Mild rhabdomyolysis; improving IV fluids until CKs normalize S p.o. intake limited: States approximately 8 oz of water at home per day if ?good day? Monitor CK/Cr daily/Total CK's 2.UTI; Providencia rettgeri: Catheter inserted 07/11/21 Will continue Rocephin for now; switch to oral therapy when appropriate 3.Lactic acidosis: Resolving with IV fluids Repeat in a.m. 4.ALEAH: Return to baseline. Continue IV fluids; follow creatinine daily 5.Tibial plateau fracture: Continue non weight-bearing status right lower extremity Orthopedic consultation PT consult Pain management; titrate to comfort 6. Hydronephrosis/hydroureter: Renal ultrasound done today demonstrates resolution of hydronephrosis/ hydroureter.. Continue IV fluids/clark pending normalization of tota CK'sl DVT prophylaxis Quality Stroke Does the patient have a stroke diagnosis?: No VTE Prior VTE?: No VTE Risk Level:: Medical - moderate - high VTE Device Contraindication: Treatment Not Indicated VTE Drug Contraindication: N/A - Med Ordered
[2021-07-14] MEDS: Heparin Sodium,Porcine 5,000 UNIT/ML VIAL 5000 UNIT SUBCUT (17:20)
[2021-07-14] MEDS: cefTRIAXone sodium 1 GM in 0.9 % Sodium Chloride 50 ML IV (17:20)
--- NOTE | 2021-07-14 17:27 | PC.NURSE ---
NOTIFIED OF UNCONTROLLED 10 PAIN. PRN MORPHINE ORDERED AND ADMINISTERED AT 1334. PATIENT HAS BEEN SLEEPING SOUNDLY EVER SINCE. WILL CONTINUE TO MONITOR.
--- NOTE | 2021-07-14 17:35 | PC.NURSE ---
PATIENTS BROUGHT IN HIS DENTURES, HEADPHONES, AND A BLANKET. PLACED BEDSIDE AND UPDATED BELONGINGS LIST.
[2021-07-14 18:07] LABS: Lactic Acid 0.8 mmol/L (0.5-2.0)
[2021-07-14 18:14] LABS: Alanine Aminotransferase 40 U/L (0-40); Albumin Level 2.4 g/dL (3.5-5.0); Alkaline Phosphatase 60 U/L (39-117); Anion Gap 10 (12-20); Aspartate Amino Transferase 72 U/L (5-37); Bilirubin Total 0.5 mg/dL (0.0-1.0); Blood Urea Nitrogen 10 mg/dL (9-16); Calcium 7.8 mg/dL (8.4-10.2); Carbon Dioxide 25 mmol/L (22-29); Chloride 109 mmol/L (96-108); Creatinine Clr Calc Pharmacy 102.3; Estimated Glomerular Filt Rate > 60; Glucose Fasting 105 mg/dL (60-99); Potassium 3.5 mmol/L (3.3-5.1); Sodium 140 mmol/L (135-145); Total Protein 4.2 g/dL (6.5-8.0)
[2021-07-14] MEDS: Doxazosin Mesylate 2 MG TABLET 4 MG PO (21:39)
[2021-07-15 03:19] VITALS: BP 123/58; PULSE 81; RESP 18; TEMP 36.5; O2SAT 95
[2021-07-15 06:41] LABS: MANUAL DIFF FLAG NO
[2021-07-15 06:49] LABS: Basophils Percent Auto 0.2 % (0-2); Eosinophils Absolute Auto 0.2 X10*3/uL (0.0-0.4); Hemoglobin 9.2 g/dl (14.0-18.0); Imm Gran Abs Auto 0.03 X10*3/uL (0.00-0.03); Imm Gran Pct Auto 0.7 % (0.0-0.4); Lymphocytes Absolute Auto 0.4 X10*3/uL (1.2-4.9); Lymphocytes Percent Auto 9.7 % (20-40); Mean Corpuscular HGB Conc 31.7 g/dl (31.0-36.0); Mean Corpuscular Hemoglobin 30.6 pg (27.0-33.0); Mean Corpuscular Volume 96.3 fL (80-98); Mean Platelet Volume 9.5 fL (9.4-12.4); Monocytes Absolute Auto 0.5 X10*3/uL (0.1-1.2); Neutrophils Absolute Auto 2.9 X10*3/uL (2.0-8.3); Neutrophils Percent Auto 72.4 % (45-73); Platelet Count 110 X10*3/uL (160-400); Red Blood Count 3.01 X10*6/uL (4.60-5.80); Red Cell Distribution Width 13.2 % (11.0-16.0)
[2021-07-15 07:38] VITALS: BP 136/65; PULSE 85; RESP 18; TEMP 36.8; O2SAT 96
[2021-07-15] MEDS: Gabapentin 300 MG CAPSULE 900 MG PO (09:30)
[2021-07-15] MEDS: Morphine Sulfate 4 MG/ML CARTRIDGE IVPUSH ×2 (09:31→14:53)
[2021-07-15] MEDS: Finasteride 5 MG TABLET PO (09:32)
[2021-07-15] MEDS: 0.9 % Sodium Chloride Flush 3 ML SYRINGE IVFLUSH (09:38)
[2021-07-15 12:00] VITALS: BP 142/64; PULSE 79; RESP 18; TEMP 36.6; O2SAT 95
[2021-07-15] MEDS: Acetaminophen 325 MG TABLET 650 MG PO (12:17)
[2021-07-15] MEDS: oxyCODONE HCl Immed Release 5 MG TABLET 10 MG PO (12:17)
--- NOTE | 2021-07-15 14:43 | PM.DS ---
DS: Providers Provider Date of Service: 07/15/21 Date of admission: 07/11/21 17:14 Date of discharge: 07/15/21 Primary care physician: Phillip Gates MD Consults: 07/11/21 17:52 Consult to Orthopedics Routine Consulting Provider: Israel Gay Reason for consultation: tibial fracture Has provider been notified: No Consult to Urology Routine Consulting Provider: Deandre Huang Reason for consultation: hydronephrosis Has provider been notified: No DS: Diagnosis Discharge Diagnosis (1) Rhabdomyolysis: Status: Acute (2) Fracture, tibial plateau: Status: Acute DS: Summary Hospital Course Hospital Course: 76year old man presenting after falling from his wheelchair last night. He was on the floor for about 8-9 hours and finally was able to get someone's attention after yelling for some time. He reported? right leg pain and knee x-ray showed right proximal tibial fracture involving the lateral tibial plateau and fibular head fracture.? Abdominal CT showed large bladder stone with mild bilateral hydronephrosis and proximal ureteral dilatation with constipation and fecal impaction noted as well.? He denied chest pain, shortness of breath, nausea, vomiting, diarrhea.? Has very limited function of his lower extremities as he does have a cervical spine injury from previous time.? He was noted to have an elevation in his CK at 4341 as well as his troponin with no ischemic changes on EKG Hospital course Beth catheter changed in the ER; drained well. Initial elevation in creatinine with postrenal; creatinine and decreased from 2.31 on the day of admission to 1.31 with 24 hours later with Beth decompression. Kidney function continued to be within normal limits. He was continued on IV fluids and his CKs have trended downward without issue. Major problem arise from his trigeminal neuralgia; gabapentin was titrated and oxycodone was added for both leg pain and trigeminal pain. Ortho was consult on phone and stated only knee brace nonweightbearing for 6 weeks. Needs to follow up with Ortho as outpatient. He is at this time medically stable for discharge to SNF Time Spent with Patient Time attestation: Total time spent providing and/or coordinating discharge services: Discharge coordination time: Greater than 30 minutes Quality: Stroke Does the patient have a stroke diagnosis?: No Physical Exam Vital Signs: Vital Signs: Last Vital Signs Temp 97.8 F 07/15/21 12:00 Pulse 79 10/08/21 12:00 Resp 18 07/15/21 12:00 BP 142/64 H 07/15/21 12:00 Pulse Ox 95 07/15/21 12:00 Body Mass Index 22.5 Resp: Other: Clear to auscultation bilaterally; good aeration to bases. No rales rhonchi or wheezes Cardio: Other: No S4; positive S1-S2; no S3 murmurs rubs or gallops GI: Other: Soft nontender nondistended with normoactive bowel sounds x4 quadrants. No peritoneal signs Extrem: Other: Bilateral foot contractures with 2+ edema bilaterally. Knee brace on right lower extremity DS: Data Data Completed and Pending Labs on day of discharge: Laboratory Results - last 24 hr 07/14/21 07/14/21 07/15/21 17:34 17:34 05:51 WBC 4.0 L RBC 3.01 L Hgb 9.2 L Hct 29.0 L MCV 96.3 MCH 30.6 MCHC 31.7 RDW 13.2 Plt Count 110 L MPV 9.5 Immature Gran % (Auto) 0.7 H Neut % (Auto) 72.4 Lymph % (Auto) 9.[address] [place] % (Auto) 12.0 H Eos % (Auto) 5.0 H Baso % (Auto) 0.2 Lymph # (Auto) 0.[address] [place] # (Auto) 0.5 Eos # (Auto) 0.2 Baso # (Auto) 0.0 Abs Immat Gran (auto) 0.03 Absolute Neuts (auto) 2.9 Absolute Nucleated RBC 0.000 Nucleated RBC % (auto) 0.0 Sodium 140 Potassium 3.5 Chloride 109 H Carbon Dioxide 25 Anion Gap 10 L BUN 10 D Creatinine 0.74 Estim Creat Clear Calc 102.3 Estimated GFR > 60 Fasting Glucose 105 H Lactic Acid 0.8 Calcium 7.8 L Total Bilirubin 0.5 AST 72 H ALT 40 Alkaline Phosphatase 60 Total Creatine Kinase Total Protein 4.2 L Albumin 2.4 L 07/15/21 05:51 WBC RBC Hgb Hct MCV MCH MCHC RDW Plt Count MPV Immature Gran % (Auto) Neut % (Auto) Lymph % (Auto) [place] % (Auto) Eos % (Auto) Baso % (Auto) Lymph # (Auto) [place] # (Auto) Eos # (Auto) Baso # (Auto) Abs Immat Gran (auto) Absolute Neuts (auto) Absolute Nucleated RBC Nucleated RBC % (auto) Sodium Potassium Chloride Carbon Dioxide Anion Gap BUN Creatinine Estim Creat Clear Calc Estimated GFR Fasting Glucose Lactic Acid Calcium Total Bilirubin AST ALT Alkaline Phosphatase Total Creatine Kinase 502 H D Total Protein Albumin Preliminary micro results at discharge 07/11/21 16:33 Blood Culture - Preliminary Blood - Venous No growth after 48 hours. 07/11/21 15:47 Blood Culture - Preliminary Blood - Venous No growth after 48 hours. Discharge Plan Discharge Anticipated Discharge Date/Time: 07/15/21 14:33 Patient Disposition: Xfer Inpatient Rehab Fac Discharge Diagnosis: Rhabdomyolysis Referrals: Phillip Gates MD [Primary Care Provider] - 1 Week Discharge Medications: New finasteride [Proscar] 5 mg Tablet 5 mg PO DAILY Qty: 30 RF: 0 oxycodone 10 mg tablet 10 mg PO Q4H PRN (Reason: pain) Qty: 30 RF: 0 cefuroxime axetil 250 mg tablet 250 mg PO BID 10 Days Qty: 20 RF: 0 Continued gabapentin 800 mg tablet 1 tab PO BID PRN (Reason: Pain) RF: 0 Discontinued oxycodone 5 mg tablet 5 mg PO Q8H PRN (Reason: pain) Qty: 8 RF: 0 Discharge Orders: Discharge Order (Routine); Ordered 07/15/21 Ordered By: Loki Reagan Diet: regular diet Activity on Discharge: TERESITA MICHAEL Stand Alone Forms: Patient Portal Discharge page Care Plan Goals: Increase independent function Health Concerns: Pain control Plan of Treatment: Pain control Assessment: Short-term rehab
[2021-07-15] MEDS: cefTRIAXone sodium 1 GM in 0.9 % Sodium Chloride 50 ML IV (16:12)
== END 2021-07-15 18:11 | DRG 699 ==
LOC: HO.ED 16:36 → HO.EDOVER 17:28 → HO.IMC 17:58
PROVIDERS: Admitting Provider Nurse Practitioner Acute Care; Emergency Provider Emergency Medicine; PCP Internal Medicine; Visit Provider Hospitalist
DX: T83.511A Infection and inflammatory reaction due to indwelling urethral catheter, initial encounter (principal); S82.141A Displaced bicondylar fracture of right tibia, initial encounter for closed fracture; N13.6 Pyonephrosis; G82.20 Paraplegia, unspecified; N17.9 Acute kidney failure, unspecified; E87.2 Acidosis; T79.6XXA Traumatic ischemia of muscle, initial encounter; Y93.9 Activity, unspecified; W05.0XXA Fall from non-moving wheelchair, initial encounter; N28.1 Cyst of kidney, acquired; K59.00 Constipation, unspecified; G50.0 Trigeminal neuralgia; N21.0 Calculus in bladder; Y92.009 Unspecified place in unspecified non-institutional (private) residence as the place of occurrence of the external cause; Z20.822 Contact with and (suspected) exposure to COVID-19; Z87.440 Personal history of urinary (tract) infections; Z87.891 Personal history of nicotine dependence; Z79.899 Other long term (current) drug therapy
CPT/HCPCS: 36415; 51798; 71045; 73564; 73610; 73630; 74176; 76775; 80048; 80053; 80076; 81001; 81003; 82550; 83605; 83735; 84484; 85025; 85027; 87040; 87086; 87088; 87186; 87635; 93005; 96361; 96365; 97110; 97162; 99285; 99291; J0696; J2270

== ENCOUNTER → 2021-08-15 15:02 | Outpatient (BNVA) | payer MEDICARE, SELFPAY | PROVIDERS: PCP Internal Medicine; Visit Provider Physician Assistant | DX: S82.141A Displaced bicondylar fracture of right tibia, initial encounter for closed fracture (principal) | CPT/HCPCS: 99212 ==

== ENCOUNTER 2021-09-22 00:38 | Emergency (ER) | payer MEDICARE, SELFPAY ==
--- NOTE | ~2021-09-22 | XR_ITS ---
EXAMINATION: XR CHEST CLINICAL INFORMATION: Fever COMPARISON: 07/11/2021 TECHNIQUE: Frontal view of the chest was obtained. FINDINGS: The lungs are well expanded. Mild bronchial wall thickening noted bilaterally. No pleural effusion or pneumothorax. No dense consolidation. The cardiomediastinal silhouette is within normal limits of size. XR/XR chest 1V IMPRESSION: No dense consolidation. Bronchial wall thickening can be seen with a small airways process such as asthma or atypical/viral infection.
--- NOTE | ~2021-09-22 | CT_ITS ---
EXAMINATION: CT ABDOMEN AND PELVIS WITH CONTRAST CLINICAL INFORMATION: Left lower quadrant pain COMPARISON: 07/11/2021 TECHNIQUE: Multidetector volumetric images were obtained from the superior aspect of the liver through the pubic symphysis following administration 85 mL of Omnipaque 350 intravenous contrast. Sagittal and coronal reformatted images were obtained on the technologist's workstation. Oral contrast: No This CT examination was performed using dose optimization techniques as appropriate, variously including the following: *Automated exposure control *Adjustment of mA and/or kV according to patient size (this includes techniques or standardized protocols for targeted exams where dose is matched to indication/reason for exam; i.e. extremities or head) *Use of iterative reconstruction technique DLP: 732 mGy-cm FINDINGS: LUNG BASES: Bibasilar atelectasis. Coronary artery calcifications. LIVER, GALLBLADDER, AND BILIARY TREE: The liver is normal in size, shape, and attenuation. No focal hepatic lesion or biliary ductal dilatation is present. No stones are seen. Motion limits the evaluation of the gallbladder. Questionable stranding along the gallbladder. PANCREAS: Unremarkable. SPLEEN: Unremarkable. ADRENAL GLANDS: Unremarkable. KIDNEYS AND URETERS: The kidneys are normal in size, shape, and attenuation. No hydronephrosis, hydroureter, or calculi seen. No perinephric stranding. Prominent exophytic anterior right simple renal cyst measures 8 cm. No follow-up imaging recommended. BLADDER: Decompressed with Beth catheter in place. Bladder calculus noted. GASTROINTESTINAL TRACT: The stomach is unremarkable. Normal caliber small bowel. No obstruction. Mild colonic stool burden. Mild rectal wall thickening noted, though this may be chronic as there is no adjacent inflammation. Normal appendix. No free air or free fluid. ABDOMINAL WALL: No significant hernia is appreciated. LYMPH NODES: Normal. VASCULAR: Normal caliber aorta with moderate atherosclerotic calcification. PELVIC VISCERA: The prostate and seminal vesicles are unremarkable. OSSEOUS STRUCTURES: No acute or suspicious osseous abnormality. Osteopenia. Diffuse bridging osteophytes throughout the visualized spine. Advanced degenerative changes of the hips. CT/CT abdomen pelvis w con IMPRESSION: Limited evaluation of the gallbladder due to motion. Questionable inflammatory stranding adjacent to the gallbladder. If there is concern for cholecystitis suggest ultrasound evaluation. Mild wall thickening of the rectum may be chronic. Proctitis is possible. Fleischner guidelines were followed.
[2021-09-22 00:43] VITALS: BP 111/57; PULSE 60; RESP 20; TEMP 36.8; O2SAT 95; BMI 25.4
--- NOTE | 2021-09-22 00:51 | ECG_ITS ---
Test Reason : covid Blood Pressure : / mmHG Vent. Rate : 060 BPM Atrial Rate : 060 BPM P-R Int : 160 ms QRS Dur : 068 ms QT Int : 446 ms P-R-T Axes : 065 009 037 degrees QTc Int : 446 ms Normal sinus rhythm Junctional ST depression, probably abnormal Abnormal ECG When compared with ECG of 11-JUL-2021 16:03, Criteria for Inferior infarct are no longer Present ST no longer depressed in Lateral leads T wave inversion less evident in Anterior leads Referred By: Guillermina Ndiaye Electronically Signed By:JARED PAYAN MD
--- NOTE | 2021-09-22 01:00 | ED_ITS ---
HPI - Abdominal Pain General Chief Complaint: Abdominal Pain Stated Complaint: left lower abd pain Time Seen by Provider: 09/22/21 00:43 Source: patient and EMS Mode of arrival: EMS Limitations: other (Hard of hearing) History of Present Illness HPI narrative: Patient comes to the emergency room complaining left lower quadrant pain. Patient states that the last time that he had left lower quadrant pain, he was diagnosed with a UTI. Patient has a chronic indwelling Beth catheter. Patient denies flank pain, no fever chills, no nausea or vomiting. Related Data Home Medications Medication Instructions Recorded Confirmed gabapentin 800 mg tablet 1 tab PO BID PRN 04/01/21 07/11/21 Previous Rx's Medication Instructions Recorded cefuroxime axetil 250 mg tablet 250 mg PO BID 10 Days #20 tab 07/15/21 finasteride 5 mg tablet (Proscar) 5 mg PO DAILY #30 tab 07/15/21 oxycodone 10 mg tablet 10 mg PO Q4H PRN #30 tab 07/15/21 Allergies Allergy/AdvReac Type Severity Reaction Status Date / Time No Known Allergies Allergy Verified 08/14/20 23:40 [No Known Allergies*] Review of Systems Review of Systems Constitutional : No Weight loss, No Fever, No Chills, No Night Sweats, No Fatigue, No Malaise ENT/Mouth : No Hearing loss, No Ear Pain, No Nasal Congestion, No Sinus Pain, No Hoarseness, No sore throat, No Rhinorrhea, No Swallowing Difficulty Eyes: No Eye Pain, No Swelling, No Redness, No Foreign Body, No Discharge, No Vision Changes Cardiovascular : No Chest Pain, No SOB, No Dyspnea on Exertion, No Orthopnea, No Edema, No Palpitations Respiratory : No Cough, No Sputum, No Wheezing, No Smoke Exposure, No Dyspnea Gastrointestinal : No Nausea, No Vomiting, No Diarrhea, No Constipation, c omplaining of left lower quadrant pain since this morning. No Hematochezia, No Melena Genitourinary : no irregular bleeding, No Dysuria, has chronic Beth catheter in place, No Urinary Frequency, No Hematuria, No Urinary Incontinence, No Urgency, No Flank Pain, No Urinary Flow Changes, No Hesitancy Musculoskeletal : No joint pain, No Myalgias, No Joint Swelling Skin : No Skin Lesions, No rash Neuro : No Weakness, No Numbness, No Paresthesias, No Loss of Consciousness, No Dizziness, No Headache Psych : No Anxiety/Panic, No Depression, No SI/HI/AH/VH, No Social Issues, Heme/Lymph: No Bruising, No Bleeding,No Lymphadenopathy Endocrine : No Polyuria, No Polydipsia, No Temperature Intolerance Physical Exam Vital Signs: Vital Signs: Last Vital Signs Temp 100.8 F H 09/22/21 01:50 Pulse 60 09/22/21 00:43 Resp 20 09/22/21 00:43 BP 111/57 L 09/22/21 00:43 Pulse Ox 95 09/22/21 00:43 BMI result Body Mass Index 25.4 Const: Other: Appearance: Alert. Oriented X3. No acute distress. Eyes: Pupils equal, round and reactive to light. ENT: Pharynx normal. Very hard of hearing Neck: Normal inspection. Neck supple. No lymph nodes noted. No crepitus CVS: Normal heart rate and rhythm. Pulses normal. Normal S1 and S2 Respiratory: No respiratory distress. Breath sounds normal. No Wheezing. No rales Abdomen: Soft , moderate tenderness to palpation over the left lower quadrant. No rigidity. Slight diffuse abdominal distension Skin: Skin warm and dry. Normal skin color. Normal skin turgor. Extremities: No Lacerations. No Rash Neuro: Oriented X 3. No motor deficit. No sensory deficit. Moving all extermities. No slurred speech. 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 Patient is being given IV fluids and 1 dose of IV ceftriaxone Other labs are still pending including urinalysis. Sign-out given to Dr. Bailon [facility] - Abdominal Pain Lab Data Result diagrams: 09/22/21 01:44 09/22/21 01:44 Labs: Lab Results 09/22/21 09/22/21 09/22/21 Range/Units 01:42 01:44 01:44 WBC 4.9 (4.8-10.8) X10*3/uL RBC 3.74 L (4.60-5.80) X10*6/uL Hgb 10.1 L (14.0-18.0) g/dl Hct 33.4 L (42.0-52.0) % MCV 89.3 (80.0-98.0) fL MCH 27.0 (27.0-33.0) pg MCHC 30.2 L (31.0-36.0) g/dl RDW 14.6 (11.0-16.0) % Plt Count 233 (160-400) X10*3/uL MPV 9.8 (9.4-12.4) fL Immature Gran % (Auto) 0.2 (0.0-0.4) % Neut % (Auto) 82.3 H (45-73) % Lymph % (Auto) 9.7 L (20-40) % [place] % (Auto) 6.8 (2-11) % Eos % (Auto) 0.8 (0-4) % Baso % (Auto) 0.2 (0-2) % Lymph # (Auto) 0.5 L (1.2-4.9) X10*3/uL [place] # (Auto) 0.3 (0.1-1.2) X10*3/uL Eos # (Auto) 0.0 (0.0-0.4) X10*3/uL Baso # (Auto) 0.0 (0.0-0.2) X10*3/uL Abs Immat Gran (auto) 0.01 (0.00-0.03) X10*3/uL Absolute Neuts (auto) 4.0 (2.0-8.3) x10*3/uL Absolute Nucleated RBC 0.000 (0.0-0.012) X10*3/uL Nucleated RBC % (auto) 0.0 (0.0-0.2) /100WBC PT 14.8 H (9.9-13.0) SEC INR 1.3 H (0.9-1.1) Lactic Acid (0.5-2.0) mmol/L COVID-19 (JOSE) Positive A (Negative) COVID-19 Clin Com See Note 09/22/21 Range/Units 01:44 WBC (4.8-10.8) X10*3/uL RBC (4.60-5.80) X10*6/uL Hgb (14.0-18.0) g/dl Hct (42.0-52.0) % MCV (80.0-98.0) fL MCH (27.0-33.0) pg MCHC (31.0-36.0) g/dl RDW (11.0-16.0) % Plt Count (160-400) X10*3/uL MPV (9.4-12.4) fL Immature Gran % (Auto) (0.0-0.4) % Neut % (Auto) (45-73) % Lymph % (Auto) (20-40) % [place] % (Auto) (2-11) % Eos % (Auto) (0-4) % Baso % (Auto) (0-2) % Lymph # (Auto) (1.2-4.9) X10*3/uL [place] # (Auto) (0.1-1.2) X10*3/uL Eos # (Auto) (0.0-0.4) X10*3/uL Baso # (Auto) (0.0-0.2) X10*3/uL Abs Immat Gran (auto) (0.00-0.03) X10*3/uL Absolute Neuts (auto) (2.0-8.3) x10*3/uL Absolute Nucleated RBC (0.0-0.012) X10*3/uL Nucleated RBC % (auto) (0.0-0.2) /100WBC PT (9.9-13.0) SEC INR (0.9-1.1) Lactic Acid 1.2 (0.5-2.0) mmol/L COVID-19 (JOSE) (Negative) COVID-19 Clin Com Discharge Plan Discharge Clinical Impression: Abdominal pain, Fever Prescriptions: No Action gabapentin 800 mg tablet 1 tab PO BID PRN (Reason: Pain) RF: 0 finasteride [Proscar] 5 mg Tablet 5 mg PO DAILY Qty: 30 RF: 0 oxycodone 10 mg tablet 10 mg PO Q4H PRN (Reason: pain) Qty: 30 RF: 0 cefuroxime axetil 250 mg tablet 250 mg PO BID 10 Days Qty: 20 RF: 0 PMFSH Past Medical History Medical History Chronic UTI (urinary tract infection) Beth catheter in place Paraplegia Spinal cord injury Social History Social History Household Members: None Housing: House Do you presently have visiting nurse or other home services: Yes (aid comes 1 hr every morning) Alcohol intake: never Patient Tobacco Use Status: Former Tobacco user Advance Directives: Yes Advance Directives on File: Yes Advance Directives Date on File: 04/01/21 service: Yes Current occupational status: disabled
[2021-09-22 01:50] VITALS: TEMP 38.2
[2021-09-22 01:55] LABS: Basophils Percent Auto 0.2 % (0-2); Eosinophils Percent Auto 0.8 % (0-4); Hematocrit 33.4 % (42.0-52.0); Hemoglobin 10.1 g/dl (14.0-18.0); Imm Gran Abs Auto 0.01 X10*3/uL (0.00-0.03); Imm Gran Pct Auto 0.2 % (0.0-0.4); Lymphocytes Absolute Auto 0.5 X10*3/uL (1.2-4.9); Lymphocytes Percent Auto 9.7 % (20-40); MANUAL DIFF FLAG NO; Mean Corpuscular HGB Conc 30.2 g/dl (31.0-36.0); Mean Corpuscular Volume 89.3 fL (80.0-98.0); Mean Platelet Volume 9.8 fL (9.4-12.4); Monocytes Absolute Auto 0.3 X10*3/uL (0.1-1.2); Monocytes Percent Auto 6.8 % (2-11); Neutrophils Percent Auto 82.3 % (45-73); Platelet Count 233 X10*3/uL (160-400); Red Blood Count 3.74 X10*6/uL (4.60-5.80); Red Cell Distribution Width 14.6 % (11.0-16.0); White Blood Count 4.9 X10*3/uL (4.8-10.8)
[2021-09-22 01:56] LABS: IDNOW Serial# 9DD0AD1C
[2021-09-22 01:57] LABS: COVID-19 Test Positive (Negative)
[2021-09-22 02:00] LABS: Lactic Acid 1.2 mmol/L (0.5-2.0)
[2021-09-22 02:02] LABS: INTERNATIONAL NORM RATIO 1.3 (0.9-1.1); Prothrombin Time 14.8 SEC (9.9-13.0)
[2021-09-22 02:16] LABS: Alanine Aminotransferase 30 U/L (0-40); Alkaline Phosphatase 125 U/L (39-117); Anion Gap 11 (12-20); Aspartate Amino Transferase 55 U/L (5-37); Bilirubin Direct 0.5 mg/dL (0.0-0.5); Bilirubin Total 0.8 mg/dL (0.0-1.0); Blood Urea Nitrogen 12 mg/dL (9-16); Calcium 8.3 mg/dL (8.4-10.2); Carbon Dioxide 25 mmol/L (22-29); Chloride 104 mmol/L (96-108); Creatinine Clr Calc Pharmacy 100.4; Estimated Glomerular Filt Rate > 60; Glucose Random 126 mg/dL (60-115); Potassium 4.2 mmol/L (3.3-5.1); Sodium 136 mmol/L (135-145); Total Protein 5.8 g/dL (6.5-8.0)
[2021-09-22 03:09] LABS: Appearance Urine HAZY; Color Urine YELLOW; Glucose Urine UA NEG (NEG); Leukocyte Esterase Urine 2+ (NEG); Nitrite Urine POS (NEG); UACC Culture Trigger YES; Urine Blood 2+ (NEG); Urine Ketones NEG (NEG); Urine Protein NEG (NEG-TRACE)
[2021-09-22 03:16] LABS: Bacteria Urine 4+ /LPF; Squamous Epithelial Cell Urine 2+ /LPF; WBC Urine 30-49 /HPF (0-4)
[2021-09-22] MEDS: iohexoL 350 MG/ML 100 ML INFUS..BTL IV (03:47)
--- NOTE | 2021-09-22 03:50 | PC.NURSE ---
Pt agreeable to COVID swab, lab collection, PIV placement, and Beth exchange. Pt refused IV fluids and IV abx, stated that having something attached to PIV gives him pain. Endorsed to MD Bailon
== END 2021-09-22 05:50 | disposition home or self-care (01) ==
PROVIDERS: Emergency Provider Emergency Medicine
DX: U07.1 COVID-19 (principal); R10.32 Left lower quadrant pain; R50.9 Fever, unspecified; G82.20 Paraplegia, unspecified; Z87.440 Personal history of urinary (tract) infections; Z96.0 Presence of urogenital implants
CPT/HCPCS: 36415; 71045; 74177; 80048; 80076; 81001; 83605; 85025; 85610; 87040; 87086; 87088; 87186; 87635; 93005; 96361; 96374; 99283; 99284; Q9967